=== PATIENT | female | born 1960 | race Two or more races ===

== ENCOUNTER 2023-01-25 09:40 | Outpatient (OUT) | payer OTHER, SELFPAY ==
[2023-01-25 10:31] LABS: Basophils Absolute Auto 0.1 10^3/uL (0.0-0.1); Basophils Percent Auto 0.7 % (0.2-2.0); Eosinophils Absolute Auto 0.2 10^3/uL (0.0-0.7); Eosinophils Percent Auto 2.5 % (0.9-7.0); Hematocrit 42.9 % (36.0-48.0); Hemoglobin 13.9 g/dL (12.0-16.0); Immature Granulocytes Abs Auto 0.04 10^3/uL (0.00-0.03); Immature Granulocytes Pct Auto 0.5 % (0.0-0.5); Lymphocytes Absolute Auto 1.5 10^3/uL (1.2-3.8); Lymphocytes Percent Auto 18.7 % (20.5-60.0); Mean Corpuscular HGB Conc 32.4 g/dL (29.9-35.2); Mean Corpuscular Hemoglobin 27.7 pg (26.7-34.0); Mean Corpuscular Volume 85.6 fL (81.0-99.0); Monocytes Absolute Auto 0.5 10^3/uL (0.3-0.8); Monocytes Percent Auto 6.2 % (1.7-12.0); Neutrophils Absolute Auto 5.8 10^3/uL (1.4-6.5); Neutrophils Percent Auto 71.4 % (43.0-75.0); Platelet Count 213 10^3/uL (150-450); Red Blood Count 5.01 10^6/uL (4.20-5.40); Red Cell Distribution Width 13.2 % (11.0-15.0); White Blood Count 8.1 10^3/uL (4.0-11.0)
[2023-01-25 11:29] LABS: Alanine Aminotransferase 29 U/L (14-59); Albumin Globulin Ratio 1.1; Albumin Level 3.9 g/dL (3.4-5.0); Alkaline Phosphatase 111 U/L (46-116); Anion Gap 10.7; Aspartate Amino Transferase 18 U/L (15-37); BUN Creatinine Ratio 23.4; Bilirubin Total 0.4 mg/dL (0.2-1.0); Calcium 9.5 mg/dL (8.5-10.1); Carbon Dioxide 29.6 mmol/L (21.0-32.0); Chloride 106 mmol/L (98-107); Cholesterol 171 mg/dL (<=200); Estimated GFR (African America >60 (>=60); Estimated GFR (Non-African Ame >60 (>=60); Globulin 3.4 g/dL; Glucose 113 mg/dL (74-106); HDL Cholesterol 43 mg/dL (40-60); Potassium 4.3 mmol/L (3.5-5.1); Sodium 142 mmol/L (136-145); Total Protein 7.3 g/dL (6.4-8.2); Triglycerides 215 mg/dL (<=150)
[2023-01-26 05:07] LABS: HCV Ab Non Reactive (Non Reactive); HIV Ab/p24 Ag Screen Non Reactive (Non Reactive)
== END 2023-01-25 09:41 | disposition home or self-care (01) ==
PROVIDERS: PCP Nurse Practitioner Primary Care; Visit Provider Nurse Practitioner Primary Care
DX: Z00.00 Encounter for general adult medical examination without abnormal findings (principal); Z11.59 Encounter for screening for other viral diseases; Z13.6 Encounter for screening for cardiovascular disorders; Z11.4 Encounter for screening for human immunodeficiency virus [HIV]; Z13.21 Encounter for screening for nutritional disorder
CPT/HCPCS: 36415; 80053; 80061; 82306; 82607; 85025; 86803; 87389

== ENCOUNTER 2023-01-29 09:25 | Outpatient (OUT) | payer OTHER, SELFPAY ==
--- NOTE | 2023-01-29 09:27 | MM_ITS ---
Patient: KARLOS PISANO Exam Date: 01/29/2023 : 1960 Gender:F Ordering : QI Hawk ALEJANDROALEXYS Admission #: [id number] Family : Order #: [id number] CLICK HERE TO VIEW EXAM RADIOLOGY REPORT PROCEDURE: MM TOMOSYNTHESIS SCREENING BI COMPARISON: MG MAMM SASCHA DIAG FU, 02/24/2022. MG MAMM SCREEN 3D SASCHA CAD, 01/04/2022. INDICATIONS: Screening Calculator Name NCI Breast Cancer Risk Assessment Tool 5 Year Breast Cancer Risk 2.00% Lifetime Breast Cancer Risk 9.70% Personal Breast Cancer No Personal Ovarian Cancer No Treatments None Family Cancers None LOCATION: [facility] BREAST COMPOSITION: Scattered areas fibroglandular density. FINDINGS: DIAGNOSTIC CATEGORY 2--BENIGN FINDING: RIGHT BREAST: No significant suspicious finding. Scattered benign-appearing nodules are present. Scattered benign-appearing calcifications are present. No significant change has occurred. LEFT BREAST: No significant suspicious finding. Scattered benign-appearing nodules are present. No significant change has occurred. RECOMMENDATIONS: ROUTINE MAMMOGRAM AND CLINICAL EVALUATION IN 12 MONTHS. PLEASE NOTE: A NORMAL MAMMOGRAM DOES NOT EXCLUDE THE POSSIBILITY OF BREAST CANCER. A CLINICALLY SUSPICIOUS PALPABLE LUMP SHOULD BE BIOPSIED. Dictated by: Maurizio Mcdonald M.D. on 01/30/2023 at 13:03 Approved by: Maurizio Mcdonald M.D. on 01/30/2023 at 13:09
== END 2023-01-29 09:26 | disposition home or self-care (01) ==
LOC: MAMMO 09:25
PROVIDERS: PCP Nurse Practitioner Primary Care; Visit Provider Nurse Practitioner Primary Care
DX: Z12.31 Encounter for screening mammogram for malignant neoplasm of breast (principal)
CPT/HCPCS: 77063; 77067

== ENCOUNTER 2023-02-09 08:24 | Outpatient (OUT) | payer OTHER, SELFPAY ==
--- NOTE | 2023-02-09 08:29 | CT_ITS ---
[address] [address] Patient Name: KARLOS PISANO MRN: [id number] date: 1960 Sex: F Assigned Patient Location: CT Current Patient Location: CT Accession/Order Number: [id number] Exam Date: 02/09/2023 08:35 Report Date: 02/09/2023 09:22 At the request of: QI RUGGIERO Procedure: CT chest wo con CT chest wo con: 02/09/2023 8:35 AM EDT CLINICAL HISTORY: 62 years old Female with Pulmonary Nodule R91.1. TECHNIQUE: CT chest wo con was performed with axial CT images through the thorax as well as sagittal and coronal reformations also obtained without intravenous administration of intravenous contrast. Dose reduction techniques were achieved by using automated exposure control and/or adjustment of mA and/or kV according to patient size and/or use of iterative reconstruction technique. COMPARISON: None FINDINGS: The heart is normal in size. There is no pericardial effusion. There are mildly enlarged mediastinal lymph nodes, largest measuring up to 1.0 cm. Right upper lobe calcified granuloma. No focal consolidation pneumothorax or pleural effusion. Status post cholecystectomy. The osseous structures are intact. CT/CT chest wo con IMPRESSION: Right upper lobe calcified granuloma. Mild mediastinal lymphadenopathy. Electronically authenticated by: VICKI KAPLAN Date: 02/09/2023 09:22
== END 2023-02-09 08:25 | disposition home or self-care (01) ==
LOC: CT 08:24
PROVIDERS: PCP Nurse Practitioner Primary Care; Visit Provider Nurse Practitioner Primary Care
DX: R91.1 Solitary pulmonary nodule (principal)
CPT/HCPCS: 71250

== ENCOUNTER 2023-02-19 13:33 | Outpatient (OUT) | payer OTHER, SELFPAY | END 2023-02-19 13:34 | disposition home or self-care (01) | LOC: PST 13:33 | PROVIDERS: PCP Nurse Practitioner Primary Care; Visit Provider Surgery | DX: Z01.818 Encounter for other preprocedural examination (principal); Z12.11 Encounter for screening for malignant neoplasm of colon ==

== ENCOUNTER 2023-02-23 07:13 | Day surgery (SDC) | payer OTHER, SELFPAY ==
[2023-02-15] MEDS: LACTATED RINGER'S SOLUTION 1,000 ML 75 ML IV (07:00)
[2023-02-23 07:29] VITALS: BP 145/107; PULSE 73; RESP 16; TEMP 35.9; O2SAT 98; BMI 38.2
[2023-02-23 07:57] LABS: Glucometer 111 mg/dL (74-106)
[2023-02-23 09:03] VITALS: BP 127/75; PULSE 80; RESP 18; O2SAT 100
[2023-02-23 09:18] VITALS: BP 128/74; PULSE 78; RESP 16; O2SAT 96
[2023-02-23 09:33] VITALS: BP 157/100; PULSE 64; RESP 16; O2SAT 96
--- NOTE | 2023-02-23 11:20 | PM.GSPRC ---
Date of procedure: 02/23/23 Indications for Procedure: This patient is a 62-year-old female who presents for screening colonoscopy. The risks benefits options and potential complications of the procedure were discussed in detail with the patient and they agreed to proceed and consent was signed. Pre-op diagnosis: colon cancer screening Post-op diagnosis: other (diverticulosis, colon polyp) Procedure: colonoscopy with snare cautery polypectomy Anesthesia: MAC Surgeon: Dwaine Castillo Procedure Summary: The patient was brought to the endoscopy suite and placed in the left lateral decubitus position.? Under MAC the fiberoptic colonoscope was introduced into the rectum. This was gradually advanced through the colon to the cecum. The cecal landmarks were identified. The bowel prep was good. Gradual withdrawal of the colonoscope was then undertaken. in the region of the splenic flexure there was a fairly large pedunculated adenomatous appearing polyp which was noted upon progressing the colonoscope. This was subsequently excised in its entirety with snare cautery polypectomy. The base was hemostatic. Due to its large size the polyp was grasped with a Kumar net. The colonoscope was then gradually withdrawn. There were a few scattered diverticula in the descending colon otherwise the remainder of the colon as well as anal rectal canal was unremarkable. The polyp was retrieved intact. Follow-up colonoscopy will be pending pathology report. The patient tolerated the procedure well and was transferred to the recovery area in stable condition. Estimated blood loss (mL): 1 Specimens: colon polyp Complications: No
== END 2023-02-23 09:33 | disposition home or self-care (01) ==
PROVIDERS: Anesthesiology; PCP Nurse Practitioner Primary Care; Visit Provider Surgery
PROC: (CPT 811; principal; 2023-02-23 08:30)
DX: Z12.11 Encounter for screening for malignant neoplasm of colon (principal); K57.30 Diverticulosis of large intestine without perforation or abscess without bleeding; D12.6 Benign neoplasm of colon, unspecified; I10 Essential (primary) hypertension; E07.9 Disorder of thyroid, unspecified; Z90.49 Acquired absence of other specified parts of digestive tract; Z90.710 Acquired absence of both cervix and uterus; Z87.891 Personal history of nicotine dependence; E11.9 Type 2 diabetes mellitus without complications
CPT/HCPCS: 00811; 45385; 36415; 36416; 82948; 88305; J2704

== ENCOUNTER 2023-04-14 11:18 | Emergency (ER) | payer OTHER, SELFPAY ==
[2023-04-14 11:22] VITALS: BP 131/86; PULSE 98; RESP 18; TEMP 36.8; O2SAT 96; BMI 39.5
--- NOTE | 2023-04-14 11:47 | XR_ITS ---
The [address] [address] Patient Name: KARLOS PISANO MRN: [id number] date: 1960 Sex: F Assigned Patient Location: ED.MAIN Current Patient Location: Accession/Order Number: [id number] Exam Date: 04/14/2023 12:15 Report Date: 04/14/2023 14:01 At the request of: PIA MCKENNA Procedure: XR hip LT 2V w/ pelvis EXAMINATION: XR hip LT 2V w/ pelvis, 04/14/2023 12:59 PM CDT INDICATION: pain TECHNIQUE: 3 views COMPARISON(S): None available FINDINGS: There is no fracture or malalignment. Joint spaces are preserved. Normal bone mineralization. Pubic symphysis and sacroiliac joints are congruent with mild degenerative changes of the sacroiliac joints. Soft tissues are unremarkable. Mild spondylosis of the lower lumbar spine. XR/XR hip LT 2V w/ pelvis IMPRESSION: No acute osseous findings. Electronically authenticated by: JOSELITO MAYO Date: 04/14/2023 14:01
--- NOTE | 2023-04-14 11:47 | ED.LOWEXI1 ---
HPI - Extremity Injury (Lower) General Chief Complaint: Extremity Injury, Lower Stated Complaint: HIP PAIN NON TRAUMATIC Time Seen by Provider: 04/14/23 11:35 Source: patient Mode of arrival: Wheelchair Limitations: no limitations History of Present Illness HPI Narrative: Coming to the ER with a left-sided hip pain that radiated down to her knee that has been going on at least for the last few days the patient denies any fall or trauma he also denies any other complaints of nausea vomiting or any other pain No history of weakness or numbness or tingling Related Data Home Medications Medication Instructions Recorded Confirmed ergocalciferol (vitamin D2) 1,250 .monthly 02/19/23 mcg (50,000 unit) capsule losartan 100 mg tablet 100 mg PO DAILY 02/19/23 02/23/23 metformin 500 mg tablet,extended mg PO BID 02/19/23 release 24 hr terbinafine HCl 250 mg tablet mg PO DAILY 02/19/23 thyroid (pork) 120 mg tablet 120 mg PO DAILY 02/19/23 02/23/23 (Treynor Thyroid) Previous Rx's Medication Instructions Recorded diclofenac sodium 75 mg 75 mg PO BID PRN pain #10 tabs 04/14/23 tablet,delayed release orphenadrine citrate 100 mg 100 mg PO BID PRN muscle spasm #14 04/14/23 tablet,extended release tabs Allergies Allergy/AdvReac Type Severity Reaction Status Date / Time No Known Drug Allergies Allergy Verified 02/23/23 07:27 Review of Systems ROS Status of ROS 10 or more systems reviewed and unremarkable except as noted in history and below [facility] Medical History (Updated 04/14/23 @ 13:26 by Janice Stein MD) Colonoscopy planned Knee arthropathy ?M17.10 - Unilateral primary osteoarthritis, unspecified knee (ICD-10) Surgical History (Updated 02/19/23 @ 12:25 by Lizette Sapp) H/O arthroscopic knee surgery ?Z98.890 - Other specified postprocedural states (ICD-10) H/O: hysterectomy ?Z90.710 - Acquired absence of both cervix and uterus (ICD-10) History of cholecystectomy ?Z90.49 - Acquired absence of other specified parts of digestive tract (ICD-10) Previous section ?Z98.891 - History of uterine scar from previous surgery (ICD-10) Family History (Updated 02/19/23 @ 12:26 by Lizette Sapp) Other Family history not known due to adoption Social History (Updated 02/19/23 @ 12:33 by Lizette Sapp) Smoking status: Former smoker Exam Narrative Exam Narrative: Nurses notes and vital signs reviewed and patient is not hypoxic. General: Well-appearing and in no apparent distress. Skin: Warm, dry, no pallor noted. No rash. Head: Normocephalic, atraumatic. Neck: Supple, non-tender. Eye: Pupils are equal, round and EOMI. No scleral icterus. Ears, Nose, Mouth, and Throat: TM are clear, no nasal mucosal hypertrophy. Oral mucosa is moist, no posterior oropharynx erythema, uvula is mid-line Cardiovascular: Regular Rate and Rhythm without murmur, gallop or rub. Respiratory: No accessory muscle use or respiratory distress. Lungs are clear to auscultation, no wheezing, rales or rhonchi Chest Wall: no tenderness Back: No midline thoracic or lumbar vertebral tenderness. No CVA tenderness Musculoskeletal: normal ROM, no calf or popliteal tenderness, no lower extremity edema/swelling, there is tenderness upon palpation of the left hip with no limitation of movement GI: Abdomen is soft, non-distended. Normal bowel sounds. No masses appreciated. No tenderness to palpation. No rebound, guarding, or rigidity noted. Neurological: A&O x4. No cranial nerve dysfunction observed. No truncal ataxia. Moves all extremities. Sensation intact. Psychiatric: Cooperative and interactive. Normal mood and affect. Constitutional Vital Signs, click to edit/add: Last Vital Signs Temp 98.3 F 04/14/23 11:22 Pulse 98 H 04/14/23 11:22 Resp 18 04/14/23 11:22 BP 131/86 04/14/23 11:22 Pulse Ox 96 04/14/23 11:22 O2 Del Method Room Air 04/14/23 11:22 Course Vital Signs Vital signs: Vital Signs Temperature 98.3 F 04/14/23 11:22 Pulse Rate 98 H 04/14/23 11:22 Respiratory Rate 18 04/14/23 11:22 Blood Pressure 131/86 04/14/23 11:22 Pulse Oximetry 96 04/14/23 11:22 Oxygen Delivery Method Room Air 04/14/23 11:22 Temperature 98.3 F 04/14/23 11:22 Pulse Rate 98 H 04/14/23 11:22 Respiratory Rate 18 04/14/23 11:22 Blood Pressure 131/86 04/14/23 11:22 Pulse Oximetry 96 04/14/23 11:22 Oxygen Delivery Method Room Air 04/14/23 11:22 MDM - Extremity Injury (Lower) MDM Narrative Medical decision making narrative: X-ray of the patient hip showed no acute significant pathology right now the patient was discharged home with supportive care with NSAID and Norflex The patient is to follow up with primary care physician in next 2-3 days or to return to the emergency department should any of the signs or symptoms worsen or new symptoms develop. The patient agrees with the following Diagnosis and Treatment plan and the patient will be discharged home. Discharge Plan Discharge Chief Complaint: Extremity Injury, Lower Clinical Impression: Acute hip pain Patient Disposition: Home, Self-Care Time of Disposition Decision: 13:25 Condition: Good Prescriptions / Home Meds: New orphenadrine citrate 100 mg tablet extended release 100 mg PO BID PRN (Reason: muscle spasm) Qty: 14 0RF diclofenac sodium 75 mg tablet,delayed release (DR/EC) 75 mg PO BID PRN (Reason: pain) Qty: 10 0RF No Action metformin 500 mg tablet extended release 24 hr PO BID terbinafine HCl 250 mg tablet PO DAILY ergocalciferol (vitamin D2) 1,250 mcg (50,000 unit) capsule .monthly losartan 100 mg tablet 100 mg PO DAILY thyroid (pork) [Treynor Thyroid] 120 mg tablet 120 mg PO DAILY Instructions: Hip Pain (ED) Stand Alone Forms: Portal Instructions Referrals: QI RUGGIERO APRN [Primary Care Provider] - 1 week Discharge Date/Time: 04/14/23 13:37
[2023-04-14] MEDS: ORPHENADRINE 60 MG/ 2 ML VIAL IM (12:09)
[2023-04-14] MEDS: KETOROLAC TROMETHAMINE 30 MG/ML VIAL IM (12:09)
[2023-04-14 13:36] VITALS: BP 94/53; PULSE 76; RESP 16; O2SAT 97
== END 2023-04-14 13:37 | disposition home or self-care (01) ==
PROVIDERS: Emergency Provider Emergency Medicine; PCP Nurse Practitioner Primary Care
DX: M25.552 Pain in left hip (principal); Z79.899 Other long term (current) drug therapy; Z79.84 Long term (current) use of oral hypoglycemic drugs; Z90.710 Acquired absence of both cervix and uterus; Z90.49 Acquired absence of other specified parts of digestive tract; Z98.890 Other specified postprocedural states; Z98.891 History of uterine scar from previous surgery; Z87.891 Personal history of nicotine dependence
CPT/HCPCS: 73502; 96372; 99284

== ENCOUNTER 2023-04-17 07:51 | Outpatient (RCR) | payer OTHER, SELFPAY | END 2023-04-18 16:36 | disposition home or self-care (01) | LOC: PT 07:51 | PROVIDERS: PCP Nurse Practitioner Primary Care; Visit Provider Nurse Practitioner Primary Care | DX: Z02.71 Encounter for disability determination (principal); M25.562 Pain in left knee; M25.561 Pain in right knee; G89.29 Other chronic pain | CPT/HCPCS: 97750 ==

== ENCOUNTER 2024-02-14 08:45 | Outpatient (OUT) | payer OTHER, SELFPAY ==
--- OUTSIDE RECORDS SUMMARY | 2024-02-14 08:50 | XMS_ITS | CCD ---
Author Organization [facility]iniSyn[facility] Care Team Providers Care Tumbling Instructor Name Role Phone Jd Timmons Unavailable Unavailabl e *SELF, REFERRED Unavailable Unavailable Maurizio Penny Unavailable UnavailJd Almaraz Unavailable UnavailMaurizio Paulino Primary Care Provider UnavailDada Ely Attending Provider Unavailable Maurizio Penny Primary Care Provider Maurizio Penny Unavailable Unavailable Unavailable JOSE D CALDERON Attending Unavailable DR DARREN ALARCON V Consulting Unavailable YUMIKO, JOSE D Primary Care Unavailable YUMIKO, JOSE D Admitting Unavailable YUMIKO, JOSE D Consulting Unavailable Zieber, Consulting Unavailable YUMIKO, JOSE D Admitting Unavailable YUMIKO, JOSE D Attending Unavailable DANIELA CALDERONI Consulting Unavailable MISC, DR JACKSON Attending Unavailable DR DARREN ALARCON V Consulting Unavailable MISC, DR JACKSON Admitting Unavailable YUMIKO, JOSE D Primary Care Unavailable MISC, DR JACKSON Consulting Unavailable SHAMMO, QI Primary Care Unavailable Unavailable Primary Care Provider UnavailJORDON Matias Referring Unavailable Maurizio Penny Primary Care Unavailable Livan Andrade Attending Unavailable Livan Andrade Admitting Unavailable JORDON PAT Attending Unavailable JORDON PAT Attending Unavailable MAE BOOGIE Referring Unavailable EROS ROGERS Attending Unavailable EROS ROGERS Attending Unavailable Unavailable Unavailable Unavailable Medications Current Medications Medication Drug Class(es) Dates Sig (Normalized) Sig (Original) acetaminophen 325 mg oral tablet (3 sources) Start: 12-10-2018 take 650 mg by mouth every four hours Acetaminophen Active 650 MG Oral Q4H 0 December 10, 2018 1:14pm acetaminophen 325 mg / oxyCODONE hydrochloride 5 mg oral tablet (6 sources) Opioid Agonist Start: 01-01-2020 oxyCODONE-acetamino phen 5-325 MG per tablet Start: 12-09-2017 take 1 tablet by lula th every six hours Oxycodone-Acetaminophen Active 1 TAB Ora l Q6H December 16, 2018 6:38pm ascorbic acid 1000 mg oral tablet (3 sources) Vitamin C Start: 08-30-2018 take 1000 mg by mouth once daily Ascorbic Acid (Vitamin C) Active 1000 MG Oral Daily August 30, 2018 11:01am atorvastatin 10 mg oral tablet (1 source) HMG-CoA Reductase Inhibitor Start: 01-23-2023 take 1 tablet by mouth once daily atorvastatin (LIPITOR) 10 mg tablet Indications: Mixed hyperlipidemia TAKE ONE TABLET BY MOUTH DAILY 90 tablet 3 01/23/2023 Active celecoxib 200 mg oral capsule (2 sources) Nonsteroidal Anti-inflammatory Drug Start: 03-25-2020 take 1 capsule by mouth once daily celecoxib 200 MG capsule Take 1 capsule by mouth daily. 30 capsule 0 03/25/2020 Active cholecalciferol 1000 unt oral capsule (3 sources) Vitamin D Start: 08-30-2018 take 1 capsule by mouth once daily Cholecalciferol (Vitamin D3) Active 1 CAP Oral Daily August 30, 2018 11:01am ergocalciferol 1.25 mg oral capsule (5 sources) Provitamin D2 Compound Start: 10-31-2022 take 1 capsule by mouth every 30 days VITAMIN D2 1,250 mcg (50,000 unit) capsule Take 1 capsule (50,000 Units total) by mouth every 30 (thirty) days. 3 capsule 3 10/31/2022 Active Start: 03-27-2016 take 99678 [IU] by m outh every month Ergocalciferol (Vitamin D2) Active 17494 UNITS Oral every month December 08, 2017 7:31pm losartan potassium 100 mg oral tablet (8 sources) Angiotensin 2 Receptor Ander Start: 04-12-2021 take 1 tablet by mouth once daily losartan (COZAAR) 100 mg tablet 1 tab(s), PO, Daily, # 90 tab(s), 3 Refill(s), Pharmacy: [facility] [id number], TAKE ONE TABLET BY MOUTH DAILY 0 04/12/2021 Active Start: 03-04-2020 losartan 100 M G tablet Start: 12-08-2017 take 25 mg by mouth once daily in the morning Losartan Active 25 MG Oral Every morning December 08, 2017 7:31pm Start: 03-12-2017 take 0.5 tablet by m outh in the morning losartan (COZAAR) 25 mg tablet Take 0.5 tablets (12.5 mg total) by mouth in the morning. 0 03/12/2017 Active Start: 06-09-2016 Losartan Anjali sium 25 MG Oral Tablet Quantity: 15 Refills: 0 Ordered: 12-Mar-2017 DO Start : 09-Jun-2016 Active 24 hr metFORMIN hydrochloride 500 mg extended release oral tablet (2 sources) Biguanide Start: 08-21-2022 End: 08-14-2023 take 1 tablet by mouth twice daily metFORMIN XR (GLUCOPHAGE XR) 500 mg 24 hr tablet Indications: Type 2 diabetes mellitus without complication, without long-term current use of insulin (CMS-HCC) TAKE ONE TABLET BY MOUTH TWICE A DAY 180 tablet 3 08/14/2023 Active omega 6-sft-fwu-fish oil (Fish OiL) 300-1,000 mg capsule (1 source) omega 3-dha-epa- fish oil (Fish OiL) 300-1,000 mg capsule Take by mouth. 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 TAKE ONE TABLET BY MOUTH ONCE DAILY EXCEPT TAKE 2 TABLETS BY MOUTH ON SUNDAY AND TAKE 2 TABLETS BY MOUTH ON SUNDAY 117 tablet 3 10/03/2022 Active Start: 10-12-2017 [place] Thyroid 60 MG tablet Completed/Discontinued Medications Medication Drug Class(es) Dates Sig (Normalized) Sig (Original) DULoxetine 60 mg delayed release oral capsule (1 source) Serotonin and Norepinephrine Reuptake Inhibitor Start: 8 take 1 capsule by mouth once daily DULoxetine HCl - 60 MG Oral Capsule Delayed Release Particles TAKE ONE CAPSULE BY MOUTH EVERY DAY Quantity: 30 Refills: 0 Ordered: 30-Apr-2018 Nereyda Ford DO Start : 20-Mar-2018 Active ibuprofen 800 mg oral tablet (1 source) Nonsteroidal Anti-inflammatory Drug Start: 8 Ibuprofen 800 MG Oral Tablet take 1 tablet by mouth every 6 to 8 hours if needed for MODERATE pain Quantity: 30 Refills: 0 Ordered: 09-Dec-2017 DO Start : 09-Dec-2017 Active lidocaine 0.05 mg/mg medicated patch (1 source) Antiarrhythmic, Amide Local Anesthetic Start: 8 Lidocaine 5 % External Patch APPLY 1 PATCH TO THE AFFECTED AREA AND LEAVE IN PLACE FOR 12 HOURS, THEN REMOVE AND LEAVE OFF FOR 12 HOURS. Quantity: 1 Refills: 1 Ordered: 23-Jan-2018 AlbertNereyda johnson DO Start : 23-Jan-2018 Active meloxicam 15 mg oral tablet (1 source) Nonsteroidal Anti-inflammatory Drug Start: 8 take 1 tablet by mouth once daily Meloxicam 15 MG Oral Tablet TAKE 1 TABLET BY MOUTH EVERY DAY Quantity: 30 Refills: 2 Ordered: 10-Apr-2018 AlbertNereyda johnson DO Start : 23-Jan-2018 Active methylPREDNISolone 4 MG Oral Tablet Therapy Pack (1 source) Start: 8 methylPREDNISolone 4 MG Oral Tablet Therapy Pack as directed Quantity: 1 Refills: 0 Ordered: 28-Dec-2017 Kareen Hardy MD Start : 28-Dec-2017 Active predniSONE 10 mg oral tablet (1 source) Start: 8 take 1 tablet by mouth four times daily predniSONE 10 MG Oral Tablet take 1 tablet by mouth four times a day for 3 days then 1 tablet ... Quantity: 30 Refills: 0 Ordered: 27-Aug-2017 DO Start : 27-Aug-2017 Active Problems Active Problems Problem Classification Problem Date Documented Date Episodic/Chronic Complication of device; implant or graft (2 sources) Pain due to hip joint prosthesis; Translations: [Pain due to knee joint prosthesis] Episodic Diabetes mellitus with complications (3 sources) Type 2 diabetes mellitus with hyperglycemia; Translations: [Type 2 diabetes mellitus with hyperglycemia] Onset: 10-10-2023 Chronic Diabetes mellitus without complication (1 source) Type 2 diabetes mellitus without complication; Translations: [Type 2 diabetes mellitus without complications] 08-14-2023 Chronic Essential hypertension (2 sources) Essential hypertension; Translations: [Essential (primary) hypertension] Onset: 07-06-2016 Resolved: 01-10-2022 05-21-2022 Chronic Nonmalignant breast conditions (4 sources) Unspecified lump in unspecified breast; Translations: [UNSPECIFIED LUMP IN UNSPEC BREAST] Onset: 02-24-2022 Episodic Osteoarthritis (6 sources) Bilateral primary osteoarthritis of knee; Translations: [Bilateral osteoarthritis of knees] Onset: 06-05-2018 Chronic Other circulatory disease (1 source) H/O: hypertension; Translations: [Personal history of other diseases of circulatory system] Episodic Other connective tissue disease (3 sources) History of total knee arthroplasty; Translations: [History of total left knee replacement (TKR)] Chronic Other non-traumatic joint disorders (1 source) Arthropathy; Translations: [Arthropathy, unspecified, site unspecified] Chronic Other non-traumatic joint disorders (2 sources) Pain in unspecified knee; Translations: [Chronic knee pain] Episodic Other screening for suspected conditions (not mental disorders or infectious disease) (6 sources) Encounter for screening for osteoporosis; Translations: [Encounter for screening mammogram for malignant neoplasm of breast] Onset: 01-04-2022 Episodic Residual codes; unclassified (4 sources) Asymptomatic menopausal state; Translations: [ASYMPTOMATIC MENOPAUSAL STATE] Onset: 02-24-2022 Episodic Thyroid disorders (1 source) 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; Translations: [Other specified hypothyroidism] Onset: 07-06-2016 05-21-2022 Chronic Unclassified (1 source) History of bilateral total knee replacement; Translations: [History of total knee arthroplasty, bilateral] Past or Other Problems Problem Classification Problem Date Documented Da te Episodic/Chronic Conditions associated with dizziness or vertigo (1 source) Dizziness and giddiness; Translations: [Dizziness and giddiness] Resolved: 01-10-2022 01-10-2022 Episodic Other lower respiratory disease (1 source) Dyspnea; Translations: [Shortness of breath] Resolved: 01-10-2022 01-10-2022 Episodic Other nutritional; endocrine; and metabolic disorders (1 source) Obesity; Translations: [Obesity, unspecified] Resolved: 01-10-2022 01-10-2022 Chronic Results Test Name Value Interpretation Reference Range Facility Follow-Upon 01-10-2024 Follow-Up [id number] Anju Pisano 1960 F Date Provider Department Center 01/10/2024 [id number] PAT [facility] No family history on file Level of Service:07779 CO OFFICE/OUTPATIENT ESTABLISHED LOW MDM 20 MIN Reason for Visit and Comments: Follow-up [647934] [facility] Coding Summaryon 12-01-2023 Coding Summary HTMLBase 64 XzmkeoqiVAh6zSg+PGhlYWQ+TU5NMUFxW 99geOGpsP5dS9BFVYcEXtqiFOZMJLeFEk FiqhTcUY3irXLqQVCe IC8+ZY3mEFHhTpjwtPKjp2Y5pYI4X32ew t9nPThmoZG1KATuNlHqjsghb6yugPc6PY cuNmluOyBt JVHcwU04ZBT7bJ71Ni72uZNofENbh1hao Zr0KoTgLIVzCAC6fEleVPtnh0StVIPeH1 8jsSAzm8F9 QCVecQuvcIGuFxDomNF1wR3tZYsmmodai 7qhwsqxWgv2cc92yMDyu1O1iMZ6N9Wzri Y2SQLmwLEh PzkdxSPXaF6qgkwvq7mhjaknAsKyCQMqV Xx9OXw1NYMqxKgdGaUwJZ08LGX3FQHqlw UkP7TzYNJv uSjwRwS1j4K4Vq9CY8DBSwqdR2VDWVDJG TwvdGQ+GW54pi35U4OoYllsWul8XKSbQO E1sIK2sK1v CTMcGBimy9C8yXK6F4PiifQtct7hz3maL XTuVNzcK38mcZUua7I1GMWucYZ3LLGziH lkCySueB94 Oyc+UIIqwRndl4JuEumlj4txe3wikDp4A pwmSYAsvzKvmVnsFFJ9k5IxPw3gDKXedM J0cCK3tA9p MtKxRoA3KPykD006IzGzeQLoVqmjT87cD 3JvdXA+YCCgHvb7RIKpkIgpCF4tS2HcXI RpbmctbGVm hBgsPP4dKFAmdvpsKUVmgJ2eOEQhA5a8Y uYeZeY2NLhjZ5BkKMNwsrgcHs46qE1bXt OxZmK0NKdo Z1VydcL3TJAlbZHxZZpkIIR0E25pg8J7E QKuMFUjUMW8eQD5hO6zmAqnrlaabQNmdL sgdmVydGlj VDptGQgsP730KCCaaOieYwGoCTpuLqMEP XRlOiAgMDYvMjIvMjAyNDwvdGQ+PHRkIH W8mUpzHQKq cJWmHRymDf0ywFbbxYvpTL5rFOEiotfaV WJakI2gUGYdmFPncFlcFI6eELPmcqreg3 07PqZfBGF5 EEEdrURpC8LsxB5cGxBeGRHfCCEuH5Uhp KEaXPvxA124XHjuJtN0NDScbjLrN8JqMC FsaWduOiB0 k5D1Sc7Yl5RzwprdL9ErrJMrJyOmMkkvL Jc2C4XxMlgfiOU+KL69MXHsRA72GYw1QI V9jLxeTNjw YJMtF0XzsD6dUiNdSQPbMRDiGep+PHRhY vbyZSqjGNEjEPoqIIUuZaEzgIvwVS5kNc 9yZGVyLWNv rLijrDUwOkCce4rdDAZlSWfmRC9zuPfpC 3XzzVL8FLYqt8w0Hx68O07eK7IgbMK+PG CnxYH1sQB3 pO1oSjDiVlC0ESrvR069LaJxgTQxOhras 3hom1iitOw3SpI2PMSwruDsuAaxNGM2u6 RkVq33I07d ZTxdEKUvAABqUIQfGRHdlZpamw2soT1hO i8+JRNekUF2aEK7cS6tWaVnHaQ3CVsoG1 49InRvcCIv Avnlx4wph2vixJb7HeJhLPCmbxIytOfzD KQ4z5NaIe98T6SooBzuu5KeSxy4kf36bU Gjf4K3rXP6 M3TiDSAmryiolZOfhPxnZO8zPLMdlnjlF UWwoU9nROPcO0p7WmVuOsO2FIczG1Jzij X7TPHdzZSq VFTezZPUgN2nfnhaf6ivqvprHjMgZAWqI Gz9SZs2RAUwrQdeQlRwYJH0XdX6ENS7oY VimB5qpNwg xlqgpN8oJcl+HOT8vCKctRFBIP9kQaetl GQ+CYFxZMW7lXreJVnmTHJrwR9fVGSdH0 l4ZpHkFiZ5 AGauC2IqeeW9ZDJkdLNqYNXewNWNhM8sl wkmq3bgjswhYyVbZFGbABo4SMp4LZOgqR duOiBsZWZ0 LaN8UGH3tVNqsW3caNhofamaqE7qHox+Q bwgxTfoXKI2ISh7Q1QgJie0HPOmdTsbZG 0ncGFkZGlu Oy2doLmlrQmbQD1oKMAqdiwag420EpWmp 4uuISKryWQpORhnLBJ7G23df0N5ZXWvJA GhNMB5xMM2 sS3irCqlfjcitSKnmCibotOxfDibISszB SqbD597OJSyvHmzTkYkNNl5T1WgUlx5SZ AczYkhLO3z fZEfVJgvEk7jhHhirTtnXO7oWMSidtqbw 776JxZui4giBWZbeBHsLIrwNHQ7A37ng8 K0IHNtFJXg QXM3jLK1uD2piRhuxerbkXSpgTghkaHjs UtvPNjvDAxtO102YAVexQrmQnHozIs7U1 KbVcp1NUYi eNiqDW3uzYBmSKttKt9wlPoigUqwJL4eN XIcocqsg099JcCzl8qkLPXkhEEtNYsaQS O6P98sn4N9 XMRxFTEbSNC0fLG2rU2obQkckaijdKBco IxzguAtvGgsCVcmQKuhW951OVSwpOfuHa BhdGllbnQg JPcaSSb7J9KdIbonvFD+AR73SXQiIM34o CLbiTHzq4pzoAy7OzOtZCAmGSJ0jTubIW eef9SnKMSb C32txTItk9K4TUBscBvloCKtVoZlpGE3u I6mMFsoiaxqd5gnfrdaTullf3ahal55fT 10M90dBZsf JEAxWIWsANHaVODyqFqblg1nsO1dFr5+P BJqpCO0vHK6hY6yBTKeJjX5CPidN965Yy RvcCIvPjxj t3tjb1etzMn4LdG2DWPaosZdsNvtJFF0d 0DvHy96X30tFOjdFBUvBGYiVEKgYJPsqD srcb1grY0a Ii8+RTQmpNH3xNG8mZ2uPjHxPpW7EAvaI 713WtSqkVAsXzvgR22iC9NmbKS+PHRyPj j4HIKryZvh OK7xpTUbMWmcBs0dSKJ5GkLkEuVfFDlyN 6BlCXAygufifrzigBI2XKPmJFMbmC49Jz 9udDogMTBw oNIRzW6mshisi7bsqrozNxAgZJYtSYd4Z Oh8PILuaBpxNpMnVRD7IgQ3WLW5mRYbzQ 1hbGlnbjog dA5kO7SpECSlczddGm85oM6sFtKxZbQ0T GluOyc+VStNFqbsFInPIdSJPP93L6MrUw q6VOAuxGwn NI4xwEWgNMdxVu6cpQmqqOylKN5oFVUni evkFMLoxX7hQPSugEKdmYthET9xTXKasq gpo243KnOj MGN1ZQZscANnP1RuuK1pBwJeZEPqMJNiP 6TqiVMjYPenN988FCnyJlR7XECzbdZeQ7 FsLWFsaWdu JgJ3u1X7Sq6fSP6rIH1aQVIdUQ59HV28t HBma4S0bBL6N6AxBBXwyriziwfvlGA1UJ XkAERovK83 qNTnWSjnLq3ju9J1c434IYPdUGHjpH94L i4qzMewYSEkhWKNiP6lkuodc6uouptjCo AwMDAwMDt0 CBs3TKApwCouVvEjVQP2ByU9XRG6aLAsk O3esMfsqhmorC0vYpy+SsJvVAZzleE0W6 HfGcv7HECv iJoyWI7mlFCbEGalYh7xzLyisZkuYO7bM HOrlqxzPQFliN9lYULkyKYwdEabGT6xUV Xkmgiaa594 NsDfXLK4MODpfOCzC6WifL9gVmQiTUPaM LYfO4LeuFLbCGxzI347VBkiPvQ0JQGjpd TrM2BtNAEg tRpdTpJ9c6W2Rd2GRQ2XHDI0Q7WpGuq4Z UMwwGvuLG2erJHpSNxgKm8nmUelgVhnHD 4wNTBpbjtw IUJaaQ2rFBFurDOtkVriLP6uZSKbbzgau 215NeZlUYX7KNRrgXFwU2PrkO0jOiRtYE RgQPZlR2Xc cQQfMZsiQ258IAmmSrA4XJPovvPhW1LhN JHfqFkfZvJ4a9Y3Ww0AlRSsV9LaB2c8Q2 RkPjwvdHI+ QU57MJSlOA66aEAmuVNwu1qlzEj4TkVsQ OLeROS4wBcdNVrth6MeNSJsP87xrGOcb3 I5STMqzXit xVJgGkMcbNB3bR8qXEnkqzknn1bypsitY lmxd6zory32wU09V86yNTixRHIxEWLlYW UiIHZhbGln co7gdW4mAq3+BEIxyVG6eJH2aY9lUuVwW rY2ZBlmK770EqVhyQBkGpvlc3iwp1pdbR b2ReZvLZSd imUhxVprCYE9r0IwTr50R47oCSngEBMnY OGvYEGjMACheGucyo7nrD2uAu7+PC9jb2 vtyc28wM64 dHI+LGIlUEP1hZtqELegOIWkyM6bMIicT nA9BTLuBmMuiZ78zDTdKEftBd9iqPcjkJ ijSN8rMHXj qbzob392HoTbe1gfTGFldIQfDZtrPBX8E 47kb6B0SBPvLCSzJDC0vTM8xT2vhSwxwm ogbGVmdDsg vjJiqBulRWuiFQavE804FKAdjJgtFdVzb FZhN4dekrZPPH2kFrjgcRU+PDIoKZQ2zV xlPSdwYWRk vT2cLCFsP1u7BsMkEfP9TMtxU5EtxzV3K EHfuSVpZQHfkHAAdA6vnlivj1wowgztNp AwMDAwMDt0 CXy3KWVjqUdpWiMpPUA5BoV6ILT4kPKtq S3esOzpisxwvJ4hAjo+RklOOjwvdGQ+PH NbPKH6zMpi CWhhCJEgiM1gRYHpU8h0MlLpIgF4IOljW 9PzxlN9JMBrxBBbZGLmdYZUzV9zautoq9 xvcjogIzAw RAMkTXo3AMw1BVIotVwlIcBvHJQ6XrL3J YF8dXMsvJ6vxJfwyaxfhY6gFbc+TVJOOj wvdGQ+PHRk FSQ4yPoiIPwaDVYfaR3qNDAeP2j7PqQyB zU2BMhfP6TyrlD2OUVcrWLgBHDgqEDWcU 6dmycsv7oa jfvtYaQzFXXiCXe8AXx0EJMvwAheJhPkR BS1FwK9WUJ7mCJitH5ctIsfzgiqhG4xWh c+RTO4ARB6 TH71KB92A4NrEwzucLRqbOB+PHRhYmxlI TjiOZNbIOzwYJHfAlSveMzzWY5aPh7hGG VyLWNvbGxh cHN (more content not included)... Normal [facility] ED Clinical Summaryon 2023 ED Clinical Summary [facility] - Emergency Department [address] [place], [place] [id number] ED Clinical Summary PERSON INFORMATION Name: ANJU PISANO Age: 63 Years Sex: FEMALE : 1960 MRN: Acct#: Visit Reason: Closed head injury without LOC; Knee pain-swelling; Fall; FALL/KNEE PAIN Arrival: 11/20/2023 18:12:43 Discharge: 11/20/2023 19:57:00 LOS: 000 01:45 Check In: 11/20/2023 18:12:43 Checkout:11/20/2023 19:57:00 Address: [address] [place] [id number] PCP: Maurizio Penny DO PROVIDER INFORMATION Provider Role Assigned Unassigned Cyndie Pedraza CERTIFIED ORTHOTIST Nurse 11/20/2023 18:16:48 Livan Andrade MD ED Provider 11/20/2023 18:20:26 Jaylyn Bishop CERTIFIED ORTHOTIST Nurse 11/20/2023 19:07:19 VITALS INFORMATION Vital Sign Triage Latest Temperature Tympanic Temperature Temporal Artery Pulse Rate 76 bpm 74 bpm O2 Sat 100 % 100 % Respiratory Rate 16 br/min 16 br/min Blood Pressure /72 mmHg /72 mmHg MEDICAL INFORMATION Medications Given: Allergy Information: No known allergies PHYSICIAN DOCUMENTATION Patient: ANJU PISANO Age: 63 years Sex: FEMALE : 1960 Associated Diagnoses: Contusion of knee, left; Fall on same level from tripping; Forehead contusion Author: Livan Andrade MD Basic Information Time seen: Date & time 11/20/2023 18:20:00. History source: Patient, EMS. Arrival mode: Ambulance. History limitation: None. Additional information: Chief Complaint from Nursing Triage Note : Chief Complaint 11/20/2023 18:12 EDT Chief Complaint Patient presents to the ER with left knee pain from a fall, hit head, no loss of consciousness . History of Present Illness The patient presents with left, knee injury, lower leg injury. The onset was just prior to arrival. The course/duration of symptoms is constant. Type of injury: fall. Location: Left thigh leg knee. The character of symptoms is pain, swelling and loss of mobility. The degree at onset was severe. The degree at present is moderate. Therapy today: emergency medical services and Fentanyl IM by EMS. 63-year-old female presented to ER for evaluation of injury from a fall. Patient stated the injury occurred prior to arrival. Patient brought to ED by EMS with significant pain at the left knee with concern regarding possible fracture. On arrival to ER, the patient was awake and alert, GCS of 15. Indicated that she was walking into the building, took a misstep, tripped, fell forward. Struck her forehead against a post, causing abrasion and contusion. Stated that she did not have LOC. Only stated that she had mild pain around the area, with some swelling. Denies headache, denies visual changes. No neck pain. Stated that she landed hard onto her left knee. Indicated that she had significant pain, pain with movement. Afraid to move. Noted swelling. Stated that she had 2 previous knee replacement. First 1 about 6 years ago, and then 2 years ago had some problems, had to have it replaced 2 years ago. Review of Systems Constitutional symptoms: Negative except as documented in HPI. Skin symptoms: Abrasions. Eye symptoms: Vision unchanged. ENMT symptoms: Negative except as documented in HPI. Cardiovascular symptoms: No chest pain, Gastrointestinal symptoms: No abdominal pain, Musculoskeletal symptoms: Muscle pain, Joint pain. Neurologic symptoms: No headache, no dizziness, no numbness, no tingling. Hematologic/Lymphatic symptoms: Negative except as documented in HPI. Health Status Allergies: Allergic Reactions (Selected) No known allergies. Medications: (Selected) Inpatient Medications Ordered Lexiscan: 0.4 mg, 5 mL, IV Push, As Directed Normal Saline Flush: 5 mL, IV Push, As Directed Prescriptions Prescribed Advair Diskus 250 mcg-50 mcg inhalation powder: 1 puff(s), INH, BID, 60 EA, 3 Refill(s) Antivert 25 mg oral tablet: 25 mg = 1 tab(s), PO, TID, PRN: for dizziness, 30 tab(s), 0 Refill(s) Kenalog 0.1% topical cream: 1 mark, TOP, BID, 60 gm, 0 Refill(s) losartan 100 mg oral tablet: 1 tab(s), PO, Daily, 90 tab(s), 3 Refill(s) Documented Medications Documented [place] Thyroid 60 mg oral tablet: 60 mg, 1 tab(s), PO, Daily, 0 Refill(s) Flax Seed Oil: 1 tab(s), PO, Daily, 0 Refill(s) Vitamin C 500 mg oral tablet: 500 mg, 1 tab(s), PO, Daily, 30 tab(s), 0 Refill(s) Vitamin D with Minerals oral tablet: 1 tab(s), PO, Daily Vitamin D3: 2,000 International_Unit, PO, Daily, 0 Refill(s) calcium (as carbonate) 600 mg oral tablet: 600 mg, 1 tab(s), PO, Daily, 60 tab(s), 0 Refill(s) cinnamon: 1,000 mg, PO, BID, 0 Refill(s) ibuprofen 600 mg oral tablet: 600 mg = 1 tab(s), PO, q6hr (int), 0 Refill(s) metFORMIN 500 mg oral tablet: 500 mg = 1 tab(s), PO, TID, 0 Refill(s). Past Medical/ Family/ Social History Medical history: Resolved Tumor ([id number]): 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 Resolved. Dental infection ([id number]): Resolved. Diverticulitis ([id number]): Resolved., Reviewed as docume (more content not included)... [facility] ED Note - Physicianon 2023 ED Note - Physician Patient: ANJU PISANO Age: 63 years Sex: FEMALE : 1960 Associated Diagnoses: Contusion of knee, left; Fall on same level from tripping; Forehead contusion Author: Livan Andrade MD Basic Information Time seen: Date & time 11/20/2023 18:20:00. History source: Patient, EMS. Arrival mode: Ambulance. History limitation: None. Additional information: Chief Complaint from Nursing Triage Note : Chief Complaint 11/20/2023 18:12 EDT Chief Complaint Patient presents to the ER with left knee pain from a fall, hit head, no loss of consciousness . History of Present Illness The patient presents with left, knee injury, lower leg injury. The onset was just prior to arrival. The course/duration of symptoms is constant. Type of injury: fall. Location: Left thigh leg knee. The character of symptoms is pain, swelling and loss of mobility. The degree at onset was severe. The degree at present is moderate. Therapy today: emergency medical services and Fentanyl IM by EMS. 63-year-old female presented to ER for evaluation of injury from a fall. Patient stated the injury occurred prior to arrival. Patient brought to ED by EMS with significant pain at the left knee with concern regarding possible fracture. On arrival to ER, the patient was awake and alert, GCS of 15. Indicated that she was walking into the building, took a misstep, tripped, fell forward. Struck her forehead against a post, causing abrasion and contusion. Stated that she did not have LOC. Only stated that she had mild pain around the area, with some swelling. Denies headache, denies visual changes. No neck pain. Stated that she landed hard onto her left knee. Indicated that she had significant pain, pain with movement. Afraid to move. Noted swelling. Stated that she had 2 previous knee replacement. First 1 about 6 years ago, and then 2 years ago had some problems, had to have it replaced 2 years ago. Review of Systems Constitutional symptoms: Negative except as documented in HPI. Skin symptoms: Abrasions. Eye symptoms: Vision unchanged. ENMT symptoms: Negative except as documented in HPI. Cardiovascular symptoms: No chest pain, Gastrointestinal symptoms: No abdominal pain, Musculoskeletal symptoms: Muscle pain, Joint pain. Neurologic symptoms: No headache, no dizziness, no numbness, no tingling. Hematologic/Lymphatic symptoms: Negative except as documented in HPI. Health Status Allergies: Allergic Reactions (Selected) No known allergies. Medications: (Selected) Inpatient Medications Ordered Lexiscan: 0.4 mg, 5 mL, IV Push, As Directed Normal Saline Flush: 5 mL, IV Push, As Directed Prescriptions Prescribed Advair Diskus 250 mcg-50 mcg inhalation powder: 1 puff(s), INH, BID, 60 EA, 3 Refill(s) Antivert 25 mg oral tablet: 25 mg = 1 tab(s), PO, TID, PRN: for dizziness, 30 tab(s), 0 Refill(s) Kenalog 0.1% topical cream: 1 mark, TOP, BID, 60 gm, 0 Refill(s) losartan 100 mg oral tablet: 1 tab(s), PO, Daily, 90 tab(s), 3 Refill(s) Documented Medications Documented [place] Thyroid 60 mg oral tablet: 60 mg, 1 tab(s), PO, Daily, 0 Refill(s) Flax Seed Oil: 1 tab(s), PO, Daily, 0 Refill(s) Vitamin C 500 mg oral tablet: 500 mg, 1 tab(s), PO, Daily, 30 tab(s), 0 Refill(s) Vitamin D with Minerals oral tablet: 1 tab(s), PO, Daily Vitamin D3: 2,000 International_Unit, PO, Daily, 0 Refill(s) calcium (as carbonate) 600 mg oral tablet: 600 mg, 1 tab(s), PO, Daily, 60 tab(s), 0 Refill(s) cinnamon: 1,000 mg, PO, BID, 0 Refill(s) ibuprofen 600 mg oral tablet: 600 mg = 1 tab(s), PO, q6hr (int), 0 Refill(s) metFORMIN 500 mg oral tablet: 500 mg = 1 tab(s), PO, TID, 0 Refill(s). Past Medical/ Family/ Social History Medical history: Resolved Tumor ([id number]): 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 Resolved. Dental infection ([id number]): Resolved. Diverticulitis ([id number]): Resolved., Reviewed as documented in chart. Surgical history: Joint replacement ([id number]) on 12/09/2018 at 58 Years. Comments: 01/28/2019 9:12 EDT - Nicole Calvo Right knee Joint replacement ([id number]) on 09/09/2018 at 58 Years. Comments: 01/28/2019 9:12 EDT - Nicole Calvo left knee Bone density scan ([id number]) on 04/15/2018 at 57 Years. Arthroscopy of knee ([id number]) on 10/16/2017 at 57 Years. Mammogram ([id number]) on 12/06/2015 at 55 Years. Hysterectomy ([id number]). Cholecystectomy (09018423). section ([id number]). Comments: 02/14/2017 22:25 EDT - Gracie Eddy 1992 Tumor ([id number]). Comments: 06/27/2017 13:24 Frida Evans RN per patient to the right rib 02/14/2017 22:25 EDT - Gracie Eddy removal Arthroscopy of knee ([id number]). Comments: 06/27/2017 13:24 Frida Evans RN left knee, Reviewed as documented in chart. Family history: Patient was adopted. Alcohol user Mother Diabetes mellitus type II Father Heart attack Father Substance user Mother , Reviewed as documented in em (more content not included)... [facility] ED Note-Nursingon 11-20-2023 ED Note-Nursing Pt brought to ED RM 4 C/O a fall, Pt hit her head and check on the left side on a wood post, no loss of consciousness. Pt left knee is swollen , deformed. Pt stated I had two knee replacement in this knee, the last one was [address] [facility]. Pt recieved 50 of fetynal IM in EMS. Pt stated it really took the pain away Pulses are bounding in the Paula pedal and post tib. Pt is A/Ox4. call light within reach. Son is at bedside [facility] ED Patient Summaryon 024 ED Patient Summary [facility] - Emergency Department [address] [place], [place] [id number] PATIENT DISCHARGE INSTRUCTIONS Patient Information Name: ANJU PISANO Age: 63 Years Date of : 1960 Reason For Visit: Closed head injury without LOC; Knee pain-swelling; Fall; FALL/KNEE PAIN Arrival Time: 11/20/2023 18:12:43 Primary Care Physician: Maurizio Penny DO Attending Physician: Livan Andrade MD Comment: Visit Diagnosis: Diagnoses This Visit Closed head injury without LOC ([id number]) Contusion of knee, left (S80.02XA) Fall ([id number] 0EC6) Fall on same level from tripping (W01.0XXA) Forehead contusion (S00.83XA) Knee pain-swelling ([id number] 2AE8) The Pharmacy at [facility] is open Sunday through Sunday from 9A to 6P and Sunday and Sunday from 9A to 5P Prescription Information: If you have been given a prescription for narcotics, seek immediate medical attention if you have any difficulty breathing or any sudden status changes such as confusion and sleepiness. If you or anyone you know is experiencing suicidal thoughts, mental health, alcohol and/or drug addiction problems; contact the [facility] 01/01 Crisis Hotline -Text 0UILS dp 181603. If you received any narcotics, sedation, or any other medication that causes drowsiness for the next 24 hours, unless otherwise directed: ? Do not drive a car. ? Do not operate machinery such as power tools, lawn mowers, drills, sewing machines, or stoves ? Avoid alcoholic beverages and drugs for allergies, nerves, or sleep ? Do not make important personal or business decisions or sign any legal documents With: Address: When: Maurizio Penny [address] [place] [address] Business (1) Within 3 to 5 days Comments: Reviewed discharge care instruction. Continue with therapy as outlined by Dr. Andrade. Use immobilizer and Derek wrap for support. May use cane, walker or crutches to help reduce weightbearing. Increase activity as tolerated. May apply cold compress, 20 minutes every 2-3 hours for pain and swelling. Elevate leg when possible. Take Eunice as needed for severe pain Contact your family doctor or PCP within the recommended time. Return to ER for any worsening symptoms especially any symptom that concerns you. You have been given a prescription for opioid-based pain medication. Take the pain medication only as prescribed. Do not use any alcohol with the pain medication. Do not drive or operate vehicle as pain medication may cause drowsiness. You should take Metamucil, Citrucel for something similar twice daily with plenty of fluids to prevent constipation from using pain medication. Try to minimize use of opiate pain medication as frequent use may increase risk of dependency or addiction. Medication Information: The exam and treatment you received today in the [facility] Emergency Department were for an urgent problem and are not intended as complete care. It is important for you to follow up with a doctor, nurse practitioner, or physician?s nursing home assistant administrator for ongoing care. If your symptoms become worse or you do not improve as expected and you are unable to reach your usual health care provider, you should return to the Emergency Department, we are available 24 hours a day. For those patients who have received Radiology results, the interpretation of your X-ray as given to you by our Emergency Department physician is only a preliminary report. The Radiologist will review your films and if there is a change in the diagnosis you will be notified by phone. Please make sure you have provided a working phone number so we can reach you if necessary. In the event that you had a lab culture while you were a patient in the Emergency Department, you will be notified by phone if there is a need to change your antibiotic. Please make sure you have provided a working phone number so we can reach you if necessary. [facility] Emergency Department has provided you with a complete list of medications post discharge. Please inform your home health nurse licensed practical/provider of your visit and for further instruction on these medications. Any specific questions regarding your chronic medications and dosages should be discussed with your primary care physician(s) and/or pharmacist. New Medications [facility] [id number] [place], [place] [id number], [phone] acetaminophen-hydrocodone (acetaminophen-hydrocodone 325 mg-5 mg oral tablet) 1 tab(s) Oral (given by mouth) 3 times per day as needed as needed for pain for 2 Days. Refills: 0. Medications to Continue That Have Not Changed Other Medications ascorbic acid (Vitamin C 500 mg oral tablet) 1 tab(s) Oral (given by mouth) every day. calcium carbonate (calcium (as carbonate) 600 mg oral table (more content not included)... [facility] Progress Note - Nurseon 11-09 Progress Note - Nurse Derek wrap and knee immobilizer applied to L knee. Pt states understanding of use of both devices. Pt also states she has crutches, cane, and walker at home if needed. Pt educated on RICE therapy. Pt taken out of ER via wheelchair for ease Pt denies any questions or other concerns at this time. [Electronically Signed on: 11/20/2023 20:10 EDT] Jaylyn Bishop RN [Verified on: 11/20/2023 20:10 EDT] Jaylyn Bishop RN [facility] XR Knee Complete Lefton 11-09 XR Knee Complete Left EXAM: XR Knee Complete Left REASON FOR EXAM: Female, 63 years, pain, injury. TECHNIQUE: 4 views of the knee are performed. COMPARISON: 03/25/2020 FINDINGS: Postoperative changes are seen of total knee arthroplasty, with interval placement of distal femoral and proximal tibial stems compared to the prior study. No acute fracture is seen. No elbow effusion. IMPRESSION: Postoperative changes. No acute bony abnormality. Final Dictated by: Uriel Gonzalez DO Dictated DT/TM: 11/20/23 8:04 Signed (Electronic Signature): Uriel Gonzalez DO 11/20/23 8:07 pm Technologist: Rosemary GAMINO [facility] COMPLETE BLOOD COUNTon 10-09 Erythrocyte distribution width (RBC) [Ratio] 13.1 % Normal 11.5-15.0 [facility] Comment on above: Performed By: #### CMP, 35230-0, CBC, 24 331-1, THYR #### [facility] ([id number]) [address], [address] [place] [address] Hematocrit (Bld) [Volume fraction] 40.9 % Normal 35-47 [facility] Comment on above: Performed By: #### CMP, 69808-2, CBC, -, THYR #### [facility] ([id number]) [address], [address] [place] [address] Hemoglobin (Bld) [Mass/Vol] 14.1 g/dL Normal 11.7-15.5 [facility] Comment on above: Performed By: #### CMP, 42628-7, CBC, -, THYR #### [facility] ([id number]) [address], [address] [place] [address] MCH (RBC) [Entitic mass] 28.8 pg Normal 27-34 [facility] Comment on above: Performed By: #### CMP, 06768-9, CBC, -, THYR #### [facility] ([id number]) [address], [address] [place] [address] MCHC (RBC) [Mass/Vol] 34.4 g/dL Normal 32-36 [facility] Comment on above: Performed By: #### CMP, 93190-3, CBC, -, THYR #### [facility] ([id number]) [address], [address] [place] [address] MCV (RBC) [Entitic vol] 84 fL Normal 80-100 [facility] Comment on above: Performed By: #### CMP, 13378-1, CBC, -, THYR #### [facility] ([id number]) [address], [address] [place] [address] Platelet mean volume (Bld) [Entitic vol] 7.5 fL Normal 7-12 [facility] Comment on above: Performed By: #### CMP, 85418-2, CBC, 24 331-1, THYR #### [facility] ([id number]) [address] [address] [place] [address] Platelets (Bld) [#/Vol] 315 10*3/uL Normal 150-450 [facility] Comment on above: Performed By: #### CMP, 63420-3, CBC, 24 331-1, THYR #### [facility] ([id number]) [address], [facility] [address] [place] [address] RBC COUNT 4.88 X10E12/L Normal 3.80-5.20 [facility] Comment on above: Performed By: #### CMP, 07763-0, CBC, 24 331-1, THYR #### [facility] ([id number]) [address] [address] WBC (Bld) [#/Vol] 10.4 10*3/uL Normal 4.0-11.0 [facility] Comment on above: Performed By: #### CMP, 48591-9, CBC, 24 331-1, THYR #### [facility] ([id number]) [address] [facility] [address] [place] [address] COMPREHENSIVE METABOLIC PANE Malcom 10-10-2023 Albumin [Mass/Vol] 4.7 g/dL Normal 3.2-5.3 [facility] Comment on above: Performed By: #### CMP, 32770-2, CBC, 24 331-1, THYR #### [facility] ([id number]) [address] [address] [place] [address] ALP [Catalytic activity/Vol] 95 U/L Normal 39-130 [facility] Comment on above: Performed By: #### CMP, 39562-6, CBC, 24 331-1, THYR #### [facility] ([id number]) [address], [address] [place] [address] ALT [Catalytic activity/Vol] 14 U/L Normal 0-31 [facility] Comment on above: Performed By: #### CMP, 20157-2, CBC, 24 331-1, THYR #### [facility] ([id number]) [address], [address] [place] [address] Anion gap [Moles/Vol] 9 mmol/L Normal 5-15 [facility] Comment on above: Performed By: #### CMP, 23812-7, CBC, 24 331-1, THYR #### [facility] ([id number]) [address], [address] [place] [address] AST [Catalytic activity/Vol] 16 U/L Normal 0-41 [facility] Comment on above: Performed By: #### CMP, 09393-3, CBC, 24 331-1, THYR #### [facility] ([id number]) [address], [address] [place] [address] Bilirubin [Mass/Vol] 0.8 mg/dL Normal 0.3-1.2 [facility] Comment on above: Performed By: #### CMP, 00385-4, CBC, 24 331-1, THYR #### [facility] ([id number]) [address], [address] [place] [address] Calcium [Mass/Vol] 9.9 mg/dL Normal 8.5-10.5 [facility] Comment on above: Performed By: #### CMP, 92949-6, CBC, 24 331-1, THYR #### [facility] ([id number]) [address], [address] [place] [address] Chloride [Moles/Vol] 106 mmol/L Normal 98-109 [facility] Comment on above: Performed By: #### CMP, 95308-4, CBC, 24 331-1, THYR #### [facility] ([id number]) [address] [address] [place] [address] CO2 [Moles/Vol] 28 mmol/L Normal 22-32 [facility] Comment on above: Performed By: #### DEVIN, 47533-2, CBC, 24 331-1, THYR #### [facility] ([id number]) [address] [address] [place] [address] Creatinine [Mass/Vol] 0.77 mg/dL Normal 0.40-1.00 [facility] Comment on above: Result Comment: METHOD TRACEABLE TO IDMS STANDARD Performed By: #### C GEOVANNA, 98581-8, CBC, 18750-7, THYR #### [facility] ([id number]) [address] [address] GFR/1.73 sq M.predicted among non-blacks MDRD (S/P/Bld) [Vol rate/Area] 87 mL/min/{1.73_m2} Normal >59 [facility] Comment on above: Result Comment: Reported eGFR is based on the CKD-EPI 2020 equation that does not use a race coefficient. Performed By: #### C GEOVANNA, 21258-9, CBC, 10994-3, THYR #### [facility] ([id number]) [address] [address] Glucose [Mass/Vol] 101 mg/dL High 65-99 [facility] Comment on above: Performed By: #### DEVIN, 43785-5, CBC, 24 331-1, THYR #### [facility] ([id number]) [address] [address] [place] [address] Potassium [Moles/Vol] 3.6 mmol/L Normal 3.5-5.0 [facility] Comment on above: Performed By: #### DEVIN, 50059-7, CBC, 24 331-1, THYR #### [facility] ([id number]) [address] [address] [place] [address] Protein [Mass/Vol] 7.1 g/dL Normal 6.0-8.0 [facility] Comment on above: Performed By: #### DEVIN, 04414-6, CBC, 24 331-1, THYR #### [facility] ([id number]) [address] [address] [place] [address] Sodium [Moles/Vol] 143 mmol/L Normal 134-146 [facility] Comment on above: Performed By: #### DEVIN, 44835-0, CBC, 24 331-1, THYR #### [facility] ([id number]) [address] [address] Urea nitrogen [Mass/Vol] 12 mg/dL Normal 5-27 [facility] Comment on above: Performed By: #### DEVIN, 63901-0, CBC, 24 331-1, THYR #### [facility] ([id number]) [address] [address] Lipid 1996 panelon 4 Cholesterol [Mass/Vol] 151 mg/dL Normal 150-200 [facility] Comment on above: Performed By: #### DEVIN, 10478-1, CBC, 24 331-1, THYR #### [facility] ([id number]) [address] [address] Cholesterol in HDL [Mass/Vol] 42 mg/dL Normal >39 [facility] Comment on above: Result Comment: HDL <40 mg/dL - High Risk HDL > or = 40mg/dL- Desirable HDL >60 mg/dL - Negative Risk Performed By: #### C MP, 90329-3, CBC, 93848-7, THYR #### [facility] ([id number]) [address], [address] [place] [address] Cholesterol in LDL [Mass/Vol] 65 mg/dL Normal <130 [facility] Comment on above: Result Comment: LDL <100 mg/dL - Desirable LDL >160 mg/dL - High Risk Performed By: #### C MP, 19016-9, CBC, 00352-9, THYR #### [facility] ([id number]) [address], [address] [place] [address] Cholesterol in VLDL [Mass/Vol] 44 mg/dL High 0-30 [facility] Comment on above: Performed By: #### CMP, 51488-9, CBC, 24 331-1, THYR #### [facility] ([id number]) [address], [address] [place] [address] CHOLESTEROL:HDL 3.6 Normal 1.0-5.0 [facility] Comment on above: Performed By: #### CMP, 83642-3, CBC, 24 331-1, THYR #### [facility] ([id number]) [address], [address] [place] [address] Triglyceride [Mass/Vol] 220 mg/dL High 27-150 [facility] Comment on above: Performed By: #### CMP, 04030-4, CBC, 24 331-1, THYR #### [facility] ([id number]) [address], [facility] [address] [place] [address] Office Visiton 10-10-2023 Follow-up visit [id number] Anju Pisano 1960 F Date Provider Department Center 10/10/2023 [id number] [facility] No family history on file Level of Service:32923 CO OFFICE/OUTPATIENT NEW LOW MDM 30 MINUTES Reason for Visit and Comments: New Patient [Other] - DM2 States had A1C done 3 wks ago at PCP with Katja Sidhu NP Mae, 5.5% per pt Has meter, unsure what its called & did not bring today, states between 99-104 for sugar recently Concerns: MetFormin started off with 3x daily, now BID but is having more diarrhea, no just one daily. Symptoms better but wants to know if can be switched off of metformin to different medication Normal [facility] THYROID PROFILEon 10-10-2023 Free T4 [Mass/Vol] 0.60 ng/dL Low 0.61-1.60 [facility] Comment on above: Performed By: #### CMP, 68462-7, CBC, 24 331-1, THYR #### [facility] ([id number]) [address], [address] [place] [address] TSH 3.07 uIU/mL Normal 0.49-4.67 [facility] Comment on above: Performed By: #### CMP, 91557-7, CBC, 24 331-1, THYR #### [facility] ([id number]) [address], [address] [place] [address] Vitamin D+Metabolites [Mass/ Vol]on 10-10-2023 VITAMIN D 25 HYD TOT 67.1 ng/mL Normal 30-100 [facility] Comment on above: Result Comment: Vitamin D status 25 [place] Vitamin D Deficiency <20 ng/mL Insufficiency 20-29 ng/mL Sufficiency 30-100 ng/mL Toxicity >100 ng/mL NOTE: A pediatric reference range has not been established by the supervisor detasseling crew of this kit. The [place] [employer] recommends a Vitamin D level of = or >20ng/mL in infants and children. Performed By: #### C MP, 55591-4, CBC, 64862-7, THYR #### [facility] ([id number]) [address], [address] [place] [address] MG MAMM ASIF DIAG FUon 2021 MG MAMM ASIF DIAG FU Patient: ANJU PISANO Exam Date: 02/24/2022 : 1960 Gender:F Ordering : JOSE D CALDERON Admission #: [id number] Family : Order #: [id number] CLICK HERE TO VIEW EXAM RADIOLOGY REPORT PROCEDURE: MAMMOGRAM BILATERAL DIGANOSTIC DIGITAL FOLLOW UP, 02/24/2022, 09:08 ULTRASOUND BREAST BILATERAL LIMITED, 02/24/2022, 09:46 COMPARISON: MG MAMM SCREEN 3D ASIF CAD, 01/04/2022. INDICATIONS: Mammography abnormal Calculator Name NCI Breast Cancer Risk Assessment Tool 5 Year Breast Cancer Risk 2.00% Lifetime Breast Cancer Risk 10.00% Personal Breast Cancer No Personal Ovarian Cancer No Treatments None Family Cancers None LOCATION: [facility] BREAST COMPOSITION: Scattered areas fibroglandular density. FINDINGS: DIAGNOSTIC CATEGORY 3--PROBABLY BENIGN FINDING. THE FOLLOWING FINDING(S) HAS A HIGH PROBABILITY OF A BENIGN ETIOLOGY: Bilateral diagnostic mammogram with twelve spot compression views demonstrate multiple subcentimeter well-circumscribed nodules as well as scattered areas of microcalcification. Ultrasound demonstrates multiple subcentimeter simple cysts with a complex cyst and possible punctate calcifications 7 o'clock position of the right breast measuring 5.6 mm In light of bilateral, multiple nodules without comparison exam, a six-month follow-up mammogram and ultrasound is recommended for further evaluation RECOMMENDATIONS: SHORT TERM FOLLOW-UP DIAGNOSTIC MAMMOGRAM BILATERAL BREASTS IN 6 MONTHS. SHORT TERM FOLLOW-UP ULTRASOUND BILATERAL BREASTS IN 6 MONTHS. PLEASE NOTE: A NORMAL MAMMOGRAM DOES NOT EXCLUDE THE POSSIBILITY OF BREAST CANCER. A CLINICALLY SUSPICIOUS PALPABLE LUMP SHOULD BE BIOPSIED. Dictated by: Darren Alarcon MD on 02/24/2022 at 10:35 Approved by: Darren Alarcon MD on 02/24/2022 at 10:38 Normal [facility] US BREAST ASIF LIMITEDon 02-09 US BREAST ASIF LIMITED Patient: ANJU PISANO Exam Date: 02/24/2022 : 1960 Gender:F Ordering : JOSE D CALDERON Admission #: [id number] Family : Order #: [id number] CLICK HERE TO VIEW EXAM RADIOLOGY REPORT PROCEDURE: MAMMOGRAM BILATERAL DIGANOSTIC DIGITAL FOLLOW UP, 02/24/2022, 09:08 ULTRASOUND BREAST BILATERAL LIMITED, 02/24/2022, 09:46 COMPARISON: MG MAMM SCREEN 3D ASIF CAD, 01/04/2022. INDICATIONS: Mammography abnormal Calculator Name NCI Breast Cancer Risk Assessment Tool 5 Year Breast Cancer Risk 2.00% Lifetime Breast Cancer Risk 10.00% Personal Breast Cancer No Personal Ovarian Cancer No Treatments None Family Cancers None LOCATION: [facility] BREAST COMPOSITION: Scattered areas fibroglandular density. FINDINGS: DIAGNOSTIC CATEGORY 3--PROBABLY BENIGN FINDING. THE FOLLOWING FINDING(S) HAS A HIGH PROBABILITY OF A BENIGN ETIOLOGY: Bilateral diagnostic mammogram with twelve spot compression views demonstrate multiple subcentimeter well-circumscribed nodules as well as scattered areas of microcalcification. Ultrasound demonstrates multiple subcentimeter simple cysts with a complex cyst and possible punctate calcifications 7 o'clock position of the right breast measuring 5.6 mm In light of bilateral, multiple nodules without comparison exam, a six-month follow-up mammogram and ultrasound is recommended for further evaluation RECOMMENDATIONS: SHORT TERM FOLLOW-UP DIAGNOSTIC MAMMOGRAM BILATERAL BREASTS IN 6 MONTHS. SHORT TERM FOLLOW-UP ULTRASOUND BILATERAL BREASTS IN 6 MONTHS. PLEASE NOTE: A NORMAL MAMMOGRAM DOES NOT EXCLUDE THE POSSIBILITY OF BREAST CANCER. A CLINICALLY SUSPICIOUS PALPABLE LUMP SHOULD BE BIOPSIED. Dictated by: Darren Alarcno MD on 02/24/2022 at 10:35 Approved by: Darren Alarcon MD on 02/24/2022 at 10:38 Normal [facility] XR DEXA BONE DENSITYon 02-24 XR DEXA BONE DENSITY EXAMINATION: XR DEXA BONE DENSITY, 02/24/2022 8:59 AM EDT HISTORY: Screening for osteoporosis COMPARISON: None. TECHNIQUE: Dual-energy X-ray absorptiometry (DEXA) bone density study performed for the axial skeleton. FINDINGS: Bone mineral density AP spine L1-L4 measures 1.270 g/sq cm. T score 0.8. WHO classification: Normal Lowest bone mineral density right femoral neck measures 0.999 g/sq cm. T score -0.3. WHO classification: Normal IMPRESSION: Normal bone mineral density. Low fracture risk Electronically authenticated by: DARREN ALARCON Date: 2022-02-24 16:14 Normal [facility] MG MAMM SCREEN 3D ASIF CADon 01-04-2022 MG MAMM SCREEN 3D ASIF CAD Patient: ANJU PISANO Exam Date: 01/04/2022 : 1960 Gender:F Ordering : JOSE D CALDERON Admission #: [id number] Family : Order #: [id number] CLICK HERE TO VIEW EXAM RADIOLOGY REPORT PROCEDURE: MAMMOGRAM SCREENING 3D BILATERAL CAD COMPARISON: None. INDICATIONS: Screening for malignant neoplasm of breast Calculator Name NCI Breast Cancer Risk Assessment Tool 5 Year Breast Cancer Risk 2.00% Lifetime Breast Cancer Risk 10.00% Personal Breast Cancer No Personal Ovarian Cancer No Treatments None Family Cancers None LOCATION: [facility] BREAST COMPOSITION: Scattered areas fibroglandular density. FINDINGS: DIAGNOSTIC CATEGORY 0--INCOMPLETE: NEED ADDITIONAL IMAGING EVALUATION. RIGHT BREAST: Multiple small nodules scattered throughout the breast. Correlation with mammograms from an outside institution if available is recommended. Otherwise four-quadrant spot compression views and 4 quadrant ultrasound evaluation is recommended. LEFT BREAST: Multiple small nodules scattered throughout the breast. Correlation with mammograms from an outside institution of available is a recommended. Otherwise 4 quadrant spot compression views and 4 quadrant ultrasound evaluation is recommended. RECOMMENDATIONS: ADDITIONAL MAMMOGRAPHIC VIEWS REQUIRED: BILATERAL BREASTS - RIGHT CRANIOCAUDAL SPOT MAGNIFICATION VIEW - RIGHT OBLIQUE SPOT MAGNIFICATION VIEW - LEFT CRANIOCAUDAL SPOT MAGNIFICATION VIEW - LEFT OBLIQUE SPOT MAGNIFICATION VIEW - ULTRASOUND: BILATERAL BREASTS PLEASE NOTE: A NORMAL MAMMOGRAM DOES NOT EXCLUDE THE POSSIBILITY OF BREAST CANCER. A CLINICALLY SUSPICIOUS PALPABLE LUMP SHOULD BE BIOPSIED. Dictated by: Maurizio Mcdonald M.D. on 01/05/2022 at 15:55 Approved by: Maurizio Mcdonald M.D. on 01/05/2022 at 16:00 Normal [facility] Initial Visit (Orthopaedic S urgery)on 10-29-2020 Initial Visit (Orthopaedic Surgery) Diagnoses/Problems Assessed Pain due to total knee replacement, initial encounter (996.77,V43.65,338.18) (T84.84XA,Z96.659) Chief Complaint BILATERAL KNEE PAIN NPV History of Present Illness Patient is a 59-year-old female who presents today for evaluation of pain in both of her knees since approximately 2 years ago. She has a remote history of bilateral total knee replacements. Standing too long or walking too long makes it worse. She rates her pain is 7 out of 10. She seen a chiropractor as well as pain management. She had her left knee replaced in 1998 as well as her right knee. She did not have any problems with in regards to wound healing or infection. She presents today for further evaluation. Adult patient history sheet was filled out by the patient today in clinic and will be scanned into the EMR. This includes Past Medical History, Past Surgical History, Medications, Allergies, Social History, Family History and 30 point review of systems. Awake alert and oriented x3, no acute distress, appears her stated age, walks with a mild antalgic gait Bilateral knees: Range of motion from 0-110 degrees Stable to varus/valgus/anterior/posterior stress through out the range of motion No joint line tenderness to palpation No effusion SILT in a shena/saph/per/tib distribution 5/5 knee extension/df/pf/ehl dorsalis pedis and posterior tibial pulse no popliteal lymphadenopathy no other overlying lesions mood: euthymic Respirations non labored Plain films were reviewed by myself in clinic today. She has cemented posterior substituting total knee replacements in place with no signs of loosening or failure. Alignment appears adequate. We discussed her today for reasons for pain and need for further surgery after total knee arthroplasty. Her exam and x-rays look good. We discussed a quad strengthening program. She can take anti-inflammatories. She does not require anything surgical at this time. All of her questions were answered. This note was created using voice recognition software and was not corrected for typographical or grammatical errors.. Active Problems Problems Acute knee pain (719.46) (M25.569) Arthritis of knee (716.96) (M17.10) Arthritis of knee, left (716.96) (M17.12) Arthritis of knee, right (716.96) (M17.11) Arthropathy (716.90) (M12.9) Chronic knee pain (719.46,338.29) (M25.569,G89.29) Osteoarthritis of both knees (715.96) (M17.0) S/P arthroscopic partial medial meniscectomy (V45.89) (Z98.890) Past Medical History Problems History of hypertension (V12.59) (Z86.79) Surgical History Problems History of Section History of Gallbladder Surgery History of Hysterectomy History of Knee Surgery Family History Mother No pertinent family history Father No pertinent family history Social History Problems Never a smoker No alcohol use No caffeine use Non-smoker (V49.89) (Z78.9) Allergies No Known Drug Allergies Recorded By: Alla James; 12/11/2017 2:26:46 PM Current Meds Medication NameInstruction [place] Thyroid 60 MG Oral Tablet DULoxetine HCl - 60 MG Oral Capsule Delayed Release ParticlesTAKE ONE CAPSULE BY MOUTH EVERY DAY Ibuprofen 800 MG Oral Tablettake 1 tablet by mouth every 6 to 8 hours if needed for MODERATE pain Lidocaine 5 % External PatchAPPLY 1 PATCH TO THE AFFECTED AREA AND LEAVE IN PLACE FOR 12 HOURS, THEN REMOVE AND LEAVE OFF FOR 12 HOURS. Losartan Potassium 25 MG Oral Tablet Meloxicam 15 MG Oral TabletTAKE 1 TABLET BY MOUTH EVERY DAY methylPREDNISolone 4 MG Oral Tablet Therapy Packas directed oxyCODONE-Acetaminophen 5-325 MG Oral Tablettake 1 tablet by mouth every 6 hours if needed for SEVERE pain predniSONE 10 MG Oral Tablettake 1 tablet by mouth four times a day for 3 days then 1 tablet ... Vitamin D (Ergocalciferol) 1.25 MG (36845 UT) Oral Capsule Signatures Electronically signed by : Maurizio Kaplan MD; Nov 02 2020 5:14PM EST (Author) Normal [facility] KNEE , 1 OR 2 VIEWSon 2020 KNEE , 1 OR 2 VIEWS Patient Name: ANJU PISANO STUDY: KNEE; 1 OR 2 VIEWS; 10/29/2020 11:34 am INDICATION: BILATERAL KNEE PAIN. COMPARISON: 12/11/2017 ACCESSION NUMBER(S): [id number] ORDERING CLINICIAN: MAURIZIO KAPLAN FINDINGS: Bilateral knees, three views of each Bilateral total knee arthroplasties. No periprosthetic fracture or lucency seen. Small effusions bilaterally. No dislocation. IMPRESSION: No hardware failure about bilateral total knee arthroplasty Electronically signed by: JEAN MICHEL MD Normal [facility] KNEE , 1 OR 2 VIEWS Patient Name: ANJU PISANO STUDY: KNEE; 1 OR 2 VIEWS; 10/29/2020 11:34 am INDICATION: BILATERAL KNEE PAIN. COMPARISON: 12/11/2017 ACCESSION NUMBER(S): [id number] ORDERING CLINICIAN: MAURIZIO KAPLAN FINDINGS: Bilateral knees, three views of each Bilateral total knee arthroplasties. No periprosthetic fracture or lucency seen. Small effusions bilaterally. No dislocation. IMPRESSION: No hardware failure about bilateral total knee arthroplasty Electronically signed by: JEAN MICHEL MD Normal [facility] AFINION A1Con 05-13-2019 HbA1c (Bld) [Mass fraction] 6.3 G/DL High 4.5-6.0 [facility] Comment on above: Performed By: #### 750, 4500, 4510, 4520 #### [facility] Unless Otherwise Noted [address] [address] / COLA #4724/CLIA # [id number] FT3on 05-13-2019 FT3 4.60 pg/mL Normal 2.71-6.16 [facility] Comment on above: Performed By: #### 750, 4500, 4510, 4520 #### [facility] Unless Otherwise Noted [address] [address] / COLA #4724/CLIA # [id number] FT4on 05-13-2019 Free T4 [Mass/Vol] 0.84 ng/dL Normal 0.64-1.79 [facility] Comment on above: Performed By: #### 750, 4500, 4510, 4520 #### [facility] Unless Otherwise Noted [address] [address] / COLA #4724/CLIA # [id number] TSHon 05-13-2019 TSH Qn 3.16 uIU/ml Normal 0.47-4.68 [facility] Comment on above: Performed By: #### 750, 4500, 4510, 4520 #### [facility] Unless Otherwise Noted [address] [address] / COLMegan #2624/CLIA # [id number] History and Physical - Surgi renny Update < 30 dayson 06-05-2018 History and Physical - Surgical Update < 30 days History & Physical Reviewed:/Lactating: Are You no (1) Are You Currently Breastfeedingno (1) I have reviewed the History and Physical dated: [id number] and Physical reviewed and relevant findings noted. Patient examined toreview pertinent physical findings.: No significant changesHome Medications Reviewed: no changes notedAllergies Reviewed: no changes notedThis patient has been seen and discussed with the attending physicianresponsible for performing the procedure: yes Signatures/Attestation/Certificat ion:Attending Provider Inpatient Certification StatementN/A - observationpatient/other outpatient visits Electronic Signatures:Ozzie Robert (Fellow)) (Signed 05-Jun-2018 09:54)Authored: History & Physical ReviewedJd Timmons) (Signed 05-Jun-2018 10:27)Authored: Signatures/Attestation/Certificat ionCo-Signer: History & Physical Reviewed Last Updated: 05-Jun-2018 10:27 by Jd Timmons) References:1. Data Referenced From Patient Profile - Preop v2 06/05/2018 07:50 AM Normal [facility] Homegoing Instructionson Homegoing Instructions Additional Instructions:Medication Information: Medication InstructionsThere were no changes to your routine home medications from this visit.Continue to follow your current regimen. Do not drive or operate machinery iftaking narcotic pain medication. Take as directed. Appointments: Service/Clinician NameCall [phone] to schedule your 2-4 week follow upappointment. Belongings Returned: Valuables/Medications/Belongings Returnedyes Electronic Signatures:Tequila Torres (RN) (Signed 05-Jun-2018 10:48)Authored: Additional InstructionsKarina Godinez (THREAD CUTTER-PLATER SUPERVISOR) (Signed 05-Jun-2018 08:37)Authored: Additional Instructions Last Updated: 05-Jun-2018 10:48 by Tequila Torres) Normal [facility] OPERATIVE REPORTon 8 OPERATIVE REPORT [place] [id number] [place] [id number] Patient Name: RITO PISANO: [id number]: 1960Encounter Number: [id number] of Service: 06/05/2018Patient Location: AOR AOR0 [id number] Type: OSurgeon: Jd Timmons, MDReport Type: Operative ReportsPREOPERATIVE DIAGNOSIS: Bilateral knee osteoarthritis.POSTOPERATIVE DIAGNOSIS: Bilateral knee osteoarthritis.OPERATION/PROCEDUR E: Bilateral genicular nerve block.ANESTHESIA: Local with IV sedation.SURGEON: Dr. Jd Timmons.CASH POSTING REPRESENTATIVE(S): Dr. Ozzie ParikhCOMPLICATIONS: Apparently none.LOCATION: [facility].PROCEDURE NOTE: The patient was identified in the holding area, benefits, side effects, alternatives of the treatment were explained to the patient. Informed consent was obtained. A peripheral IV line was started in the upper extremity, and the patient was taken to the fluoroscopy suite and was placed in the supine position. Afterwards, bilateral knees were prepped and draped in the usual sterile fashion. Using the solution of 0.5% lidocaine and bicarbonate, the skin and subcutaneous tissue of the insertion of the needles were anesthetized. Afterwards, spinal needles were advanced under fluoroscopy guidance. The 3 locations on each site superomedial and superolateral and inferomedial sides. The needle position were confirmed bilaterally in the lateral position. Afterwards, a solution containing 9 mL of 0.5% ropivacaine were injected in divided doses to each needle tip. Then, the needles were removed and Band-Aids were applied. The patient tolerated the procedure well. The patient was advised to call us in 1 or 2 days and report the progression of the symptoms.Ozzie Parikh MD for Jd Timmons, MDDD: 06/05/2018 12:35 PM ESTTT: 06/06/2018 04:46 AM ESTDICTATION NUMBER: [id number] JOB NUMBER: [id number]:Maurizio Perry MDElectronically Signed by Dr. Jd Timmons 06/12/2018 01:25:04 PM Normal [facility] Patient Profile - Preop v2on 06-05-2018 Protein mass conc Profile:Initial Info:How to be AddressedLyndaSpoken Language PreferredEnglishSource of InformationpatientAre you currently using the Personal Electronic Health Record or MYCAREnoAre you interested in learning more about [facility] for the management of yourhealthnot at this timeStated Reason for AdmissionBilateral Knee InjectionsPrimary Contact Name and NumberJeff HusbandLimitations on Visitors/Phone CallsnonePatient Belongingsremains with patientMedications Brought to Hospitalno General Health:Weight in kg98.4 kilogram(s)Weight in url325 pound(s)Weight MethodstatedHeight in cm154.9 centimeter(s)Height in feet5 feetHeight in inches1 inch(es)Height MethodstatedBMI (kg/m2)41.01 square meterPatient or Family Member Reaction to Anesthesiano previous reactionBlood Avoidance/RestrictionsnonePreviou s Transfusion Reactionno Health Mgmt:Symptoms/Conditions Managed at HomecardiovascularAre You Currently BreastfeedingnoCardiovascular Symptoms/ConditionshypertensionAr e You noBarriers to Managing Healthnone Relationship/Environ:Lives Withspouse; dependent child(vinny)Living ArrangementshouseResource/Environ mental ConcernsnoneAnticipated Transition TohomeServices Anticipated at Transitionnone Substance:Current or Former Substance Use never: Cigarette/Tobacco, e-Cigarette/Vaping,Alcohol, Street Drugs Risk Screens:Advance Directive MedicalnoAdvance Directive Information Givenpatient/family declinedDuring the past month, have you often been bothered by feeling down, depressedor hopelessyesDuring the past month, have you often had little interest or pleasure in doingthingsnoHave you had any thoughts of harming yourselfnoHave you had any thoughts of harming anyone elsenoPatient is Able to be Assessed for LearningyesFactors Influencing Readiness to Learninterest in learningFactors that Impact Ability to LearnnoneDevices/Methods Used to CommunicatenoneLearning Preferencesverbal instruction; individual instruction; writtenmaterialCultural ConsiderationsnoneDevelopmental ConsiderationsnoneReligious ConsiderationsnoneOther learner availableyes...LearnerspouseFacto rs Influencing Readiness to Learninterest in learningFactors that Impact Ability to LearnnoneDevices/Methods Used to CommunicatenoneLearning Preferencesindividual instruction, verbal instruction, writtenmaterialCultural ConsiderationsnoneDevelopmental ConsiderationsnoneReligious ConsiderationsnoneFalls RiskPatient location auto qualifies him/her for HIGH RISK.Are there any cultural, spiritual, mu-ism practices/values/needs that areimportant for us to knownoDo you want a visit/item from Pastoral CarenoWould you like your Patient Registrar/Program Management Analyst notifiednoPain Scalenumerical 0-10Pain Scale Educationteaching providedCurrent Pain Level10 = SevereAcceptable Pain Level10 = SevereExpression of Pain (nonverbal)verbalizationChronic PainyesChronic Lower Extremity pain locationknee Information Review: Allergies, Home Meds and Significant Events have been Reviewed and Verifiedwith Patient/Familyyes Allergy, Intolerance, Adverse Event: Allergies: No Known Allergies: Active Significant Events:05-Jun-2018 Gallbladder: Past Surgical History, [id number] C Section: Past Surgical History, [id number] Left Knee: Past Surgical History, [id number] 2 surgeries Right Knee: Past Surgical History, [id number]-0780 Hysterectomy: Past Surgical History, [id number] HTN: Past Medical History, Active Electronic Signatures:Tequila Torres (RN) (Signed 05-Jun-2018 08:09)Authored: Profile, Additional Information Last Updated: 05-Jun-2018 08:09 by Tequila Torres (RN) [facility] Preop Checkliston 06-05-2018 Preop Checklist Preop Checklist:Preo p Checklist: Arrival [id number] Arrival Time07:49 Procedure TypeBilateral Knee Injections NPO [id number] 22:30 ID Band Onyes Allergy Bandno known allergies H&P Completepending Anesthesia Assessment Completedpending EKG Performednot ordered Chest X-Ray Performednot ordered Chlorhexadine Bath Givennot applicable Hair Washednot applicable Soap and water bath with hair shampoo the night before surgerynot applicable SCD's Appliednot applicable Denturesnot applicable Prostheticsnot applicable Hearing Aidsnot applicable Valuables Securedsent with family Glasses / Contactsnot applicable Bowel Prepno Cardiovascular Assessment: Apicalregular Radial Pulsespalpable Pedal Pulsespalpable Extremitieswarm, well perfused Respiratory Assessment: Respirationsunlabored regular Air Exchangegood, equal Breath Soundsclear Neurological Assessment: Level of Consciousnessalert, oriented Mobilitymoves all extremities Able to Express Selfyes Age Appropriateyes Emotional Statuscalm Preop Education: Surgical Site Infection Preventionyes Pain Scales and Managementyes Language / Communication: Language / CommunicationEnglish Electronic Signatures:Tequila Torres (RN) (Signed 05-Jun-2018 08:11)Authored: Preop Checklist Last Updated: 05-Jun-2018 08:11 by Tequila Torres (RN) [facility] Vital Signs Date Time Vital Sign Value Performing Clinician Faci lity 03-25-2020 11:03-0400 BMI (Body Mass Index) 45.7 kg/m2 [facility] 03-25-2020 11:03-0400 Body Temperature 97 [degF] [facility] 03-25-2020 11:03-0400 Body weight 106.14 kg [facility] 03-25-2020 11:03-0400 Height 152.4 cm [facility] Encounters Encounter Date Encounter Type Care Provider Facility Start: 01-16-2024 End: 01-16-2024 ambulatory EROS ROGERS Not Available Start: 01-10-2024 End: 01-10-2024 ambulatory [facility] Start: 11-20-2023 End: 11-20-2023 Emergency department patient visit Maurizio Penny Facility:[facility] Start: 10-23-2023 End: 10-23-2023 ambulatory EROS ROGERS Not Available Start: 10-10-2023 End: 10-11-2023 ambulatory [facility] Start: 10-10-2023 End: 10-10-2023 ambulatory [facility] Start: 08-14-2023 Lu Burlesonaskaanalisa donovan MD Work Phone: [facility] Comment on above: Type 2 diabetes gonsalo itus without complication, without long- term current use of insulin ([facility]) Start: 01-25-2023 ambulatory QI RUGGIERO Facility:[facility] Start: 02-24-2022 End: 02-25-2022 ambulatory JOSE D CALDERON Facility:[facility] Start: 01-04-2022 End: 01-05-[address] Maurizio Mcdonald Facility: Start: 10-29-2020 Office outpatient ne w 30 minutes Maurizio Penny Work Phone: [id number] Work Phone: Start: 03-25-2020 End: 03-25-2020 Office outpatient new 30 minutes Rudi Rose Work Phone: [facility] Comment on above: History of total kne e arthroplasty, bilateral (Primary Dx); Pain due to bilateral hip joint prostheses, initial encounter Start: 03-25-2020 End: 03-25-2020 Subsequent hospital visit by physician Rudi Rose Work Phone: [facility] Start: 03-05-2019 Registered Recurring Maurizio Penny -Physical Therapy [facility] Start: 02-19-2019 End: 02-19-2019 Patient encounter procedure Maurizio Penny -[facility] Start: 01-22-2019 End: 01-22-2019 Patient encounter procedure Maurizio Penny -XRay [facility] Start: 12-16-2018 End: 12-16-2018 Emergency department patient visit Maurizio Penny -Emergency Room Start: 06-05-2018 End: 06-05-2018 Patient encounter procedure Al-Trupti Timmons Facility:[facility] Procedures Date Procedure Procedure Detail Performing Clinician Start: 02-26-2023 Microalbumin [Mass/volume] in Urine by Test strip Abdifatah Montesinos MD Work Phone: Start: 02-19-2019 X-ray of right knee Maurizio Penny Start: 01-22-2019 X-ray of right knee Maurizio Penny Start: 06-05-2018 Injection anes other peripheral nerve/branch Al-Trupti Timmons section Maurizio pimentel Work Phone: Gallbladder Surgery Maurizio Penny Work Phone: History of operative procedure on knee S/P arthroscopic partial medial meniscectomy Maurizio Penny Work Phone: Hysterectomy Maurizio goyal Work Phone: Knee Surgery Maurizio goyal Work Phone: Plan of Treatment Date Care Activity Detail Author Start: 02-27-2024 Adult BMI Screening Adult BMI Screening [facility] Start: 02-27-2024 Tobacco Screening [facility] Screening [facility] Start: 02-27-2024 Urine screening for protein Urine Microalbumin [facility] Start: 10-31-2023 End: 10-31-2023 Patient encounter procedure 10/31/2023 9:00 AM EDT Office Visit [facility] [address] [place] [address] Abdifatah Montesinos MD [address] [place] [address] [facility] Start: 09-04-2023 End: 09-04-2023 Patient encounter procedure 09/04/2023 9:30 AM EDT Office Visit [facility] [address] [place] [address] Gaby Cornell, THREAD CUTTER-PLATER SUPERVISOR [address] [place] [address] [facility] Start: 02-09-2023 COVID-19 Vaccine ( season) COVID-19 Vaccine ( season) [facility] Start: 02-09-2023 Influenza vaccination Influenza Vaccine [facility] Start: 02-10-2020 Influenza vaccination INFLUENZA VACCINE (#1) [facility] Start: 2011 Administration of varicella zoster vaccine Zoster (Shingles) Vaccine (1 of 2) [facility] Start: 2011 Colonoscopy COLORECTAL CANCER SCREENING DISCUSSION [facility] Start: 2011 Zoster vaccine hzv live for subcutaneous use ZOSTER (SHINGLES) VACCINE (1 of 2) [facility] Start: 2001 Fasting lipid profile LIPID SCREENING [facility] Start: 2001 Screening mammography MAMMOGRAM SCREENING DISCUSSION [facility] Start: 1982 Screening for malignant neoplasm of cervix CERVICAL CANCER SCREENING DISCUSSION [facility] Start: 1980 DTaP,Tdap and Td Vaccines (1 - Tdap) DTaP,Tdap and Td Vaccines (1 - Tdap) [facility] Start: 1980 Third diphtheria, tetanus and acellular pertussis (DTaP) vaccination TDAP (ADULT) [facility] Start: 1979 Adult BMI Follow Up Plan Adult BMI Follow Up Plan [facility] Start: 1979 Diabetic foot examination Diabetic Foot Exam [facility] Start: 1979 Tetanus vaccination TETANUS [facility] Start: 1974 HIV screening HIV SCREENING DISCUSSION [facility] Start: 1973 Depression Screening Depression Screening [facility] Start: 1961 Glaucoma screening Diabetic Ophthalmology Exam [facility] Start: 1961 Hepatitis C antibody, confirmatory test HEPATITIS C VIRUS SCREENING [facility] Start: 1961 TSH Qn TSH [facility] Radiography for bone length studies XR BONE LENGTH STUDY Imaging Routine History of total knee arthroplasty, bilateral 03/25/2020 11:00 AM [facility] X-ray of left knee XR KNEE LEFT 3 VIEWS Imaging Routine History of total knee arthroplasty, bilateral 03/25/2020 11:00 AM [facility] X-ray of right knee XR KNEE RIGH T 3 VIEWS Imaging Routine History of total knee arthroplasty, bilateral 03/25/2020 11:00 AM [facility] Immunizations Immunization Date Immunization Notes Care Provider Sergei flores 02-03-2023 influenza virus vaccine, unspecified formulation Abdifatah Montesinos MD Work Phone: [facility] Payers Date Payer Category Payer Unknown [id number] 2023 Unknown [id number] 2021 Unknown 2021 Unknown [id number] 2019 Unknown [employer] [id number] 2019-Present [id number] 1960 Unknown [id number] 1960 Unknown [id number] [id number] 1960 Unknown [id number] 1960 Unknown [id number] [id number] 1960 Unknown [id number] [id number] 1960 Unknown [id number] [id number] 1960 Unknown [id number] [id number] 1960 Unknown [id number] Self-pay Self Pay [id number] Unknown [id number] Unknown Self Pay [id number] Unknown [id number] Social History Date Type Detail Facility Start: 12-16-2018 End: 05-24-2022 Tobacco smoking status MNIS Ex-smoker (finding) [facility] Start: 1960 Sex Assigned At Female F [facility] Start: 03-25-2020 End: 05-24-2022 Tobacco use and exposure Never used [facility] Start: 03-25-2020 Alcohol intake Ex-drinker (finding) [facility] Start: 03-25-2020 Tobacco Comment quit 10 years ago [facility] Start: 1960 Sex Assigned At Not on file A [facility] Start: 07-22-2020 End: 02-26-2023 Never a smoker Never a smoker [facility] History of tobacco use Current smoker [facility] Start: 02-26-2023 Alcohol intake Current non-dr weight caller of alcohol (finding) [facility] Start: 07-22-2020 End: 02-26-2023 Tobacco use panel [facility] Childcare Unknown [facility] [facility] Procedure Code Equipment Code Equipment Origin al Text Equipment Identifier Dates Arthroplasty, knee, total, minimally invasive FDA Start: 09-09-2018 Arthroplasty, knee, total, minimally invasive ART SURF LT 10MM C-D 6-9 VE FDA Start: 09-09-2018 Arthroplasty, knee, total, minimally invasive ART SURF LT 10MM C-D 6-9 VE FDA Start: 09-09-2018 Arthroplasty, knee, total, minimally invasive ART SURF LT 10MM C-D 6-9 VE FDA Start: 09-09-2018 Arthroplasty, knee, total, minimally invasive ART SURF LT 10MM C-D 6-9 VE FDA Start: 09-09-2018 Arthroplasty, knee, total, minimally invasive ART SURF LT 10MM C-D 6-9 VE FDA Start: 09-09-2018 Arthroplasty, knee, total, minimally invasive ART SURF RT 11MM 6-9 C-D [place] FDA Start: 12-09-2018 Arthroplasty, knee, total, minimally invasive ART SURF RT 11MM 6-9 C-D [place] FDA Start: 12-09-2018 Arthroplasty, knee, total, minimally invasive ART SURF RT 11MM 6-9 C-D [place] FDA Start: 12-09-2018 Arthroplasty, knee, total, minimally invasive ART SURF RT 11MM 6-9 C-D [place] FDA Start: 12-09-2018 Arthroplasty, knee, total, minimally invasive ART SURF RT 11MM 6-9 C-D [place] FDA Start: 12-09-2018 Arthroplasty, knee, total, minimally invasive ART SURF RT 11MM 6-9 C-D [place] FDA Start: 12-09-2018 Arthroplasty, knee, total, minimally invasive ART SURF LT 10MM C-D 6-9 VE FDA Start: 09-09-2018 Arthroplasty, knee, total, minimally invasive ART SURF LT 10MM C-D 6-9 VE FDA Start: 09-09-2018 Arthroplasty, knee, total, minimally invasive ART SURF LT 10MM C-D 6-9 VE FDA Start: 09-09-2018 Arthroplasty, knee, total, minimally invasive ART SURF LT 10MM C-D 6-9 VE FDA Start: 09-09-2018 Arthroplasty, knee, total, minimally invasive ART SURF LT 10MM C-D 6-9 VE FDA Start: 09-09-2018 Arthroplasty, knee, total, minimally invasive ART SURF LT 10MM C-D 6-9 VE FDA Start: 09-09-2018 Arthroplasty, knee, total, minimally invasive ART SURF RT 11MM 6-9 C-D [place] FDA Start: 12-09-2018 Arthroplasty, knee, total, minimally invasive ART SURF RT 11MM 6-9 C-D [place] FDA Start: 12-09-2018 Arthroplasty, knee, total, minimally invasive ART SURF RT 11MM 6-9 C-D [place] FDA Start: 12-09-2018 Arthroplasty, knee, total, minimally invasive ART SURF RT 11MM 6-9 C-D [place] FDA Start: 12-09-2018 Arthroplasty, knee, total, minimally invasive ART SURF RT 11MM 6-9 C-D [place] FDA Start: 12-09-2018 Arthroplasty, knee, total, minimally invasive ART SURF RT 11MM 6-9 C-D [place] FDA Start: 12-09-2018 Arthroplasty, knee, total, minimally invasive ART SURF LT 10MM C-D 6-9 VE FDA Start: 09-09-2018 Arthroplasty, knee, total, minimally invasive ART SURF LT 10MM C-D 6-9 VE FDA Start: 09-09-2018 Arthroplasty, knee, total, minimally invasive ART SURF LT 10MM C-D 6-9 VE FDA Start: 09-09-2018 Arthroplasty, knee, total, minimally invasive ART SURF LT 10MM C-D 6-9 VE FDA Start: 09-09-2018 Arthroplasty, knee, total, minimally invasive ART SURF LT 10MM C-D 6-9 VE FDA Start: 09-09-2018 Arthroplasty, knee, total, minimally invasive ART SURF LT 10MM C-D 6-9 VE FDA Start: 09-09-2018 Arthroplasty, knee, total, minimally invasive ART SURF RT 11MM 6-9 C-D [place] FDA Start: 12-09-2018 Arthroplasty, knee, total, minimally invasive ART SURF RT 11MM 6-9 C-D [place] FDA Start: 12-09-2018 Arthroplasty, knee, total, minimally invasive ART SURF RT 11MM 6-9 C-D [place] FDA Start: 12-09-2018 Arthroplasty, knee, total, minimally invasive ART SURF RT 11MM 6-9 C-D [place] FDA Start: 12-09-2018 Arthroplasty, knee, total, minimally invasive ART SURF RT 11MM 6-9 C-D [place] FDA Start: 12-09-2018 Arthroplasty, knee, total, minimally invasive ART SURF RT 11MM 6-9 C-D [place] FDA Start: 12-09-2018 Goals Date Patient Goal Desired Activity /State Progress note 01-10-2024 Note Date & Type Note Facility 01-10-2024 Note REASON FOR VISIT: Anju Pisano is a 63 y.o. female with PMH of hypertension, hyperlipidemia, Vicente who is being seen today for follow-up evaluation of her type 2 diabetes. Interval history: Patient doing well since last visit. Compliant with 1/2 tablet of metformin daily. States glucose has been well-controlled and if it is running higher she will take a full tablet of metformin. Denies any other antihyperglycemic diabetic medication. Endorses she is trying to stay more active, cutting the lawn, increasing house hold activities. Denies other concerns. DIABETES HISTORY: Diabetes Mellitus [Type 2] Onset of diabetes(at age OR at which year?): within 5 years [ ] Family history of diabetes: If yes, who and age of diagnosis?: Complications: Known diabetic complications: none Cardiovascular risk factors: diabetes mellitus, dyslipidemia, hypertension, obesity (BMI >= 30 kg/m2), sedentary lifestyle, and smoking/ tobacco exposure Eye exam current (within one year): yes Diabetes education: [No] Seen by a certified low vision therapist (CDE) within 12 months Meal plan: [No] Seen by a forming department supervisor within 12 months [ ] Consistent carbohydrate diet [ ] Carbohydrate counting Meal size, estimated per patient: How many meals: [ 2-3 ] Biggest meal: [ ] Relative size of the meal compared to the biggest meal being 1. [ x ] Breakfast: protein shake [ x ] Lunch: salad/sanwich [ x ] Dinner: Snack [yogurt]: Drinks: water Scheduled exercise: _Type: _When: _Duration: [No] Associated HYPOglycemia Insulin regimen: N/a Compliance: N/a Blood Glucose Monitoring Results, Interpretation, Report: Indication for CGM: Evaluate for hyperglycemia and hypoglycemia Glucometer: 2 times daily Method: [Patient recall] CGM: [ ]: % Time CGM is active (target above 90): Results/Impression/Conclusion: Glucose well-controlled. Fasting glucose typically high 90s to low 100s. Denies any hypoglycemic events. Diabetes-related symptoms and information: [No] Hypoglycemia [No] Increasing urination [No] Increasing drinking/thirst [No] Weight loss [No] Recent changes in vision [No] Chest pain/pressure [No] Nausea [No] Vomiting [No] Early satiety [No] Feet numbness/pain/tingling [Yes] Patient seeing apple solutions consultant/shirt bander regularly [No] Patient seeing dentist regularly - has partials [No] Patient seeing motor and generator assembler regularly REVIEW OF SYSTEMS Review of Systems Constitutional: Negative. Eyes: Negative. Respiratory: Negative. Cardiovascular: Negative. Gastrointestinal: Negative. Endocrine: Negative. Neurological: Negative for numbness. Psychiatric/Behavioral: Negative. No past medical history on file. No past surgical history on file. Current Outpatient Medications: ascorbic acid (Vitamin C) 500 mg chewable tablet, 500 mg., Disp: , Rfl: atorvastatin (Lipitor) 10 mg tablet, Take 10 mg by mouth in the morning., Disp: , Rfl: calcium carbonate 600 mg calcium (1,500 mg) tablet, Take 600 mg by mouth., Disp: , Rfl: spww-qatjf-ILZ-mon-edzjdbp-atw 100 mg-100 mcg- 100 mg-100 mg capsule, 1,000 mg., Disp: , Rfl: dapagliflozin propanediol (Farxiga) 5 mg, Take one tablet daily by mouth, Disp: 30 tablet, Rfl: 2 DOCOSAHEXAENOIC ACID ORAL, Take by mouth., Disp: , Rfl: ergocalciferol (Vitamin D-2) 1.25 MG (62581 Units) capsule, , Disp: , Rfl: losartan (Cozaar) 100 mg tablet, 1 tab(s), PO, Daily, # 90 tab(s), 3 Refill(s), Pharmacy: [facility] [id number], TAKE ONE TABLET BY MOUTH DAILY, Disp: , Rfl: metFORMIN (Glucophage) 500 mg tablet, Take 500 mg by mouth., Disp: , Rfl: thyroid, pork, 60 mg tablet, Take 60 mg by mouth in the morning., Disp: , Rfl: zinc gluconate 50 mg tablet, Take 50 mg by mouth in the morning., Disp: , Rfl: No Known Allergies No family history on file. reports that she quit smoking about 10 years ago. Her smoking use included cigarettes. She has never used smokeless tobacco. She reports that she does not currently use alcohol. She reports current drug use. Drug: Marijuana. PHYSICAL EXAM: Vitals: 01/10/24 1142 Height: 1.549 m (5' 1 ) Wt Readings from Last 3 Encounters: 10/10/23 85.6 kg (188 lb 11.2 oz) Body mass index is 35.65 kg/m???. General appearance: Well appearing female in no apparent distress. HEENT: EOMI, oropharynx clear, mucous membranes moist. Neck: Supple Cardiac: RRR, no murmurs, rubs or gallops. Respiratory: No respiratory distress currently Extremities: No lower extremity edema. No foot deformities. Skin: No skin lesions. No lipohypertrophy at insulin injection sites. Neuro: A & O x 3. Psych: Mood and affect are appropriate. LABS: Last HbA1c: No results found for: HGBA1C A1c-5.5% -done by primary care in September 2023 5.6%-01/10/2024 ASSESSMENT/PLAN: Anju Pisano has well-controlled controlled diabetes mellitus [Type 2] complicated by none.Diagnoses and all orders for this visit: Type 2 diabetes mellitus (more content not included)... [facility] Clinical Note 11-20-2023 Note Date & Type Note Facility 11-20-2023 Note Education Materials Neurology Facial or Scalp Contusion A facial or scalp contusion is a bruise (contusion) on the face or head. Bruises happen when an injury causes bleeding under the skin. The bruise may turn blue, purple, or yellow (discoloration). Minor injuries may cause a bruise that is not painful. Some bruises are painful and swollen for a few weeks. Injuries to the face and head usually cause a lot of swelling, especially around the eyes. You may have other injuries as well, such as broken bones or cuts. What are the causes? ? An injury to the face or head from an object. ? A fall. ? A hit to the face or head area. ? Car accidents. ? Sports injuries. ? Attacks from another person (assaults). What are the signs or symptoms? ? Swelling in the area of the injury. The swelling may be in a small areas and very noticeable. ? The injured area being a different color than normal. ? Pain or soreness in the injured area. If you also have broken bones, your nose might be a different shape, you may be unable to close your mouth and you might have vision changes. How is this treated? ? Applying cold compresses to the hurt area. This is often the best treatment. ? Taking nfyu-gfl-vghggoe medicines to help take the pain away, if your doctor tells you to take them. ? If there are any cuts, these will need to be repaired as well. ? Any deeper injuries may require treatment and follow up with a specialist, such as a surgeon or medicare insurance specialist. Follow these instructions at home: Managing pain, stiffness, and swelling ? If told, put ice on the injured area. To do this: ? Put ice in a plastic bag. ? Place a towel between your skin and the bag. ? Leave the ice on for 20 minutes, 2?3 times a day. ? Take off the ice if your skin turns bright red. This is very important. If you cannot feel pain, heat, or cold, you have a greater risk of damage to the area. ? Raise the injured area above the level of your heart while you are sitting or lying down. General instructions ? Take qnfs-cfy-ykgxhfs and prescription medicines only as told by your doctor. ? Rest as told by your doctor. ? Return to your normal activities when your doctor says that it is safe. ? Do not blow your nose if you have any broken bones in your face. ? Eat soft foods if you are having jaw pain. ? Keep all follow-up visits. Contact a doctor if: ? You have trouble biting or chewing. ? Your pain or swelling gets worse. ? The bruised area gets worse. Get help right away if: ? You have very bad pain or a headache, and medicine does not help. ? You are very tired or confused. ? Your personality changes. ? You vomit. ? You have a nosebleed that does not stop. ? You see two of everything (double vision) or have blurry vision. ? You have clear fluid coming from your nose or ear, and it does not go away. ? You have problems walking or using your arms or legs. ? You feel very dizzy. Summary ? A facial or scalp contusion is a bruise on the face or head. ? Bruises happen when an injury causes bleeding under the skin. ? Minor injuries will cause a bruise that is not painful, but worse bruises can stay painful and swollen for a few weeks. ? Go to a doctor if you have problems seeing, bleeding from your face or nose, or you have trouble biting or chewing. ? Applying cold compresses to the hurt area is often the best treatment. This information is not intended to replace advice given to you by your health care provider. Make sure you discuss any questions you have with your health care provider. Document Revised: 07/04/2021 Document Reviewed: 07/04/2021 [employer] Patient Education ? 2022 [employer]. Orthopedics Knee Sprain, Adult A knee sprain is a stretch or tear in a knee ligament. Knee ligaments are tissues that connect the bones of the knee to each other. What are the causes? This condition is often caused by: ? A fall. ? An injury to the knee. What are the signs or symptoms? ? Trouble straightening or bending the leg. ? Problems with your knee, like: ? Swelling. ? Bruising. ? Tenderness or pain. ? Sudden muscle tightening (spasm). How is this treated? You may need to: ? Keep your knee still with a cast, brace, or splint. ? Put ice on the knee. This helps with pain and swelling. ? Raise your knee above the level of your heart when you are resting. This helps with pain and swelling. ? Take medicine for pain. ? Do exercises to keep your knee from being weak or stiff. ? Have surgery. This may be needed if the ligament is fully torn. Follow these instructions at home: If you have a splint or brace that can be taken off: ? Wear the splint or brace as told by your doctor. Take it off only as told by your doctor. ? Check the skin around the splint or brace every day. Tell your doctor if you see problems. ? Loosen the splint or brace if y (more content not included)... [facility] Progress note 10-10-2023 Note Date & Type Note Facility 10-10-2023 Note REASON FOR VISIT: Anju Pisano is a 63 y.o. female with PMH of hypertension, hyperlipidemia, Vicente who is being seen today in consultation at the request of self for evaluation of her type II diabetes. Patient previously seen by Dr. Montesinos. Currently taking 500 mg metformin once daily due to GI side effects. Has never been on insulin. Denies taking any other oral antihyperglycemic medications. On vitamin D supplement once monthly. DIABETES HISTORY: Diabetes Mellitus [Type 2] Onset of diabetes(at age OR at which year?): within 5 years [ ] Family history of diabetes: If yes, who and age of diagnosis?: Complications: Known diabetic complications: none Cardiovascular risk factors: diabetes mellitus, dyslipidemia, hypertension, obesity (BMI >= 30 kg/m2), sedentary lifestyle, and smoking/ tobacco exposure Eye exam current (within one year): yes Diabetes education: [No] Seen by a certified low vision therapist (CDE) within 12 months Meal plan: [No] Seen by a forming department supervisor within 12 months [ ] Consistent carbohydrate diet [ ] Carbohydrate counting Meal size, estimated per patient: How many meals: [ 2-3 ] Biggest meal: [ ] Relative size of the meal compared to the biggest meal being 1. [ ] Breakfast: [ x ] Lunch: [ x ] Dinner: Snack [No]: Drinks: water Scheduled exercise: _Type: _When: _Duration: [No] Associated HYPOglycemia Insulin regimen: N/a Compliance: N/a Blood Glucose Monitoring Results, Interpretation, Report: Indication for CGM: Evaluate for hyperglycemia and hypoglycemia Glucometer: 1 times daily Method: [Patient recall] CGM: [ ]: % Time CGM is active (target above 90): Results/Impression/Conclusion: Glucose well-controlled. Fasting glucose typically high 90s to low 100s. Denies any hypoglycemic events. Diabetes-related symptoms and information: [No] Hypoglycemia [No] Increasing urination [No] Increasing drinking/thirst [No] Weight loss [No] Recent changes in vision [No] Chest pain/pressure [No] Nausea [No] Vomiting [No] Early satiety [No] Feet numbness/pain/tingling [Yes] Patient seeing apple solutions consultant/shirt bander regularly [No] Patient seeing dentist regularly - has partials [No] Patient seeing motor and generator assembler regularly REVIEW OF SYSTEMS Review of Systems Constitutional: Negative. Eyes: Negative. Respiratory: Negative. Cardiovascular: Negative. Gastrointestinal: Negative. Endocrine: Negative. Neurological: Negative for numbness. Psychiatric/Behavioral: Negative. No past medical history on file. No past surgical history on file. Current Outpatient Medications: ascorbic acid (Vitamin C) 500 mg chewable tablet, 500 mg., Disp: , Rfl: atorvastatin (Lipitor) 10 mg tablet, Take 10 mg by mouth in the morning., Disp: , Rfl: calcium carbonate 600 mg calcium (1,500 mg) tablet, Take 600 mg by mouth., Disp: , Rfl: izcx-dtxac-QRW-cew-bdpjhzh-wgd 100 mg-100 mcg- 100 mg-100 mg capsule, 1,000 mg., Disp: , Rfl: DOCOSAHEXAENOIC ACID ORAL, Take by mouth., Disp: , Rfl: ergocalciferol (Vitamin D-2) 1.25 MG (24274 Units) capsule, , Disp: , Rfl: losartan (Cozaar) 100 mg tablet, 1 tab(s), PO, Daily, # 90 tab(s), 3 Refill(s), Pharmacy: [facility] [id number], TAKE ONE TABLET BY MOUTH DAILY, Disp: , Rfl: metFORMIN (Glucophage) 500 mg tablet, Take 500 mg by mouth., Disp: , Rfl: thyroid, pork, 60 mg tablet, Take 60 mg by mouth in the morning., Disp: , Rfl: zinc gluconate 50 mg tablet, Take 50 mg by mouth in the morning., Disp: , Rfl: No Known Allergies No family history on file. reports that she quit smoking about 10 years ago. Her smoking use included cigarettes. She has never used smokeless tobacco. She reports that she does not currently use alcohol. She reports current drug use. Drug: Marijuana. PHYSICAL EXAM: Vitals: 10/10/23 1016 BP: 122/88 BP Location: Left arm Patient Position: Sitting BP Cuff Size: Adult Pulse: 79 Resp: 16 SpO2: 94% Weight: 85.6 kg (188 lb 11.2 oz) Height: 1.549 m (5' 1 ) Wt Readings from Last 3 Encounters: 10/10/23 85.6 kg (188 lb 11.2 oz) Body mass index is 35.65 kg/m???. General appearance: Well appearing female in no apparent distress. HEENT: EOMI, oropharynx clear, mucous membranes moist. Neck: Supple Cardiac: RRR, no murmurs, rubs or gallops. Respiratory: No respiratory distress currently Extremities: No lower extremity edema. No foot deformities. Skin: No skin lesions. No lipohypertrophy at insulin injection sites. Neuro: A & O x 3. Psych: Mood and affect are appropriate. LABS: Last HbA1c: No results found for: HGBA1C A1c-5.5% -done by primary care in September 2023 ASSESSMENT/PLAN: Anju Pisano has well-controlled controlled diabetes mellitus [Type 2] complicated by none.Diagnoses and all orders for this visit: Type 2 diabetes mellitus with hyperglycemia, without long-term current use of insulin ([facility]) - Vitamin D 25 hydroxy; Future - CBC; Fut (more content not included)... [facility] History of Present illness Narrative 11-03-2018 Note Date & Type Note Facility 11-03-2018 History of Present illness Narrative Patient is a 59-year-old female who presents today for evaluation of pain in both of her knees since approximately 2 years ago. She has a remote history of bilateral total knee replacements. Standing too long or walking too long makes it worse. She rates her pain is 7 out of 10. She seen a chiropractor as well as pain management. She had her left knee replaced in 1998 as well as her right knee. She did not have any problems with in regards to wound healing or infection. She presents today for further evaluation.Adult patient history sheet was filled out by the patient today in clinic and will be scanned into the EMR. This includes Past Medical History, Past Surgical History, Medications, Allergies, Social History, Family History and 30 point review of systems.Awake alert and oriented x3, no acute distress, appears her stated age, walks with a mild antalgic gaitBilateral knees:Range of motion from 0-110 degreesStable to varus/valgus/anterior/posterior stress through out the range of motionNo joint line tenderness to palpationNo effusionSILT in a shena/saph/per/tib distribution5/5 knee extension/df/pf/ehldorsalis pedis and posterior tibial pulseno popliteal lymphadenopathyno other overlying lesionsmood: euthymicRespirations non laboredPlain films were reviewed by myself in clinic today. She has cemented posterior substituting total knee replacements in place with no signs of loosening or failure. Alignment appears adequate.We discussed her today for reasons for pain and need for further surgery after total knee arthroplasty. Her exam and x-rays look good. We discussed a quad strengthening program. She can take anti-inflammatories. She does not require anything surgical at this time. All of her questions were answered.This note was created using voice recognition software and was not corrected for typographical or grammatical errors.. [id number] Work Phone: Evaluation note Note Date & Type Note Facility Evaluation note Diagnosis Type 2 diabetes mellitus without complication, without long-term current use of insulin ([facility]) documented in this encounter [facility] Instructions Note Date & Type Note Facility Instructions Not on filedocumented in this en counter [facility] Summary Purpose Family History No Family History Records Found Relationship Condition Age at Onset Recorded Date/T maria t Not Specified No pertinent family history Unknown Unknown Family Member Name Dates Details No pertinent family history: Mother, Father(V49.89, Z78.9) Status:Active Advance Directives No Advanced Directives Records Found Advance Directive Response Recorded Date/ Time Advance Directives No December 08 7:57pm Chief Complaint and Reason for Visit Chief Complaint Z96.651 Z96.651 Right TKA/post-op Assessments Diagnosis History of total knee arthroplasty, bilateral- Primary Pain due to bilateral hip joint prostheses, initial encounter Reason for Referral Status Reason Specialty Diagnoses / Procedures Referred By Contact Referred To Contact Patient to Arrange Physical Therapy Diagnoses Pain due to bilateral hip joint prostheses, initial encounter Rudi Rose MD [address] [place] [address] Scheduling Instructions . Status Reason Specialty Diagnoses / Procedures Referred By Contact Referred To Contact Pending Review Diagnoses History of total knee arthroplasty, bilateral Procedures XR BONE LENGTH STUDY Rudi Rose MD [address] [place] [address] Status Reason Specialty Diagnoses / Procedures Referred By Contact Referred To Contact Pending Review Diagnoses History of total knee arthroplasty, bilateral Procedures XR KNEE RIGHT 3 VIEWS Rudi Rose MD [address] [place] [address] Status Reason Specialty Diagnoses / Procedures Referred By Contact Referred To Contact Pending Review Diagnoses History of total knee arthroplasty, bilateral Procedures XR KNEE LEFT 3 VIEWS Rudi Rose MD [address] [place] [address] History of Present Illness * SYDNIE BUSH - 03/25/2020 10:40 AM EDT HPI: Patient is here today to be evaluated for bilateral knee pain. She is a pleasant 59 y.o. female. She is here today as a referral from Dr. Byrne. Primary complaint is pain and discomfort. She hasexperienced a progressive decline in physical function and quality of life secondary to the discomfort in the bilateral knees. She is status post bilateral total knee arthro[place] [address] Byrne. She reports the operations were uneventful with the exception of a a right knee poly swap in and a bilateral iliotibial band tenotomy. She reports she had no wound healing issues postoperatively. The more she is on it, the more it hurts. She has increased pain when walking for long periods of time. She has had multiple aspirations and recently a nerve block last week. She does report difficulty after walking several hundred feet. She reports she will have to lean on a shopping cart for relief of her symptoms because her legs feel weak and heavy. She denies fevers, chills, accidents or injuries in the past. Her pain is a 10 on a 10 point scale today. At this point, she is interested in what options are available to her today. PHYSICAL EXAM: This is an alert, oriented, and age-appropriate female. She is in no distress. Pleasant and cooperative. EXTREMITIES: The lower extremities have no gross deformities. Normal stability.Skin Intact. 5/5 motor. Intact sensation. Normal neurovascular status. Normal coordination. Well healed bilateral incisions. Range of motion upon exam today is 0-120 for the right knee with mild opening to vagus stress in flexion and mid flexion. Range of motion upon exam today is 0-120 for the left knee with mild opening to varus stress in flexion and mid flexion. Full motion of hip. No pain. Noimpingement. No instability. Contralateral leg has normal alignment. Full motion. No pain. No impingement. No instability. IMAGING: Plain film radiographs were reviewed. Long-standing films of mechanical axis that falls tothe center compartment of the bilateral knees. Plain film radiographs were reviewed. She has a bilateral posterior stabilized total knee arthroplasty in good position and alignment. No evidence of prosthetic implant loosening or migration. IMPRESSION: 1.) Status post a bilateral total knee arthroplasty. 2.) Spinal stenosis. 3.) Obesity, increased BMI. 4.) Instability, flexion and mid-flexion, bilateral knees. 5.) Hypothyroidism PLAN: I reviewed my findings with Anju. We have gone over the diagnosis and treatment and have talked about her options for management. She presents with no signs or symptoms of infection. We also discussed the varying other contributory reasons for pain following arthroplasty including compromised vascular insuffiencey, nerve pain and lack of ligament control surrounding the implant. She verbalized understanding. At this time, I feel the initial step for treatment is consult of her back to rule out it as being the contributory source. I offered a referral to a back specialist but due to thefact she lives in [place], she desires more local care. She has an appointment with her PCP tomorrow, she will ask her PCP for a referral to a back specialist close to her residence. We also discussed her current BMI and its elevated risks in relation to the postoperative recovery of a total knee revision arthroplasty. I explained in depth the reasoning behind my recommendation. A weight loss goal amount was calculated and given to patient. She understands the importance of this, agrees with my recommendation in order to receive the best possible outcomes and lowest risk for complications. She will work towards achieving the weight loss goal. We also discussed her diagnosis of hypothyroidism. She feels this is hindering weight loss. I suggested she consult with her hearing aide technician regarding this. She agrees with this. For today, I am going to being conservatively treating her with physical therapy for dynamic conditioning and strengthening, bilateral hinged knee braces and a script for Celebrex. Injections were offered but she was not interested. She will also begin using over the counter Voltaren gel at home. If her back workup is negative, she will call my office and we will consider revision arthroplasty for optimal mcc management. She agrees with this plan. All questions were answered. She has no further questions at this time. Vitals: 03/25/20 1103 Temp: 97 degrees F (36.1 degrees C) TempSrc: Temporal Weight: 106.1 kg (234 lb) Height: 1.524 m (5') Pain Presence of Pain: complains of pain/discomfort Pain Location: knee, right, knee, left Select Pain Scale: DVPRS (Defense and Veterans Pain Rating Scale) (Adult- Cognitively Intact) Pain Location: knee, right, knee, left Select Pain Scale: DVPRS (Defense and Veterans Pain Rating Scale) (Adult- Cognitively Intact) Recent Labs No results found for: CRP No results found for: SEDRATE No results found for: WBC, WBCCOUNT, WBCFETAL, HGB, HCT, PLATELET, MCV Past Medical History: Diagnosis Date Essential hypertension, benign Hypothyroidism Past Surgical History: Procedure Laterality Date ARTHROPLASTY KNEE TOTAL Right 12/09/2018 ARTHROPLASTY KNEE TOTAL Left 09/09/2018 SECTION CHOLECYSTECTOMY HYSTERECTOMY History reviewed. No pertinent family history. Social History Socioeconomic History Marital status: Spouse name: Not on file Number of children: Not on file Years of education: Not on file Highest education level: Not on file Occupational History Not on file Social Needs Financial resource strain: Not on file Food insecurity Worry: Not on file Inability: Not on file Transportation needs Medical: Not on file Non-medical: Not on file Tobacco Use Smoking status: Former Smoker Smokeless tobacco: Never Used Tobacco comment: quit 10 years ago Substance and Sexual Activity Alcohol use: Not Currently Drug use: Never Sexual activity: Not on file Lifestyle Physical activity Days per week: Not on file Minutes per session: Not on file Stress: Not on file Relationships Social connections Talks on phone: Not on file Gets together: Not on file Attends mu-ism service: Not on file Active member of club or organization: Not on file Attends meetings of clubs or organizations: Not on file Relationship status: Not on file Intimate partner violence Fear of current or ex partner: Not on file Emotionally abused: Not on file Physically abused: Not on file Forced sexual activity: Not on file Other Topics Concern Not on file Social History Narrative Not on file Current Outpatient Medications: [place] Thyroid 60 MG tablet, , Disp: , Rfl: losartan 100 MG tablet, , Disp: , Rfl: oxyCODONE-acetaminophen 5-325 MG per tablet, , Disp: , Rfl: No Known Allergies * Jose Mi LPN - 03/25/2020 10:40 AM EDT Ortho Nurse Patient Intake Room#: 1 Asif knee pain, TKA done in 2019, pain of 10 plus, has been back to DR Byrne and he referred to Dr Rose Date: 03/25/2020 11:12 AM Patient: Anju Pisano MR#: [id number] : 1960 Age: 59 y.o. Referring Physician: Self, Self Insurance: Payor: [employer] / Plan: [employer] / Product Type: *No Product type* / Chief Complaint Patient presents with Left Knee - Pain Right Knee - Pain Visit Vitals Temp 97 F (36.1 C) (Temporal) Ht 1.524 m (5') Wt 106.1 kg (234 lb) BMI 45.70 kg/m Pain Presence of Pain: complains of pain/discomfort Pain Location: knee, right, knee, left Select Pain Scale: DVPRS (Defense and Veterans Pain Rating Scale) (Adult- Cognitively Intact) Pain Location: knee, right, knee, left Select Pain Scale: DVPRS (Defense and Veterans Pain Rating Scale) (Adult- Cognitively Intact) Recent Labs No results found for: CRP No results found for: SEDRATE No results found for: WBC, WBCCOUNT, WBCFETAL, HGB, HCT, PLATELET, MCV History Past Medical History: Diagnosis Date Essential hypertension, benign Hypothyroidism Past Surgical History: Procedure Laterality Date ARTHROPLASTY KNEE TOTAL Right 12/09/2018 ARTHROPLASTY KNEE TOTAL Left 09/09/2018 SECTION CHOLECYSTECTOMY HYSTERECTOMY Family History: Her family history is not on file. Social History: Her reports that she has quit smoking. She has never used smokeless tobacco. She reports previous alcohol use. She reports that she does not use drugs. Additional Social History Y N Notes Do you live alone? [] [x] Who lives with you: Do you have children? [x] [] How many: 1 Do you currently work? [] [x] What type of work do you do: Do you have stairs in the home? [x] [] How many do you have to climb to enter your home: What services do you currently receive at home? [] [x] Name: Do you have transportation to go to outpatient therapy if needed? [x] [] What Equipment do you have at home? [x] [] [x]Walker, []Crutches, []Commode Chair, []Shower []Chair, [x]cane, []bracing Are you followed by a decontamination technician? [] [x] Name: Are you followed by pain management? [] [x] Name: Are you followed by any other specialists? [] [x] Name: Outpatient Medications Prior to Visit Medication Sig Dispense Refill [place] Thyroid 60 MG tablet losartan 100 MG tablet oxyCODONE-acetaminophen 5-325 MG per tablet No facility-administered medications prior to visit. Current Outpatient Medications: [place] Thyroid 60 MG tablet, , Disp: , Rfl: losartan 100 MG tablet, , Disp: , Rfl: oxyCODONE-acetaminophen 5-325 MG per tablet, , Disp: , Rfl: Allergies: She has No Known Allergies. Y N Are you allergic to any metals? [] [x] If yes, what metals: Review of Systems System Y N Symptoms Constitutional [] [x] Weight Loss [] [x] Weight Gain [] [x] Chronic Fever [x] [] Insomnia Eyes [] [x] Resent Vision Change [] [x] Cataracts [] [x] Glaucoma [] [x] Any Hx of Metal Fragments in the Eye ENT [] [x] Loss of hearing [] [x] Hearing Aids [] [x] Seasonal Allergies [] [x] Dental Issues Cardiovascular [] [x] Chest Pain [] [x] Angina [] [x] Stent [x] [] Hypertension [] [x] Heart Murmur [] [x] Irregular Pulse [] [x] Pacemaker [] [x] Palpitations [] [x] High cholesterol Respiratory [] [x] Wheezing [] [x] Shortness of Breath [] [x] Pneumonia [] [x] Bronchitis [x] [] Sleep Apnea [] [x] COPD [] [x] Date/ LOC of last CXR: Gastrointestinal [] [x] Heartburn [] [x] Indigestion [] [x] Constipation [] [x] Ulcer [] [x] GI Stomach Bleed [] [x] Diarrhea [] [x] Colon Cancer [] [x] Acid Reflux [] [x] Blood in Stools Musculoskeletal [x] [] Arthritis [] [x] Muscle Weakness [x] [] Joint Pain [x] [] Back Pain [] [x] Fibromyalgia [] [x] Bone Infection [] [x] Swelling Multiple Joints [] [x] Reflex Sympathetic Dystrophy Skin [] [x] Chronic Rash [] [x] Ulcers [] [x] Eczema [] [x] Psoriasis [] [x] Skin Cancer [] [x] Melanoma Neurologic [] [x] Numbness [] [x] Weakness or loss of sensation in arms or legs [] [x] Leg Pain / Sciatica [] [x] Headaches [] [x] Loss of bowel or bladder control Psychiatric [] [x] Anxiety [x] [] Claustrophobia [] [x] Other Psychiatric Problems Hematologic [] [x] Easy Bruising [] [x] Easy Bleeding [] [x] Blood Transfusion Date: Endocrine [x] [] Hypothyroid [] [x] Hyperthyroid [] [x] Hot Flashes [] [x] Hormone Replacement [] [x] Prednisone Use Does pt have dentures? Yes Partial lower documented in this encounter Chief Complaint BILATERAL KNEE PAIN NPV Additional Source Comments INFORMATION SOURCE (unrecogn ized section and content) DATE CREATED AUTHOR 06/12/2018 [facility] DATE CREATED AUTHOR AUTHOR'S ORGANIZ ATION 05/16/2019 [facility] DATE CREATED AUTHOR AUTHOR'S ORGANIZ ATION 11/05/2020 [facility] DATE CREATED AUTHOR AUTHOR'S ORGANIZ ATION 11/06/2020 [facility] DATE CREATED AUTHOR AUTHOR'S ORGANIZ ATION 03/08/2022 [facility] DATE CREATED AUTHOR AUTHOR'S ORGANIZ ATION 01/26/2023 [facility] DATE CREATED AUTHOR AUTHOR'S ORGANIZ ATION 10/11/2023 [facility] DATE CREATED AUTHOR AUTHOR'S ORGANIZ ATION 12/02/2023 [facility] DATE CREATED AUTHOR AUTHOR'S ORGANIZ ATION 01/12/[address] [facility] DATE CREATED AUTHOR AUTHOR'S ORGANIZ ATION 01/18/2024 [facility] EPIC Reason for Visit (unrecogniz ed section and content) Status Reason Specialty Diagnoses / Procedures Referred By Contact Referred To Contact Pending Review Diagnoses History of total knee arthroplasty, bilateral Procedures XR BONE LENGTH STUDY Rudi Rose MD [address] [place] [address] Reason Comments Pain Reason Comments Med Refill FOR RECORDS PERTAINING TO PATIENTS WHO ARE OR HAVE BEEN ENROLLED IN A CHEMICAL DEPENDENCY/SUBSTANCEABUSE PROGRAM, SOME INFORMATION MAY BE OMITTED. This clinical summary was aggregated from multiple sources. Caution should be exercised in using it in the provision of clinical care. This summary normalizes information from multiple sources, and as a consequence, information in this document may materially change the coding, format and clinical context of patient data. In addition, data may be omitted in some cases. CLINICAL DECISIONS SHOULD BE BASED ON THE PRIMARY CLINICAL RECORDS. [employer] provides no warranty or guarantee of the accuracy or completeness of information in this document.
[2024-02-14 09:09] LABS: Estimated GFR (African America >60 (>=60); Estimated GFR (Non-African Ame >60 (>=60)
--- NOTE | 2024-02-14 09:42 | CT_ITS ---
[address] [address] Patient Name: KARLOS PISANO MRN: [id number] date: 1960 Sex: F Assigned Patient Location: LAB Current Patient Location: Accession/Order Number: [id number] Exam Date: 02/14/2024 09:25 Report Date: 02/15/2024 05:50 At the request of: VIVIANA SUGGS Procedure: CT chest w con EXAMINATION: CT chest w con HISTORY: Localized Enlarged Lymph Nodes ; follow-up pulmonary nodules COMPARISON: CT chest 02/09/2023, 10/15/2020 TECHNIQUE: Multi-planar CT images were obtained without and/or with IV contrast as indicated by examination type. Axial, Coronal, and Sagittal images. Dose reduction techniques were achieved by using automated exposure control and/or adjustment of mA and/or kV according to patient size and/or use of iterative reconstruction technique. FINDINGS: LUNGS: Stable calcified granuloma near right lung apex. No suspicious nodules or acute infiltrates. PLEURA: No mass, effusion, or pneumothorax. VASCULATURE: No abnormality. ANA: No mass or adenopathy. MEDIASTINUM: 1.7 cm long axis pretracheal lymph node. CARDIAC: No enlargement or pericardial thickening.. Coronary artery calcifications: AORTA: No aneurysm or dissection. CHEST WALL: No mass or axillary adenopathy. BONES: No bone lesion or fracture. LIMITED ABDOMEN: No suspicious findings Limited images of the upper abdomen. OTHER: Negative. CT/CT chest w con IMPRESSION: 1. Stable calcified granuloma near right lung apex. No suspicious nodules or acute infiltrates. 2. Slightly prominent pretracheal lymph node, but smaller than seen on 2 prior studies. No overtly suspicious lymphadenopathy. Electronically authenticated by: ALEXIS LUONG Date: 02/15/2024 05:50
== END 2024-02-14 08:46 | disposition home or self-care (01) ==
LOC: LAB 08:45
PROVIDERS: PCP Nurse Practitioner; Visit Provider Internal Medicine
DX: R59.0 Localized enlarged lymph nodes (principal)
CPT/HCPCS: 36415; 71260; 82565; Q9967

== ENCOUNTER 2024-03-30 18:22 | Emergency (ER) | payer OTHER, SELFPAY ==
[2024-03-30 18:24] VITALS: BP 180/86; PULSE 80; TEMP 36.7; O2SAT 97; BMI 34.0
--- OUTSIDE RECORDS SUMMARY | 2024-03-30 18:28 | XMS_ITS | CCD ---
Author Organization [facility] CliniSyde Care Team Providers Care Registered Respiratory Therapist Name Role Phone Jd Timmons Unavailable Unavailabl e *SELF, REFERRED Unavailable Unavailable Maurizio Penny Unavailable UnavailJd Almaraz Unavailable UnavailMaurizio Paulino Primary Care Provider UnavailDada Ely Attending Provider Unavailable Maurizio Penny Primary Care Provider Maurizio Penny Unavailable Unavailable Unavailable YUMIKO, JOSE D Attending Unavailable DR DARREN ALARCON V Consulting Unavailable YUMIKO, JOSE D Primary Care Unavailable YUMIKO, JOSE D Admitting Unavailable YUMIKO, JOSE D Consulting Unavailable ZieberDR Steven Consulting Unavailable YUMIKO, JOSE D Admitting Unavailable YUMIKO, JOSE D Attending Unavailable YUMIKO, JOSE D Consulting Unavailable MISC, DR JACKSON Attending Unavailable DR DARREN ALARCON V Consulting Unavailable MISC, DR JACKSON Admitting Unavailable YUMIKO, JOSE D Primary Care Unavailable MISC, DR JACKSON Consulting Unavailable SHAMMO, QI Primary Care Unavailable Unavailable Primary Care Provider UnavailJORDON Matias Referring Unavailable JORDON PAT Attending Unavailable JORDON PAT Attending Unavailable BRITTNEY BOOGIE Referring Unavailable EROS ROGERS Attending Unavailable EROS ROGERS Attending Unavailable Richa Paul Primary Care Unavailable Richa Paul Admitting Unavailable Richa Paul Attending Unavailable Livan Andrade Admitting Unavailable Livan Andrade Attending Unavailable Maurizio Penny Primary Care Unavailable Unavailable Unavailable Unavailable Medications Current Medications [...] capsule 3 10/31/2022 Active Start: 03-27-2016 take 11027 [IU] by m outh every month Ergocalciferol (Vitamin D2) Active 65493 UNITS Oral every month December 08, 2017 7:31pm losartan potassium 100 mg oral tablet (8 sources) Angiotensin 2 Receptor Ander Start: 04-12-2021 take 1 tablet by mouth once daily losartan (COZAAR) 100 mg tablet 1 tab(s), PO, Daily, # 90 tab(s), 3 Refill(s), Pharmacy: [facility] [id number], TAKE ONE TABLET BY MOUTH DAILY 0 [...] DAY 180 tablet 3 08/14/2023 Active omega 6-ulg-gpg-fish oil (Fish OiL) 300-1,000 mg capsule (1 source) omega 3-dha-epa- fish oil (Fish OiL) 300-1,000 mg capsule Take by mouth. 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 TAKE ONE TABLET BY MOUTH ONCE DAILY EXCEPT TAKE 2 TABLETS BY MOUTH ON SUNDAY AND TAKE 2 TABLETS BY MOUTH ON SUNDAY 117 tablet 3 10/03/2022 Active Start: 10-12-2017 [place] Thyroid 60 MG tablet Completed/Discontinued Medications Medication Drug Class(es) Dates Sig (Normalized) Sig (Original) DULoxetine 60 mg delayed release oral capsule (1 source) Serotonin and Norepinephrine Reuptake Inhibitor Start: 8 take 1 capsule by mouth once daily DULoxetine HCl - 60 MG Oral Capsule Delayed Release Particles TAKE ONE CAPSULE BY MOUTH EVERY DAY Quantity: 30 Refills: 0 Ordered: 30-Apr-2018 Muoh DO Nereyda Start : 20-Mar-2018 Active ibuprofen 800 mg [...] HOURS. Quantity: 1 Refills: 1 Ordered: 23-Jan-2018 Nereyda Ford DO Start : 23-Jan-2018 Active meloxicam 15 mg oral tablet (1 source) Nonsteroidal Anti-inflammatory Drug Start: 8 take 1 tablet by mouth once daily Meloxicam 15 MG Oral Tablet TAKE 1 TABLET BY MOUTH EVERY DAY Quantity: 30 Refills: 2 Ordered: 10-Apr-2018 Nereyda Ford DO Start : 23-Jan-2018 Active methylPREDNISolone 4 [...] Test Name Value Interpretation Reference Range Facility Coding Summaryon 02-20-2024 Coding Summary [facility] PiocknvkXBy2gVa+PGhlYWQ+LQ3AROYbN 83qqILldN5lD8IWNVuCWlgqZKVDRRoEEu GgpuZgPP9msHJuSECx IC8+EN5sZFMxJurwnEEzs6J9pSP1I15sh v2bKHqgeIB8GIFzMbImblngn3jjlYa9ER cuNmluOyBt UDCjeE09UTH5mM63Nn90kTRzrNGwp2eza Rc6EyKsNEZvXPY2jEgvFMrne0XsVMLpN9 1itSRju9I8 NPVntKvilSDkBqBlrEE9jR1fMZcaoancs 7fmgnziQfu0zu03eBEyw8Q8eSJ7R2Qoaf O3TMPueFZv CsebeRYQhU1vwtosv2ckvdkmAzJaJUVvF Rw3ZIf8GTFsdUfiEkBuCY81EIV3TOTbga IfW9RgZONh sXhjHcR1b4H5Ki1SV1NEKvxeT0EKNHARS TwvdGQ+JI48sy58V2YyDqsiGpl3XUDwAL S9jHA6hJ0o PWMdVJumd6I0eXD5Z8ErwlKvcl9lq0rfH VYvHZlpW72npRRcc9G4YYXftZS4CNVwzM dqJoEdsA87 Oyc+CXJuaSxkg7UqNuhnt1vum7rxkWs3D yxzMYLpybCgyDcsWOQ1j8BbTo4uPJUwpF X3oMC4vC3r KyOvNzP8ERhbP719FlUyvLNzFwebF75eO 3JvdXA+ZXIwOob8WSOydFwtXS4fU6RkLM RpbmctbGVm gJoeEG2vEAUpkvmfFTWdcL4kCVAjS8o4B eVvRuZ4RLjnE1UpBZIvzavrMp96tV4gXy QwJoY2LFhy M7UqlcO4CNYbcDYaKZhsJPZ6N69cs9N6J SXiDZWiIGC2rKB6zS5kkEwmpuqkfTWtbL sgdmVydGlj UAcqYNxoH591RFAlrLmsWmQrDUibXiXXZ XRlOiAgMDkvMTEvMjAyNDwvdGQ+PHRkIH K9wHaiDQMj fUWmWYejGp0orVoswHqjDX5yLXHochyfE JQnhF5iZUEgpOKoyGsqWM1qHPAqomytr4 82SgWmWXT0 PRYzeYKbD2WstU7aJuJsWGKcSFVyO7Oda BTzHQdeQ346WCvnVmL8SMPzaaLeW2MrRO FsaWduOiB0 r6N6Ux9Wh3NyogawD1BooXNlFaClWkhbS Rc9C8OfXouloJI+ES62TCOeUE44RIn9ZK A6kLslOJmz ZIZwB6KcjV2lNhEoUGVzNKOyVhh+PHRhY ggzEJdsJAQhLBgxWMSrEwKxnRzhMP0oPb 9yZGVyLWNv oEetbAVtIqBha7egHJXwJDwhZD1xqJkcS 9OohCI3YTIxh6s5Jv41Z30dW1RvlAD+PG QhoIJ6wWW2 tH5wWuIyQtT0QPruR332MeZodVBuOtazd 8emk7snhGh1AmJ1BUGycmRfxNvwGGQ4p4 GvAh21Y94i RWdlHAFePPVvMZLmNOIcfAoepw9jnN3uU i8+LGMgfLT7gMV8vU2lEpRbYaN9ZMziR8 49InRvcCIv Eklvp2uja3eilXe0EgNrVKOowiPauKxpA TT2o0TqKx17N1YflRfzy0CnUfz5jv08vN Nyj8B9xZP4 K2MsZFAhfmzbcCXxwFmcKV9sYOPyusxtL GZgiW8cSZFyH3q0GxUbJkL3JQedF6Pnuh F0LYHjmUEm ITQhdEJFjZ6rlgyok2edknhlJxTzEYMyL Us8VWg1HQUgnKqjQyNsLYL9CdM5MOA6eR SixG7csNzr ydqffU4xEzg+SIK1jDCukVKHQO0iGigmt GQ+PRZlXEM2qIqmJCncAPMqbL5qPSCeA2 v8EpNaOeO7 OVpzM0ZuzmW8YMWjpPQePAIhdFEBmB8yl euip6unofzgWsRqVAQfJEz0HCt0FXFqoK duOiBsZWZ0 OeG8KSL6mUQxkN5cfVyidkaljS8sDqi+Q dthoQhzJUW0ZZr1Q1QzOjk1RACpoVpyPF 0ncGFkZGlu Oh4ptDatwKtnPY9wHZLzmcbzl950UhXpy 7jeHIPpgNHnEYtjQJE4B80hz7I9AEGcTJ GaOMK6mIA3 xT4wcRlkshzsuSSmuZhpcdRhaMdfQRgqR CpyQ974XRGbdBbkPrFgQXv3H6AtLhm8QO AcdEdyWR2r dYNxLIntTz3rgEcbyOinAP7uYNWbymaam 627FhPew5fxIYKigMOkSDfrFZQ1R94pf0 F2KZZmMFXy MWP3zOD0rJ4qdDanaqqfzXMyqXlhfnNma WkdXPknTWloJ966VWBohUecVoXmwUr1F9 AwQmf6KVHz yQgfVL2dgGVoANtkUs7wuBspkDdcAQ8xN FScnwwdz795TlMca1kdIYRhoTIrGSzhTT B5U62mb5M2 QKIfYGVrVKU3rBU2kV7vrYeizhgroMNid ZlbzxMivIrbUGbtDIezG449OJLoyNzwLt BhdGllbnQg JSmmSCo1C1WwAejffJL+TI69MTOhIX70l SBwvLFyp3eogOl1XmFpEPUvAZC8iJwrAJ rqp1BwZMRi C69jlUDai4R4GOQbdHihiGFcFaFgpII1n D9lVIkgkkhqc2hrulvoJuvlu5dafg31iP 51D96nFNvv NWInORQcQFLaGYPbtKqcmu1kjT1fEb4+P WFozIS7dIP2uW6kAZUqZcC2FFhyG594Uc RvcCIvPjxj x2aec0eqxAg5XjC3QEXaxfOatBjmUUB4s 5LiOh37M51qLLnzILSfEOScWWKeYMOzqO nhtn6xdM5z Ii8+MOCemEJ7cPM5eK4uNzUyKiZ4JXrkA 729JhMjnDPpHgqwO25eS3VogZK+PHRyPj p5VFLklHtd VS1mvJKyKXrsLt2rMCV0YcUiAhQmWOtsL 8DxAURreokiixnymSE7LHSeQQWysP59Yt 9udDogMTBw qAENrR4aerxqy1rniocfAkDwLZHiGJc9H Ky9CHWhnLohFoRdLKP4GlS0LVP8tCDzkZ 1hbGlnbjog oK4uN3OtDTGeignwLf12gH0qIeQvLmZ5L GluOyc+OTmAOmneJYbHKiATOB46Q0TfDw o0EHArbLma QP9nuQNvDWvkQz3pwOultTzyVI1eIZTlp ffxKOWfjL6wREMhgSUxnRkjZR2uFIDgvz wrg506RlVr CKF9NLYzjSReW0BnlZ3yLfVqWVGgDCVcU 5LixNGmYOghX442LWubCqC9UIJjfeYbN3 FsLWFsaWdu GvC3b1H8Gg5eLS2cXE4wJSEdLJ00HS13g MTtu8V8lAR1H0LsZDGxpllsnrivpDV1QK YmWGJcbA13 pTDdUKksWf0kf0K5e206UBYvDQAkkE73P y8dpEslWSRadIXFqL0qkhndw9yjbapiCd AwMDAwMDt0 ZDr8OZGyqKibIdCzLRJ5RnD7FVZ9gLDjg W0jsRefbepusC0mBai+ViAqVSNidsX2S2 WnNpk1EEAr xDclQR6xzHZcCRxqUk5qvUhzzPcwMO4gH XLqezanDFGqiR2hCEKyoDEpkBuiFL5uXL Kavbjwu925 UhZfMLH6WTItqDCfP3EqqG2oKbRzWAHcH QDlP9KmiOOvGChfQ395TZgsAdY4NNEsuh BnB9ToVUZj jBtgLxS1g4K3Nm4DUN0XDXZ2M1BlAiv5O JYqgEjmFF7pcYVxLNedXa3fhBlobVvpKS 4wNTBpbjtw CBLfoM9kJSFryUVspHxlSF7sSSZhuapaj 803BsTiDLZ5TZXafLXoA7SefR2iWbYwWN GqUBJtX2Vg iQBjMBeoN046LGeoXeF5UDFfvgUiF1VaC EXibUjcIvF4w8S8Cn5NxKJqL6NxS9q3T4 RkPjwvdHI+ WS11NUEfLE57lOWfiCGer4umzIk2RwElV CEtHLG3cBzaBJzey2UfTWHvQ98bpCKmn0 J5AXTgmFje uJOhElDxiTH6xT3gOFfwiujlc4xqstxgK gary9njfg16iD46F86lMTifXTHgFZZoNO UiIHZhbGln zb0ahS2rJa5+SWCsdCW1iBM1jA4wZlVvJ gW1SRdfN242AxWeyVCzPtinu3hzy3sgxS l4RjEeLTWl ulRckJkyUOL8r4SpGh26E17cGFhtTQDzD CTzANEhZURwnAmneu7slT1kVq5+PC9jb2 zevz15lQ97 dHI+EFLnJFW4eKhmBZyiSURcsQ3uKOvaJ wJ7SSMdVpMjnE77kLHaHTszLr2unIwnaU mnRA8xOFYy lkmht649BxJol4fxZWXcpAQqWJqkQDJ7M 15kc4V1EIAhDCKiMQZ7uGC7oU4ihOixlj ogbGVmdDsg eyGtkHuvSDpzMTxgG616OUElcWzzScDkh OGgD5gtnkEQZW6tVfvgrVE+SIVsEXU8gO xlPSdwYWRk bU1eCAUaV6x7KcXwThW4JQzgY4OianE0W GJfcXPhDFAxdSKDoM2sfqklv7sncxchLt AwMDAwMDt0 FZu7PGVmmMdeGjUwLUM8ZiA4LYH6uLMsf N4sfNzturqllV3uIjq+RklOOjwvdGQ+PH LaZHR6dByx NDznNTJanT4nPBTbL5o7IpWtJsO8ABodL 1LjmnH5AAWuaDBpIEPacZAFvG7ufbits0 xvcjogIzAw NUPgAKk3GYo0PDUglTpmNlHjCQF0XaA4D SY2hSXryB1euVxqauzwqQ6pMbx+TVJOOj wvdGQ+PHRk KFE9sMfmIRleGAKzdZ3gROUtS3v5UcSgL iI0CRhtN2UpgmT2SNReqNGyDFRecLGZxE 9jziozl9ch jnncXlSoTXPcIVj8VHs3LKXmzZtvWhZpC SH0RiG0FLR9mGKsbR1ntYioauwmgX2qFx c+KFD4MHH1 AY26CC67U8GmWbpheRTnyRU+PHRhYmxlI JgjLAIbTFehJTWvUjCyrSgrEM1tWb5zDI VyLWNvbGxh Suzi (more content not included)... [facility] ED Clinical Summaryon 2023 ED Clinical Summary [facility] - Emergency Department [address] [place] [address] ED Clinical Summary PERSON INFORMATION Name: ANJU PISANO Age: 63 Years Sex: FEMALE : 1960 MRN: Acct#: Visit Reason: Dental pain; DENTAL/JAW PAIN Arrival: 02/13/2024 14:17:31 Discharge: 02/13/2024 14:46:00 LOS: 000 00:29 Check In: 02/13/2024 14:17:31 Checkout:02/13/2024 14:46:00 Address: [address] [place] [id number] PCP: Provider, Unlisted PROVIDER INFORMATION Provider Role Assigned Unassigned Cyndie Pedraza RN ED Nurse 02/13/2024 14:19:56 Richa Paul MD ED Provider 02/13/2024 14:19:57 VITALS INFORMATION Vital Sign Triage Latest Temperature Tympanic Temperature Temporal Artery Pulse Rate O2 Sat 98 % 98 % Respiratory Rate 16 br/min 16 br/min Blood Pressure /95 mmHg /95 mmHg MEDICAL INFORMATION Medications Given: Allergy Information: No known allergies PHYSICIAN DOCUMENTATION DISCHARGE INFORMATION: Discharge Disposition: Home Discharge Location: Home PATIENT EDUCATION INFORMATION Instructions: Dental Abscess Follow-Up: With: Address: When: Follow up with dentist Within 3 to 5 days DIAGNOSIS: 1:Dental abscess Patient Understands: Yes - Patient/family/caregiver verbalizes understanding of instructions given Comment: [facility] ED Note-Nursingon 02-13-2024 ED Note-Nursing Pt ambulatory back t o ED RM 8 C/O right lower side jaw/tooth pain. Pt right side by the jaw line is swollen. Pt on the bottom right side has a tooth that is bothering her. Pt is rating the pain a 9/10. the pain started two days ago. i couldn't sleep last night because of the pain Pt denies any fevers. Pt is unable to get into the dentist [facility] don't take my insurance pt is A/Ox4 call light within reach Normal [facility] ED Patient Summaryon 024 ED Patient Summary [facility] - Emergency Department [address] [place] [address] PATIENT DISCHARGE INSTRUCTIONS Patient Information Name: ANJU PISANO Age: 63 Years Date of : 1960 Reason For Visit: Dental pain; DENTAL/JAW PAIN Arrival Time: 02/13/2024 14:17:31 Primary Care Physician: Provider, Unlisted Attending Physician: Richa Paul MD Comment: Visit Diagnosis: Diagnoses This Visit Dental abscess (K04.7) Dental pain ([id number]) The Pharmacy at [facility] is open Sunday through Sunday from 9A [...] alcohol and/or drug addiction problems; contact the [facility] 01/01 Crisis Hotline -Kbih 8UHHU fj [phone]. If you received any narcotics, sedation, or [...] sign any legal documents With: Address: When: Follow up with dentist Within 3 to 5 days Medication Information: The exam and treatment you received today in the [facility] Emergency Department were for an urgent problem and are not intended as complete care. It is important for you to follow up with a doctor, nurse practitioner, or physician?s assistant professor of psychology for ongoing care. If your symptoms become [...] so we can reach you if necessary. [facility] Emergency Department has provided you with a complete list of medications post discharge. Please inform your crabbing machine operator/provider of your visit and for further instruction on these medications. Any specific questions regarding your chronic medications and dosages should be discussed with your primary care physician(s) and/or pharmacist. New Medications [facility] [id number], [address], [place] [id number], [phone] acetaminophen-hydrocodone (acetaminophen-hydrocodone 325 mg-5 mg oral tablet) 1 tab(s) Oral (given by mouth) every 4 hours. as needed as needed for pain for 3 Days. Refills: 0. amoxicillin-clavulanate (amoxicillin-clavulanate 875 mg-125 mg oral tablet) 1 tab(s) Oral (given by mouth) Every 12 hours scheduled time for 7 Days. Refills: 0. Additional medications on your home medication list not specifically addressed. Please contact the ordering physician if you have questions about these medications. ascorbic acid (Vitamin C 500 mg oral tablet) 1 tab(s) Oral (given by mouth) every day. calcium carbonate (calcium (as carbonate) 600 mg oral tablet) 1 tab(s) Oral (given by mouth) every day. cholecalciferol (Vitamin D3) 2,000 International_Unit Oral (given by mouth) every day. cinnamon 1,000 Milligram Oral (given by mouth) 2 times per day. ergocalciferol (ergocalciferol 1.25 mg (50,000 intl units) oral capsule) TAKE 1 CAPSULE BY MOUTH ONCE EVERY MONTH. flax (Flax Seed Oil) 1 tab(s) Oral (given by mouth) every day. fluticasone-salmeterol (Advair Diskus 250 mcg-50 mcg inhalation powder) 1 puff(s) Inhale (breathe in) 2 times per day. Refills: 3. ibuprofen (ibuprofen 600 mg oral tablet) 1 tab(s) Oral (given by mouth) every 6 hours. levothyroxine (levothyroxine 75 mcg (0.075 mg) oral tablet) TAKE 1/2 (ONE-HALF) TABLET BY MOUTH IN THE MORNING AND 1/2 (ONE-HALF) IN THE EVENING BEFORE MEAL(S). liothyronine (liothyronine 5 mcg oral tablet) TAKE 1.5 TABLET BY MOUTH IN THE MORNING THEN 1.5 TABLET IN THE EVENING ON AN EMPTY STOMACH. losartan (losartan 100 mg oral tablet) 1 tab(s) Oral (given by mouth) every day. Refills: 3. meclizine (Antivert 25 mg oral tablet) 1 tab(s) Oral (given by mouth) 3 times per day as needed for diz (more content not included)... Normal [facility] Follow-Upon 01-10-2024 Follow-Up [id number] Anju Pisano 1960 F Date Provider Department Center 01/10/2024 [id number] PAT [facility] ENDOCR [facility] No family history on file Level of Service:20039 OR OFFICE/OUTPATIENT ESTABLISHED LOW MDM 20 MIN Reason for Visit and Comments: Follow-up [064092] [facility] Coding Summaryon 12-01-2023 Coding Summary HTMLBase 64 KipctgseUSj2xOw+PGhlYWQ+VE6VWYWyQ 35mrQRoiU3vT3VOHOdBSlxkJXBMGDyDRm NoqwDlPV9deYHrYXIp IC8+CO1fIUKpKncouWSur8I6dON9U20ui q6aXFptcAY7HZApAyUoenltp5mgoTt1JP cuNmluOyBt UNSggW74NJP0hE36Vi83jSXgoRHdi8utm Dk5EfYaRLIvCJB7yExeUPkec2KeZMWjR5 8auWXgk4V7 LDAptSqpbATrJcQinPD3vS0zCUteudbhz 4doqbzpWer9od32dDRqu9H0uTK3A9Qfne I4DZUzzOSc ErjahLJRyS4vecnux7fnbxsdMgGgJPFtG Uq0DPi7REIsxPczEnMcAR26SAF3OJLupv ZvW4KlDNYd dGyeJhN8c5E2Xa7QD9GKUuduC9JAXCGCN TwvdGQ+YB91kd19F4ReNciqAco7XHBfXI X2gRZ6kJ1a XPBtTUipm5O0iXM1O0PnyyJywf8hs5daI ICxTWuvW95vzUGob5I0GKFyoRA9KOVpxY zzFvXomS36 Oyc+ZCNuhIoor6HaKopjk5fdb4prtUa2O guyNKLyczKsmKarRFZ1i6SnQy3kGNBmcF C8aVR3rR4j TsQpNxW3UYffN574MgNogNAsKlhjM33qI 3JvdXA+BESmCey9JZSmmUwlJR0oG8OnDN RpbmctbGVm uXxgJZ0tFLScepeqODPebH8cOLIlJ0o2R qEdHeK8NNutI4IcFJSmbeeePq21cM9yMt FrTtW6EHsg P9QzwfN2QXCiyKPjUVqsQVJ7D28kg5S3Q KDhYFOnJEN2bMV4jO4kxZdkttxaqRLvuG sgdmVydGlj WCwtTYrvV246JWPkeSjhWeWxIUvtBsJMM XRlOiAgMDYvMjIvMjAyNDwvdGQ+PHRkIH F7lFafWIHz jARgVLrvUf8fmGodpFleUG3tMEFmzxiyW ETbnO3wVFVmwVEsnZnoXG3cBDVlrtbgp0 99EzLeNMC0 AUUrkVJmO4VurG6mMmXrNWWeYBNwA3Eox CRdXSqfU577KVdhYdM7KDBjpuFtE6OzFI FsaWduOiB0 b9F1Ir3En5EfbrlaI9HtcBRcHtEsIqbzS Db5M5KdRpjhyBS+PF84SKBeTU78EUx8VZ P8oJzkGXcm ZYYmM1KofN4fUdClKXMnQJDiKgx+PHRhY jhgQSmuJLViBVnhURMuUiKlcDmfNX9vCf 9yZGVyLWNv vCcqjTBxPfZpt5axHAIiOEhkGF4euXsnK 5DlnZR1SECll3h8Hd12C26hH7SpdBQ+PG ExzKF5fRB8 rO9dJaQkBzQ3BWmoY669QyLmrGRjIxnim 9als6dmbIo4UbM9SNAholZfqQquHFT9n5 LpNd21W50c IAtiJKCeMBOfRZVaNECuqCseqd4maK4xQ i8+RXNjoVK1uFA9mW2pAyZuMzE0LFyjB5 49InRvcCIv Qwuhg6bio4ruyKq2ThToAOSbgqDkvKtoP LD6w3YjAt24Y9TcsSycf4TjQud3ot32cJ Asq0A2yTN5 Z2UaKFRzhgaefUYyqLliCF7eGSSjvtdwK EXqlB3yUSFwK1a1EfOmLgZ7FKeqR2Ynje K8RAMyhPRv JUEhnPDXfI5vazauu0jplbvxMgNoUWQkH Uu2HOk0VIIwkJxiYvEuTEN4QcA7FEL5dO YqcN4bmUch svrzxW9uCpv+KNM0bDBrwAJYHG0fMkmiy GQ+MRYqTPM7hUrhTWeyMMIbtM7zXEBvK9 t6SbOtTkA1 WWzrB9VtfyG4ZXBmaJZzRVEefMZPgC4fj brax6reyezbCbUpYYHlWSg6PXx4SHZlgH duOiBsZWZ0 KjX0IOY3oVRvdL5eqHpscbnhhO0qQvz+Q djheNfpOVU4DBq9V9TjYko3YUNjrIgnVS 0ncGFkZGlu Kj9oxXyciWzcSH3gMQRqjgtry405GfTyl 7hlEPYeqLOwCFhrXLS4H40wu0L4ZBVcGH GyHRG4bNC9 mN0iaSatpwjtlGQeyUuqerWorAzeIGnvE DmsN361YYCquYyjPaJiKZt7X8QsOnr2KF DozMxoRL8v xVXaLCuiZb0ftIubzSfxDS4fGSPrpvote 236FlOfn9ljLNDuhUXsDUiwDQN7K09wy0 L0VTLaPEZs EAC3vGN3iX4cjEeomzbgnWDnqOdundAha BdkKYsrDPcmW822KORblDhzKePlaUe8M3 SeZaj5VKEz uYioDM0ehVSyKAygQv3npKequJjlTP3zT HZgrhayk497AtOdt4aiKMEljCSpIMenKK O4G63nd7C7 RUDnWNOoNJJ9pZV3rE8qiIsokoqsvWHud PvorgRsaPvzIOzbOYzqI084KOOtsCmeYz BhdGllbnQg KQkkVBa3J5YsVubtlTD+HV81YWYyQG79o MFimDMlj2bxeDp5CiUzWEIiOLX8sFftAU hse2NxCGRg E97lcUJwe9W6XGDmfWudoDEhVwXxbYR7j N3xRYluvokaw4efevdqMqvhu9zuxj93mJ 55A11iFWnx BUFoSIBbSXQhDTJgeXrben8lmG6nRr7+P NFfqMG9mWV4bZ8mDEVbUmZ7XNzoJ317Ww RvcCIvPjxj u7shu5dkyHh3VwH5MTOwixScuRxzANB9k 6EzAt98Z24gISvmMRMzNGVdUNVuTQYdeY fdkt1aaO6k Ii8+WUXmlVU2rDY9oG9cUuRzYlJ6PLglE 441HxExuOJyWmnpD93cK0SgsDX+PHRyPj a8WXMwxPoe FG8liYAlKHlyZs2dDNB6YfVwMwEtEXepB 1IsSZYeevhsgigdpOT3OORyGLYlxR47Wg 9udDogMTBw wUEVqG9sknbee5ulhhdjCcEePQDjKUe6Y Cr1RGZawTsdCzHsNGR0PtD9DGE9pHCocR 1hbGlnbjog cU0bD7TaNVQuscyxBu13pO4lEaMiZxV4O GluOyc+NZiFTdqlZVqDRqGKQT87C4TvJd w7BYUudTzz PJ6xvJAwFKlkBh4ojWlwnLseDQ4kIYWxw gcdUOQqhR4hUVSulKNrmZktCL8fCJZtaz yun293OcCy UAT8EYSyaZAqW9XolG3ySlIpTSYjZFBkW 3PveVIjLRhzA310FIgmTjU3SZDufxOpY2 FsLWFsaWdu PlL9r8O3Nd9kHL9zSY1pBFOzFW82HR52s UXgy4Z4aEW2P5GiZYYwaqbfpwrpgKU4OL WuCPVczM28 cXTfYCotIr7xc4E8q602CFNsRPJqeG58Z f7wrFhzZWBeoFBYxB3hsjuui8mrzajkZs AwMDAwMDt0 NMk5HYYycOffFsPiKZY6MrL9GHL9eBFeh P0leNlhnsuqgN6qSsd+GvNlKAYqgsF1V5 UyAvy9WTUy wFlqMN3woJVvKYfeEh1pyMgylHsgQC3oI UOsbireATDliX2wDZXmcLZabAbdNS7hBC Qcgwzyv378 JcWeMAL2JUMneRVnF1UffM8gNhAeTJLjB ZSgA8AmnWLwORquS998CVagVpM2EYPjrs BuP8SiKOKc fVsiWfI2b0K3Dd6VWX7TMTZ2O4YpQrv4J AQzaDluWF8vqXVgOFxpQx9bbUambVtnKT 4wNTBpbjtw KIGiiV9vEYBmyCZecTcaUT7hQDVfbkxvq 573SiJwPTE7BFKulWOaN1AtrB0qLyGcWI GmYJDmG6Jy fEOyQDvrD606VJjvVmX7SGMeatDuJ5UdT NLzwRbcYjU2y0S6Qs9DlOEtW4BdC6n5Q2 RkPjwvdHI+ JK16SFEtXF13sWWixIRbr4xeqCh6FgHdX WEmTTL9rDwtQRuog2NdZNRtI49yvXLsm4 U9UPHleZxd pECtSfZeuRK4gE2vDWfvevejw8jlyffbI xhnc8yhtx08fO24X92sLPpaUGCrHSYoXA UiIHZhbGln fq6hgV6zIk0+IJBxfSW5sXK4yV6sYmOfJ vM0HFsgV227NpNdwRLsGmuuu6ykb2flrZ r9NnEgVAOf gtZezVxtACE9i9LdTu27M15qNWkxNRXdY OQeHCZlLQToqTrxtr6usL3xBf5+PC9jb2 lrou95bB82 dHI+ULTlYDA3nVgiTPifRYDtnZ9hERodV hG1KVYqFvUrdX99eSMpYCodSv3xzDdywD ygVD1zNHRr wherk851QcGtz5kpUCYwvSDyHXdiLWQ8X 96pc3F6QPSnRVUyQGW5xDY7uY5bpZijch ogbGVmdDsg ajLmuCjwSHqqPWqqZ734IRCohYxvGsIxs NYgE9lxywUFZR9fNndopUS+OCWrUTW1nP xlPSdwYWRk qC0hXUGnL9p7UuVuQjT7XMlbY0RgbpC8R JAgaKDxUNSpoYJAeQ7gwxjud1tqmcwkSn AwMDAwMDt0 GGk0HYFwqDayRyUoFKY6VsW3XZZ9kBRnt D4jiOjccxqkmE2jKnq+RklOOjwvdGQ+PH EmBYA9zCld LLbpUAWznB1nVUCbL8i5XeUuZuG7JTopB 5YfbiA6JQElyBQzRUAjmLFMaX1zzthco0 xvcjogIzAw RXLuEEs9ELk0KXDcqTxiNjQsAFF8BnC3V MS5bPLbnV9bdPrrmgruzB1sBer+TVJOOj wvdGQ+PHRk LDC4iOoyRNblUCZspB5rIETfY5s6RsTpM zH4OObuQ9AteoM8IVTzkEFkGTGbhJJGaA 1reftkz2iv smrtJnMkNBZcGSb7QPh9IYLyoHzvWmDkQ VR2NoV9IWR9cCUegS3ljCyvneahcG3oOf c+MQS5SZA0 CK26VR29E3JcLigatVDltEE+PHRhYmxlI KgtLDPlCEghTDSwJoAqbMsmRP1gQa2nVQ VyLWNvbGxh cHN (more content not included)... Normal [facility] ED Clinical Summaryon 2023 ED Clinical Summary [facility] - Emergency Department [address] [place] [address] ED Clinical Summary PERSON INFORMATION Name: ANJU PISANO Age: 63 Years Sex: FEMALE : 1960 MRN: Acct#: Visit Reason: Closed head injury without LOC; Knee pain-swelling; Fall; FALL/KNEE PAIN Arrival: 11/20/2023 18:12:43 Discharge: 11/20/2023 19:57:00 LOS: 000 01:45 Check In: 11/20/2023 18:12:43 Checkout:11/20/2023 19:57:00 Address: [address] [place] [address] PCP: Maurizio Penny DO PROVIDER INFORMATION Provider Role Assigned Unassigned Cyndie Pedraza SOCIAL SERVICES COORDINATOR Nurse 11/20/2023 18:16:48 Livan Andrade MD ED Provider 11/20/2023 18:20:26 Jaylyn Bishop SOCIAL SERVICES COORDINATOR Nurse 11/20/2023 19:07:19 VITALS INFORMATION Vital Sign [...] 90 tab(s), 3 Refill(s) Documented Medications Documented [place] Thyroid 60 mg oral tablet: 60 mg, [...] Family/ Social History Medical history: Resolved Tumor ([id number]): 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 Resolved. Dental infection ([id number]): Resolved. Diverticulitis (548582250): Resolved., Reviewed as docume (more content not included)... Normal [facility] ED Note - Physicianon 2023 ED Note [...] 90 tab(s), 3 Refill(s) Documented Medications Documented [place] Thyroid 60 mg oral tablet: 60 mg, [...] Family/ Social History Medical history: Resolved Tumor ([id number]): 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 Resolved. Dental infection ([id number]): Resolved. Diverticulitis (008735927): Resolved., Reviewed as documented in chart. Surgical history: Joint replacement ([id number]) on 12/09/2018 at 58 Years. Comments: 01/28/2019 9:12 Nicole Parnell Right knee Joint replacement ([id number]) on 09/09/2018 at 58 Years. Comments: 01/28/2019 9:12 Nicole Parnell left knee Bone density scan ([id number]) on 04/15/2018 at 57 Years. Arthroscopy of knee ([id number]) on 10/16/2017 at 57 Years. Mammogram ([id number]) on 12/06/2015 at 55 Years. Hysterectomy ([id number]). Cholecystectomy (01428785). section ([id number]). Comments: 02/14/2017 22:25 ROULAT - Gracie Eddy 1992 Tumor ([id number]). Comments: 06/27/2017 13:24 JAZMINE - Frida Salinas RN per patient to the right rib 02/14/2017 22:25 EDT - Gracie Eddy Arthroscopy of knee ([id number]). Comments: 06/27/2017 13:24 JAZMINE - Frida Salinas RN left knee, Reviewed as documented in chart. Family history: Patient was adopted. Alcohol user Mother Diabetes mellitus type II Father Heart attack Father Substance user Mother , Reviewed as documented in em (more content not included)... [facility] ED Note-Nursingon 11-20-2023 ED Note-Nursing Pt brought to ED RM 4 C/O a fall, Pt hit her head and check on the left side on a wood post, no loss of consciousness. Pt left knee is swollen , deformed. Pt stated I had two knee replacement in this knee, the last one was 2 years ago at [facility]. Pt recieved 50 of fetynal IM in EMS. Pt stated it really took the pain away Pulses are bounding in the Paula pedal and post tib. Pt is A/Ox4. call light within reach. Son is at bedside [facility] ED Patient Summaryon 024 ED Patient Summary [facility] - Emergency Department [address] [place] [address] PATIENT DISCHARGE INSTRUCTIONS Patient Information Name: ANJU PISANO Age: 63 Years Date of : 1960 Reason For Visit: Closed head injury without LOC; Knee pain-swelling; Fall; FALL/KNEE PAIN Arrival Time: 11/20/2023 18:12:43 Primary Care Physician: Maurizio Penny DO Attending Physician: Livan Andrade MD Comment: Visit Diagnosis: Diagnoses This Visit Closed head injury without LOC ([id number]) Contusion of knee, left (S80.02XA) Fall ([id number]) Fall on same level from tripping (W01.0XXA) Forehead contusion (S00.83XA) Knee pain-swelling ([id number] 2AE8) The Pharmacy at [facility] is open Sunday through Sunday from 9A [...] alcohol and/or drug addiction problems; contact the [facility] 01/01 Crisis Hotline -Text 4EIFU to 062464. If you received any narcotics, sedation, or [...] legal documents With: Address: When: Maurizio Penny [address] [place] [address] Business (1) Within 3 to 5 days Comments: Reviewed discharge care instruction. Continue with therapy as outlined by Dr. Andrade. Use immobilizer and Derek wrap for support. May use cane, walker or crutches to help reduce weightbearing. Increase activity as tolerated. May apply cold compress, 20 minutes every 2-3 hours for pain and swelling. Elevate leg when possible. Take Bradford as needed for severe pain Contact your [...] and treatment you received today in the [facility] Emergency Department were for an urgent problem and are not intended as complete care. It is important for you to follow up with a doctor, nurse practitioner, or physician?s assistant professor of psychology for ongoing care. If your symptoms become [...] so we can reach you if necessary. [facility] Emergency Department has provided you with a complete list of medications post discharge. Please inform your crabbing machine operator/provider of your visit and for further instruction on these medications. Any specific questions regarding your chronic medications and dosages should be discussed with your primary care physician(s) and/or pharmacist. New Medications [facility] [id number], [address], [place] [id number], [phone] acetaminophen-hydrocodone (acetaminophen-hydrocodone 325 mg-5 mg oral tablet) [...] mg oral table (more content not included)... Normal [facility] Progress Note - Nurseon - Progress Note - Nurse Derek wrap and [...] on: 11/20/2023 20:10 EDT] Jaylyn Bishop RN [facility] XR Knee Complete Lefton 11-09 XR Knee [...] DO 11/20/23 8:07 pm Technologist: Rosemary GAMINO [facility] COMPLETE BLOOD COUNTon 10-09 Erythrocyte distribution width (RBC) [Ratio] 13.1 % Normal 11.5-15.0 [facility] Comment on above: Performed By: #### DEVIN, 45959-1, CBC, 331-1, THYR #### [facility] ([id number]) [address], [address] [place] [address] Hematocrit (Bld) [Volume fraction] 40.9 % Normal 35-47 [facility] Comment on above: Performed By: #### DEVIN, 59489-0, CBC, 24 331-1, THYR #### [facility] ([id number]) [address], [address] [place] [address] Hemoglobin (Bld) [Mass/Vol] 14.1 g/dL Normal 11.7-15.5 [facility] Comment on above: Performed By: #### CMP, 21504-2, CBC, -1, THYR #### [facility] ([id number]) [address], [address] [place] [address] MCH (RBC) [Entitic mass] 28.8 pg Normal 27-34 [facility] Comment on above: Performed By: #### CMP, 02590-2, CBC, -, THYR #### [facility] ([id number]) [address], [address] [place] [address] MCHC (RBC) [Mass/Vol] 34.4 g/dL Normal 32-36 [facility] Comment on above: Performed By: #### CMP, 73305-3, CBC, -1, THYR #### [facility] ([id number]) [address], [facility] [address] [place] [address] MCV (RBC) [Entitic vol] 84 fL Normal 80-100 [facility] Comment on above: Performed By: #### CMP, 07243-3, CBC, -, THYR #### [facility] ([id number]) [address], [facility] [address] [place] [address] Platelet mean volume (Bld) [Entitic vol] 7.5 fL Normal 7-12 [facility] Comment on above: Performed By: #### CMP, 64463-0, CBC, -, THYR #### [facility] ([id number]) [address], [facility] [address] [place] [address] Platelets (Bld) [#/Vol] 315 10*3/uL Normal 150-450 [facility] Comment on above: Performed By: #### CMP, 20380-4, CBC, 331-1, THYR #### [facility] ([id number]) [address], [address] [place] [address] RBC COUNT 4.88 X10E12/L Normal 3.80-5.20 [facility] Comment on above: Performed By: #### CMP, 24190-6, CBC, 24 331-1, THYR #### [facility] ([id number]) [address], [address] [place] [address] WBC (Bld) [#/Vol] 10.4 10*3/uL Normal 4.0-11.0 [facility] Comment on above: Performed By: #### CMP, 09008-3, CBC, 24 331-1, THYR #### [facility] ([id number]) [address], [address] [place] [address] COMPREHENSIVE METABOLIC PANE Malcom 10-10-2023 Albumin [Mass/Vol] 4.7 g/dL Normal 3.2-5.3 [facility] Comment on above: Performed By: #### DEVIN, 63424-7, CBC, 24 [facility]-1, THYR #### [facility] ([id number]) [address], [address] [place] [address] ALP [Catalytic activity/Vol] 95 U/L Normal 39-130 [facility] Comment on above: Performed By: #### CMP, 18421-7, CBC, 24 331-1, THYR #### [facility] ([id number]) [address], [address] [place] [address] ALT [Catalytic activity/Vol] 14 U/L Normal 0-31 [facility] Comment on above: Performed By: #### CMP, 14318-3, CBC, 24 331-1, THYR #### [facility] ([id number]) [address], [address] [place] [address] Anion gap [Moles/Vol] 9 mmol/L Normal 5-15 [facility] Comment on above: Performed By: #### CMP, 83306-4, CBC, 24 331-1, THYR #### [facility] ([id number]) [address], [address] [place] [address] AST [Catalytic activity/Vol] 16 U/L Normal 0-41 [facility] Comment on above: Performed By: #### CMP, 33436-4, CBC, 24 331-1, THYR #### [facility] ([id number]) [address], [address] [place] [address] Bilirubin [Mass/Vol] 0.8 mg/dL Normal 0.3-1.2 [facility] Comment on above: Performed By: #### CMP, 41991-3, CBC, 24 331-1, THYR #### [facility] ([id number]) [address], [address] [place] [address] Calcium [Mass/Vol] 9.9 mg/dL Normal 8.5-10.5 [facility] Comment on above: Performed By: #### CMP, 19913-8, CBC, 24 331-1, THYR #### [facility] ([id number]) [address], [address] [place] [address] Chloride [Moles/Vol] 106 mmol/L Normal 98-109 [facility] Comment on above: Performed By: #### CMP, 63296-9, CBC, 24 331-1, THYR #### [facility] ([id number]) [address], [address] [place] [address] CO2 [Moles/Vol] 28 mmol/L Normal 22-32 [facility] Comment on above: Performed By: #### CMP, 00480-3, CBC, 24 331-1, THYR #### [facility] ([id number]) [address], [address] [place] [address] Creatinine [Mass/Vol] 0.77 mg/dL Normal 0.40-1.00 [facility] Comment on above: Result Comment: METHOD TRACEABLE TO IDMS STANDARD Performed By: #### [place], 83384-2, CBC, 67228-6, THYR #### [facility] ([id number]) [address], [address] [place] [address] GFR/1.73 sq M.predicted among non-blacks MDRD (S/P/Bld) [Vol rate/Area] 87 mL/min/{1.73_m2} Normal >59 [facility] Comment on above: Result Comment: Reported eGFR is based on the CKD-EPI 2020 equation that does not use a race coefficient. Performed By: #### [place], 24378-3, CBC, 02151-8, THYR #### [facility] ([id number]) [address], [address] [place] [address] Glucose [Mass/Vol] 101 mg/dL High 65-99 [facility] Comment on above: Performed By: #### DEVIN, 48743-9, CBC, 24 331-1, THYR #### [facility] ([id number]) [address], [address] [place] [address] Potassium [Moles/Vol] 3.6 mmol/L Normal 3.5-5.0 [facility] Comment on above: Performed By: #### DEVIN, 92153-5, CBC, 24 331-1, THYR #### [facility] ([id number]) [address], [address] [place] [address] Protein [Mass/Vol] 7.1 g/dL Normal 6.0-8.0 [facility] Comment on above: Performed By: #### CMP, 43946-5, CBC, 24 331-1, THYR #### [facility] ([id number]) [address], [address] [place] [address] Sodium [Moles/Vol] 143 mmol/L Normal 134-146 [facility] Comment on above: Performed By: #### DEVIN, 59765-4, CBC, 24 331-1, THYR #### [facility] ([id number]) [address], [address] [place] [address] Urea nitrogen [Mass/Vol] 12 mg/dL Normal 5-27 [facility] Comment on above: Performed By: #### DEVIN, 36426-8, CBC, 24 331-1, THYR #### [facility] ([id number]) [address], [facility] [address] [place] [address] Lipid 1996 panelon 4 Cholesterol [Mass/Vol] 151 mg/dL Normal 150-200 [facility] Comment on above: Performed By: #### DEVIN, 66674-3, CBC, 24 331-1, THYR #### [facility] ([id number]) [address] [address] Cholesterol in HDL [Mass/Vol] 42 mg/dL Normal >39 [facility] Comment on above: Result Comment: HDL <40 mg/dL - High Risk HDL > or = 40mg/dL- Desirable HDL >60 mg/dL - Negative Risk Performed By: #### [place], [address]-8, CBC, 90043-2, THYR #### [facility] ([id number]) [address], [address] [address] Cholesterol in LDL [Mass/Vol] 65 mg/dL Normal <130 [facility] Comment on above: Result Comment: LDL <100 mg/dL - Desirable LDL >160 mg/dL - High Risk Performed By: #### C MP, 02628-9, CBC, 52709-1, THYR #### [facility] ([id number]) [address], [address] [place] [address] Cholesterol in VLDL [Mass/Vol] 44 mg/dL High 0-30 [facility] Comment on above: Performed By: #### CMP, 40765-2, CBC, 331-1, THYR #### [facility] ([id number]) [address] [facility], [address] [place] [address] CHOLESTEROL:HDL 3.6 Normal 1.0-5.0 [facility] Comment on above: Performed By: #### CMP, 37960-6, CBC, 331-1, THYR #### [facility] ([id number]) [address] [facility], [address] [place] [address] Triglyceride [Mass/Vol] 220 mg/dL High 27-150 [facility] Comment on above: Performed By: #### CMP, 61016-1, CBC, 331-1, THYR #### [facility] ([id number]) [address] [facility], [address] [place] [address] Office Visiton 10-10-2023 Follow-up visit [id number] Anju Pisano 1960 F Date Provider Department Center 10/10/2023 [id number] PAT [facility] ENDOCR [facility] No family history on file Level of Service:14602 OR OFFICE/OUTPATIENT NEW LOW MDM 30 MINUTES Reason for Visit and Comments: New Patient [Other] - DM2 States had A1C done 3 wks ago at PCP with Katja Wall, 5.5% per pt Has meter, unsure what its called & did not bring today, states between 99-104 for sugar recently Concerns: MetFormin started off with 3x daily, now BID but is having more diarrhea, no just one daily. Symptoms better but wants to know if can be switched off of metformin to different medication David savage of [facility] THYROID PROFILEon 10-10-2023 Free T4 [Mass/Vol] 0.60 ng/dL Low 0.61-1.60 [facility] Comment on above: Performed By: #### CMP, 64877-1, CBC, 24 331-1, THYR #### [facility] ([id number]) [address], [address] [place] [address] TSH 3.07 uIU/mL Normal 0.49-4.67 [facility] Comment on above: Performed By: #### CMP, 45024-8, CBC, 24 331-1, THYR #### [facility] ([id number]) [address], [address] [place] [address] Vitamin D+Metabolites [Mass/ Vol]on 10-10-2023 VITAMIN D 25 HYD TOT 67.1 ng/mL Normal 30-100 [facility] Comment on above: Result Comment: Vitamin D status 25 [place] Vitamin D Deficiency <20 ng/mL Insufficiency 20-29 ng/mL Sufficiency 30-100 ng/mL Toxicity >100 ng/mL NOTE: A pediatric reference range has not been established by the warp drawer of this kit. The [place] [employer] recommends a Vitamin D level of = or >20ng/mL in infants and children. Performed By: #### C [place], 71934-1, CBC, 57178-4, THYR #### [facility] ([id number]) [address], [address] [place] [address] MG MAMM SASCHA DIAG FUon 2021 MG MAMM SASCHA DIAG FU Patient: ANJU PISANO Exam Date: 02/24/2022 : 1960 Gender:F Ordering : JOSE D YUMIKO Admission #: [id number] Family : Order #: [id number] CLICK HERE TO VIEW EXAM RADIOLOGY REPORT PROCEDURE: MAMMOGRAM BILATERAL DIGANOSTIC DIGITAL FOLLOW UP, 02/24/2022, 09:08 ULTRASOUND BREAST BILATERAL LIMITED, 02/24/2022, 09:46 COMPARISON: MG MAMM SCREEN 3D SASCHA CAD, 01/04/2022. INDICATIONS: Mammography abnormal Calculator Name NCI Breast Cancer Risk Assessment Tool 5 Year Breast Cancer Risk 2.00% Lifetime Breast Cancer Risk 10.00% Personal Breast Cancer No Personal Ovarian Cancer No Treatments None Family Cancers None LOCATION: [facility] BREAST COMPOSITION: Scattered areas fibroglandular density. FINDINGS: [...] MD on 02/24/2022 at 10:38 Normal [facility] US BREAST SASCHA LIMITEDon 09- US BREAST SASCHA LIMITED Patient: ANJU PISANO Exam Date: 02/24/2022 : 1960 Gender:F Ordering : JOSE D YUMIKO Admission #: [id number] Family : Order #: [id number] CLICK HERE TO VIEW EXAM RADIOLOGY REPORT PROCEDURE: MAMMOGRAM BILATERAL DIGANOSTIC DIGITAL FOLLOW UP, 02/24/2022, 09:08 ULTRASOUND BREAST BILATERAL LIMITED, 02/24/2022, 09:46 COMPARISON: MG MAMM SCREEN 3D SASCHA CAD, 01/04/2022. INDICATIONS: Mammography abnormal Calculator Name NCI Breast Cancer Risk Assessment Tool 5 Year Breast Cancer Risk 2.00% Lifetime Breast Cancer Risk 10.00% Personal Breast Cancer No Personal Ovarian Cancer No Treatments None Family Cancers None LOCATION: [facility] BREAST COMPOSITION: Scattered areas fibroglandular density. FINDINGS: [...] Alarcon MD on 02/24/2022 at 10:38 Normal [facility] XR DEXA BONE DENSITYon 02-24 XR DEXA [...] by: DARREN ALARCON Date: 2022-02-24 16:14 Normal [facility] MG MAMM SCREEN 3D SASCHA CADon 01-04-2022 MG MAMM SCREEN 3D SASCHA CAD Patient: ANJU PISANO Exam Date: 01/04/2022 : 1960 Gender:F Ordering : JOSE D CALDERON Admission #: [id number] Family : Order #: [id number] CLICK HERE TO VIEW EXAM RADIOLOGY REPORT PROCEDURE: MAMMOGRAM SCREENING 3D BILATERAL CAD COMPARISON: None. INDICATIONS: Screening for malignant neoplasm of breast Calculator Name NCI Breast Cancer Risk Assessment Tool 5 Year Breast Cancer Risk 2.00% Lifetime Breast Cancer Risk 10.00% Personal Breast Cancer No Personal Ovarian Cancer No Treatments None Family Cancers None LOCATION: [facility] BREAST COMPOSITION: Scattered areas fibroglandular density. FINDINGS: [...] Mcdonald M.D. on 01/05/2022 at 16:00 Normal [facility] Initial Visit ([facility]thopaedic [facility])on 10-29-2020 Initial Visit (Orthopaedic Surgery) Diagnoses/Problems Assessed [...] No effusion SILT in a shena/saph/per/tib distribution / knee extension/df/pf/ehl dorsalis pedis and posterior tibial [...] 12/11/2017 2:26:46 PM Current Meds Medication NameInstruction [place] Thyroid 60 MG Oral Tablet DULoxetine HCl [...] tablet ... Vitamin D (Ergocalciferol) 1.25 MG (91614 UT) Oral Capsule Signatures Electronically signed by : Maurizio Kaplan MD; Nov 02 2020 5:14PM EST (Author) Normal [employer] KNEE , 1 OR 2 VIEWSon 2020 KNEE , 1 OR 2 VIEWS Patient Name: ANJU PISANO STUDY: KNEE; 1 OR 2 VIEWS; 10/29/2020 11:34 am INDICATION: BILATERAL KNEE PAIN. COMPARISON: 12/11/2017 ACCESSION NUMBER(S): [id number] ORDERING CLINICIAN: MAURIZIO KAPLAN FINDINGS: Bilateral knees, three views of each Bilateral total knee arthroplasties. No periprosthetic fracture or lucency seen. Small effusions bilaterally. No dislocation. IMPRESSION: No hardware failure about bilateral total knee arthroplasty Electronically signed by: JEAN MICHEL MD Normal [facility] KNEE , 1 OR 2 VIEWS Patient Name: ANJU PISANO STUDY: KNEE; 1 OR 2 VIEWS; 10/29/2020 11:34 am INDICATION: BILATERAL KNEE PAIN. COMPARISON: 12/11/2017 ACCESSION NUMBER(S): [id number] ORDERING CLINICIAN: MAURIZIO KAPLAN FINDINGS: Bilateral knees, three views of each Bilateral total knee arthroplasties. No periprosthetic fracture or lucency seen. Small effusions bilaterally. No dislocation. IMPRESSION: No hardware failure about bilateral total knee arthroplasty Electronically signed by: JEAN MICHEL MD Normal [facility] AFINION A1Con 05-13-2019 HbA1c (Bld) [Mass fraction] 6.3 G/DL High 4.5-6.0 [facility] Comment on above: Performed By: #### 797, 4210, 6740, 4560 #### [facility] Unless Otherwise Noted [address] [place] [address] / COLA #4724/CLIA # [id number] FT3on 05-13-2019 FT3 4.60 pg/mL Normal 2.71-6.16 [facility] Comment on above: Performed By: #### 750, 4500, 4510, 4520 #### [facility] Unless Otherwise Noted [address] [place] [address] / [facility] #4724/CLIA # [id number] FT4on 05-13-2019 Free T4 [Mass/Vol] 0.84 ng/dL Normal 0.64-1.79 [facility] Comment on above: Performed By: #### 750, 4500, 4510, 4520 #### [facility] Unless Otherwise Noted [address] [place] [address] / COL[facility] #4724/CLIA # [id number] TSHon 05-13-2019 TSH Qn 3.16 uIU/ml Normal 0.47-4.68 [facility] Comment on above: Performed By: #### 750, 4500, 4510, 4520 #### [facility] Unless Otherwise Noted [address] [address] / COLA #4724/CLIA # [id number] History and Physical - Surgi renny Update < 30 dayson 06-05-2018 History and Physical - Surgical Update < 30 days History & Physical Reviewed:/Lactating: Are You no (1) Are You Currently Breastfeedingno (1) I have reviewed the History and Physical dated: 27-Slh-2017Kqyxsfq and Physical reviewed and relevant findings noted. [...] - Preop v2 06/05/2018 07:50 AM Normal [facility] Homegoing Instructionson Homegoing Instructions Additional Instructions:Medication Information: Medication InstructionsThere were no changes to your routine home medications from this visit.Continue to follow your current regimen. Do not drive or operate machinery iftaking narcotic pain medication. Take as directed. Appointments: Service/Clinician NameCall [phone] to schedule your 2-4 week follow upappointment. Belongings Returned: Valuables/Medications/Belongings Returnedyes Electronic Signatures:Tequila Torres (RN) (Signed 05-Jun-2018 10:48)Authored: Additional InstructionsKarina Godinez (ADULT NURSE PRACTITIONER-COAT JOINER) (Signed 05-Jun-2018 08:37)Authored: Additional Instructions Last Updated: 05-Jun-2018 10:48 by Tequila TorresRN) Normal [facility] OPERATIVE REPORTon 8 OPERATIVE REPORT [place] [id number] Patient Name: BAO PISANON: [id number]: 1960Encounter Number: [id number] of Service: 06/05/2018Patient Location: AOR AOR0 [id number] Type: OSurgeon: LINDA Balbuenaeport Type: Operative ReportsPREOPERATIVE DIAGNOSIS: Bilateral knee osteoarthritis.POSTOPERATIVE DIAGNOSIS: Bilateral knee osteoarthritis.OPERATION/PROCEDUR E: Bilateral genicular nerve block.ANESTHESIA: Local with IV sedation.SURGEON: Dr. Jd Timmons.SPICE MILLER(S): Dr. Ozzie ParikhCOMPLICATIONS: Apparently none.LOCATION: [facility].PROCEDURE NOTE: The patient was identified in the [...] PM ESTTT: 06/06/2018 04:46 AM ESTDICTATION NUMBER: [id number] JOB NUMBER: [id number]:Maurizio Perry MDElectronically Signed by Dr. Jd Timmons 06/12/2018 01:25:04 PM Normal [facility] Patient Profile - Preop v2on 06-05-2018 Protein mass conc Profile:Initial Info:How to be AddressedLyndaSpoken Language PreferredEnglishSource of InformationpatientAre you currently using the Personal Electronic Health Record or MYUHCAREnoAre you interested in learning more about [facility] for the management of yourhealthnot at this timeStated Reason for AdmissionBilateral Knee InjectionsPrimary Contact Name and NumberJeff HusbandLimitations on Visitors/Phone CallsnonePatient Belongingsremains with patientMedications Brought to Hospitalno General Health:Weight in kg98.4 kilogram(s)Weight in ulm611 pound(s)Weight MethodstatedHeight in cm154.9 centimeter(s)Height in feet5 [...] for HIGH RISK.Are there any cultural, spiritual, catholic practices/values/needs that areimportant for us to knownoDo you want a visit/item from Pastoral CarenoWould you like your Dispatcher Bus And Trolley/Dog And Cat Food Cook notifiednoPain Scalenumerical 0-10Pain Scale Educationteaching providedCurrent Pain Level10 = SevereAcceptable Pain Level10 = SevereExpression of Pain (nonverbal)verbalizationChronic PainyesChronic Lower Extremity pain locationknee Information Review: Allergies, Home Meds and Significant Events have been Reviewed and Verifiedwith Patient/Familyyes Allergy, Intolerance, Adverse Event: Allergies: No Known Allergies: Active Significant Events:05-Jun-2018 Gallbladder: Past Surgical History, [id number] C Section: Past Surgical History, [id number] Left Knee: Past Surgical History, [id number]-[id number] 2 surgeries Right Knee: Past Surgical History, [id number]-5452 Hysterectomy: Past Surgical History, [id number]-Zts-3734 HTN: Past Medical History, Active Electronic Signatures:Tequila Torres) (Signed 05-Jun-2018 08:09)Authored: Profile, Additional Information Last Updated: 05-Jun-2018 08:09 by Tequila Torres (RN) Normal [facility] Preop Checkliston 06-05-2018 Preop Checklist Preop Checklist:Preo p Checklist: Arrival [id number] Arrival Time07:49 Procedure TypeBilateral Knee Injections NPO [id number]-[id number] 22:30 ID Band Onyes Allergy Bandno known [...] / Communication: Language / CommunicationEnglish Electronic Signatures:Tequila Torres) (Signed 05-Jun-2018 08:11)Authored: Preop Checklist Last Updated: 05-Jun-2018 08:11 by Tequila Torres (RN) Normal [facility] Vital Signs Date Time Vital Sign Value Performing Clinician Faci laquita 03-25-2020 11:03-0400 BMI (Body Mass Index) 45.7 kg/m2 [facility] 03-25-2020 11:03-0400 Body Temperature 97 [degF] [facility] 03-25-2020 11:03-0400 Body weight 106.14 kg [facility] 03-25-2020 11:030400 Height 152.4 cm [facility] Encounters Encounter Date Encounter Type Care Provider Facility Start: 02-13-2024 End: 02-13-2024 Emergency department patient visit Richa Carpenternell Facility:[facility] Start: 01-16-2024 End: 01-16-2024 ambulatory EROS ROGERS Not Available Start: 01-10-2024 End: 01-10-2024 ambulatory [facility] Start: 11-20-2023 End: 11-20-2023 Emergency department patient visit Livan Andrade Facility:[facility] Start: 10-23-2023 End: 10-23-2023 ambulatory EROS ROGERS Not Available Start: 10-10-2023 End: 10-11-2023 ambulatory [facility] Start: 10-10-2023 End: 10-10-2023 ambulatory [facility] Start: 08-14-2023 Lu donovan MD Work Phone: [facility] Comment on above: Type 2 diabetes gonsalo itus without complication, without long- term current use of insulin ([facility] Start: 01-25-2023 ambulatory QI SHAMMO Facility:[facility] Start: 02-24-2022 End: 02-25-2022 ambulatory JOSE D YUMIKO Facility:[facility] Start: 01-04-2022 End: 01-05-[address] Maurizio Mcdonald Facility:[facility] Start: 10-29-2020 Office outpatient ne w 30 minutes Maurizio Penny Work Phone: [id number] [address] Work Phone: Start: 03-25-2020 End: 03-25-2020 Office outpatient new 30 minutes Rudi Rose Work Phone: [facility] Comment on above: History of total kne e arthroplasty, bilateral (Primary Dx); Pain due to bilateral hip joint prostheses, initial encounter Start: 03-25-2020 End: 03-25-2020 Subsequent hospital visit by physician Rudi Rose Work Phone: [facility] Start: 03-05-2019 Registered Recurring Maurizio Penny -[facility] [place] Start: 02-19-2019 End: 02-19-2019 Patient encounter procedure Maurizio Penny -[facility] Start: 01-22-2019 End: 01-22-2019 Patient encounter procedure Maurizio Penny -[facility] Start: 12-16-2018 End: 12-16-2018 Emergency department patient visit Maurizio Penny -Emergency Room Start: 06-05-2018 End: 06-05-2018 Patient encounter procedure Al-Trupti Timmons Facility[place] Procedures Date Procedure Procedure Detail Performing Clinician Start: 02-26-2023 Microalbumin [Mass/volume] in Urine by Test strip Abdifatah Montesinos MD Work Phone: Start: 02-19-2019 X-ray of right knee Maurizio Penny Start: 01-22-2019 X-ray of right knee Mauriziolaura Penny Start: 06-05-2018 Injection anes other peripheral nerve/branch Al-Trupti Timmons section Maurizio pimentel Work Phone: Gallbladder Surgery Maurizio Penny Work Phone: History of operative procedure on knee S/P arthroscopic partial medial meniscectomy Maurizio Penny Work Phone: Hysterectomy Maurizio goyal Work Phone: Knee Surgery Maurizio goyal Work Phone: Plan of Treatment Date Care Activity Detail Author Start: 02-27-2024 Adult BMI Screening [facility] Start: 02-27-2024 Tobacco Screening [facility]ening [facility] Start: 02-27-2024 Urine screening for protein [facility]rine [facility]albumin [facility] Start: 10-31-2023 End: 10-31-2023 Patient encounter procedure 10/31/2023 9:00 AM EDT [facility] [address] [place] [address] Abdifatah Montesinos MD [address] [place] [address] [facility] Start: 09-04-2023 End: 09-04-2023 Patient encounter procedure 09/04/2023 9:30 AM EDT Office Visit [facility] [address] [place] [address] Gaby Cornell, ADULT NURSE PRACTITIONER-COAT JOINER [address] [place] [address] [facility] Start: 02-09-2023 COVID-19 Vaccine ( season) COVID-19 Vaccine ( season) [facility] Start: 02-09-2023 Influenza vaccination Influenza Vaccine [facility] Start: 02-10-2020 Influenza vaccination INFLUENZA VACCINE (#1) [facility] Start: 2011 Administration of varicella zoster vaccine Zoster (Shingles) Vaccine (1 of 2) [facility] Start: 2011 Colonoscopy COLORECTAL CANCER SCREENING DISCUSSION [facility] Start: 2011 Zoster vaccine hzv live for subcutaneous use ZOSTER (SHINGLES) VACCINE (1 of 2) [facility] Start: 2001 Fasting lipid profile LIPID SCREENING [facility] Start: 2001 Screening mammography MAMMOGRAM SCREENING DISCUSSION [facility] Start: 1982 Screening for malignant neoplasm of cervix CERVICAL CANCER SCREENING DISCUSSION [facility] Start: 1980 DTaP,Tdap and Td Vaccines (1 - Tdap) DTaP,Tdap and Td Vaccines (1 - Tdap) [facility] Start: 1980 Third diphtheria, tetanus and acellular pertussis (DTaP) vaccination TDAP (ADULT) [facility] Start: 1979 Adult BMI Follow Up Plan Adult BMI Follow Up Plan [facility] Start: 1979 Diabetic foot examination Diabetic Foot Exam [facility] Start: 1979 Tetanus vaccination TETANUS [facility] Start: 1974 HIV screening HIV SCREENING DISCUSSION [facility] Start: 1973 Depression Screening Depression Screening [facility] Start: 1961 Glaucoma screening Diabetic Ophthalmology Exam [facility] Start: 1961 Hepatitis C antibody, confirmatory test HEPATITIS C VIRUS SCREENING [facility] Start: 1961 TSH Qn TSH [facility] Radiography for bone length studies XR BONE LENGTH STUDY Imaging Routine History of total knee arthroplasty, bilateral 03/25/2020 11:00 AM EDT [facility] X-ray of left knee XR KNEE LEFT 3 VIEWS Imaging Routine History of total knee arthroplasty, bilateral 03/25/2020 11:00 AM EDT [facility] X-ray of right knee XR KNEE RIGH T 3 VIEWS Imaging Routine History of total knee arthroplasty, bilateral 03/25/2020 11:00 AM T [facility] Immunizations Immunization Date Immunization Notes Care Provider Fa [facility] 02-03-2023 influenza virus vaccine, unspecified formulation Abdifatah Montesinos MD Work Phone: [facility] Payers Date Payer Category Payer Unknown [id number] 2023 Unknown [id number] 2021 Unknown 2021 Unknown [id number] 2019 Unknown [employer] [id number] 2019-Present [id number] 1960 Unknown [id number] 1960 Unknown [id number] 1960 Unknown [id number] 1961 Unknown [id number] 1960 Unknown [id number] 1961 Unknown [id number] 1961 Unknown [id number] 1960 Unknown [id number] 1960 Unknown [id number] Self-pay Self Pay [id number] Unknown [id number] Unknown Self Pay [id number] Unknown [id number] Social History Date Type Detail Facility Start: 12-16-2018 End: 05-24-2022 Tobacco smoking status NHIS Ex-smoker (finding) [facility] Start: 1960 Sex Assigned At Female F [facility] Start: 03-25-2020 End: 05-24-2022 Tobacco use and exposure Never used [facility] Start: 03-25-2020 Alcohol intake Ex-drinker (finding) [facility] Start: 03-25-2020 Tobacco Comment quit 10 years ago [facility] Start: 1960 Sex Assigned At Not on file A [facility] Start: 07-22-2020 End: 02-26-2023 Never a smoker [facility] History of tobacco use Current smoker 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 Treatment is important to help with symptoms and to prevent the infection from spreading. The general types of dental abscesses are: ? Pulpal abscess. This abscess may form from the inner part of the tooth (pulp). ? Periodontal abscess. This abscess may form from the gum. What are the causes? This condition is caused by a bacterial infection in or around the tooth. It may result from: ? Severe tooth decay (cavities). ? Trauma to the tooth, such as a broken or chipped tooth. What increases the risk? This condition is more likely to develop in males. It is also more likely to develop in people who: ? Have cavities. ? Have severe gum disease. ? Eat sugary snacks between meals. ? Use tobacco products. ? Have diabetes. ? Have a weakened disease-fighting system (immune system). ? Do not brush and care for their teeth regularly. What are the signs or symptoms? Mild symptoms of this condition include: ? Tenderness. ? Bad breath. ? Fever. ? A bitter taste in the mouth. ? Pain in and around the infected tooth. Moderate symptoms of this condition include: ? Swollen neck glands. ? Chills. ? Pus drainage. ? Swelling and redness around the infected tooth, in the mouth, or in the face. ? Severe pain in and around the infected tooth. Severe symptoms of this condition include: ? Difficulty swallowing. ? Difficulty opening the mouth. ? Nausea. ? Vomiting. How is this diagnosed? This condition is diagnosed based on: ? Your symptoms and your medical and dental history. ? An examination of the infected tooth. During the exam, your dental care provider may tap on the infected tooth. You may also need to have X-rays taken of the affected area. How is this treated? This condition is treated by getting rid of the infection. This may be done with: ? Antibiotic medicines. These may be used in certain situations. ? Antibacterial mouth rinse. ? Incision and drainage. This procedure is done by making an incision in the abscess to drain out the pus. Removing pus is the first priority in treating an abscess. ? A root canal. This may be performed to save the tooth. Your dental care provider accesses the visible part of your tooth (crown) with a drill and removes any infected pulp. Then the space is filled and sealed off. ? Tooth extraction. The tooth is pulled out if it cannot be saved by other treatment. You may also receive treatment for pain, such as: ? Acetaminophen or NSAIDs. ? Gels that contain a numbing medicine. ? An injection to block the pain near your nerve. Follow these instructions at home: Medicines ? Take hkwb-kgl-anornzu and prescription medicines only as told by your dental care provider. ? If you were prescribed an antibiotic, take it as told by your dental care provider. Do not stop taking the antibiotic even if you start to feel better. ? If you were prescribed a gel that contains a numbing medicine, use it exactly as told in the directions. Do not use these gels for children who are younger than 2 years of age. ? Use an antibacterial mouth rinse as told by your dental care provider. General instructions ? Gargle with a mixture of salt and water 3?4 times a day or as needed. To make salt water, completely dissolve ??1 tsp (3?6 g) of salt in 1 cup (237 mL) of warm water. ? Eat a soft diet while your abscess is healing. ? Drink enough fluid to keep your urine pale yellow. ? Do not apply heat to the outside of your mouth. ? Do not use any products that contain nicotine or tobacco. These products include cigarettes, chewing tobacco, and vaping devices, such as e-cigarettes. If you need help quitting, ask your dental care provider. ? Keep all follow-up visits. This is important. How is this prevented? ? Excellent dental home care, which includes brushing your teeth every morning and night with fluoride toothpaste. Floss one time each day. ? Get regularly scheduled dental cleanings. ? Consider having a dental sealant applied on teeth that have deep grooves to prevent cavities. ? Drink fluoridated water regularly. This includes most tap water. Check the label on bottled water to see if it contains fluoride. ? Reduce or eliminate sugary drinks. ? Eat healthy meals and snacks. ? Wear a mouth guard or face shield to protect your teeth while playing sports. Contact a health care provider if: ? Your pain is worse and is not helped by medicine. ? You have swelling. ? You see pus around the tooth. ? You have a fever or chills. Get help right away if: ? Your symptoms suddenly get worse. ? You have a very bad headache. ? You have problems breathing or swallowing. ? You have trouble op (more content not included)... [facility] Progress note 01-10-2024 Note Date & Type [...] Diabetes education: [No] Seen by a certified cytotechnologist (CDE) within 12 months Meal plan: [No] Seen by a neon glass bender within 12 months [ ] Consistent carbohydrate [...] satiety [No] Feet numbness/pain/tingling [Yes] Patient seeing farmer diversified crops/component design engineer regularly [No] Patient seeing dentist regularly - has partials [No] Patient seeing varnisher regularly REVIEW OF SYSTEMS Review of Systems [...] 600 mg by mouth., Disp: , Rfl: hxfd-slluw-FUR-bty-nwhwsay-yom 100 mg-100 mcg- 100 mg-100 mg capsule, 1,000 mg., Disp: , Rfl: dapagliflozin propanediol (Farxiga) 5 mg, Take one tablet daily by mouth, Disp: 30 tablet, Rfl: 2 DOCOSAHEXAENOIC ACID ORAL, Take by mouth., Disp: , Rfl: ergocalciferol (Vitamin D-2) 1.25 MG (98172 Units) capsule, , Disp: , Rfl: losartan (Cozaar) 100 mg tablet, 1 tab(s), PO, Daily, # 90 tab(s), 3 Refill(s), Pharmacy: [facility] [id number], TAKE ONE TABLET BY MOUTH DAILY, Disp: [...] 2 diabetes mellitus (more content not included)... [facility] Clinical Note 11-20-2023 Note Date & Type [...] is often the best treatment. ? Taking kxtg-aeh-ftalasi medicines to help take the pain away, if your doctor tells you to take them. ? If there are any cuts, these will need to be repaired as well. ? Any deeper injuries may require treatment and follow up with a specialist, such as a surgeon or fire management specialist. Follow these instructions at home: Managing [...] or lying down. General instructions ? Take bbna-jgc-gmnyprm and prescription medicines only as told by [...] provider. Document Revised: 07/04/2021 Document Reviewed: 07/04/2021 [employer] Patient Education ? 2022 [employer]. Orthopedics Knee Sprain, Adult A knee sprain [...] brace if y (more content not included)... [facility] Progress note 10-10-2023 Note Date & [...] Diabetes education: [No] Seen by a certified cytotechnologist (CDE) within 12 months Meal plan: [No] Seen by a neon glass bender within 12 months [ ] Consistent carbohydrate [...] satiety [No] Feet numbness/pain/tingling [Yes] Patient seeing farmer diversified crops/component design engineer regularly [No] Patient seeing dentist regularly - has partials [No] Patient seeing varnisher regularly REVIEW OF SYSTEMS Review of Systems [...] 600 mg by mouth., Disp: , Rfl: bpkg-jnhrx-BTQ-its-mnmkhnh-nac 100 mg-100 mcg- 100 mg-100 mg capsule, 1,000 mg., Disp: , Rfl: DOCOSAHEXAENOIC ACID ORAL, Take by mouth., Disp: , Rfl: ergocalciferol (Vitamin D-2) 1.25 MG (03925 Units) capsule, , Disp: , Rfl: losartan (Cozaar) 100 mg tablet, 1 tab(s), PO, Daily, # 90 tab(s), 3 Refill(s), Pharmacy: [facility] [id number], TAKE ONE TABLET BY MOUTH DAILY, Disp: [...] hyperglycemia, without long-term current use of insulin ([facility]) - Vitamin D 25 hydroxy; Future - CBC; Fut (more content not included)... [facility] History of Present illness Narrative 11-03-2018 Note [...] not corrected for typographical or grammatical errors.. [id number]-Uhzezkhlcbvv-[id number] 210 Work Phone: Evaluation note Note Date & Type Note Facility Evaluation note Diagnosis Type 2 diabetes mellitus without complication, without long-term current use of insulin ([facility]) documented in this encounter [facility] Instructions Note Date & Type Note Facility Instructions Not on filedocumented in this en counter [facility] Summary Purpose Family History No [...] joint prostheses, initial encounter Rudi Rose MD [address] [place] [id number] Scheduling Instructions . Status Reason Specialty Diagnoses / Procedures Referred By Contact Referred To Contact Pending Review Diagnoses History of total knee arthroplasty, bilateral Procedures XR BONE LENGTH STUDY Rudi oRse MD [address] [place] [id number] Status Reason Specialty Diagnoses / Procedures Referred By Contact Referred To Contact Pending Review Diagnoses History of total knee arthroplasty, bilateral Procedures XR KNEE RIGHT 3 VIEWS Rudi Rose MD [address] [place] [address] Status Reason Specialty Diagnoses / Procedures Referred By Contact Referred To Contact Pending Review Diagnoses History of total knee arthroplasty, bilateral Procedures XR KNEE LEFT 3 VIEWS Rudi Rose MD [address] [place] [address] History of Present Illness * SYDNIE BUSH [...] but [place], she desires more local care. She has [...] loss. I suggested she consult with her senior analyst programmer regarding this. She agrees with this. For [...] we will consider revision arthroplasty for optimal usp management. She agrees with this plan. All [...] file Gets together: Not on file Attends catholic service: Not on file Active member of [...] Narrative Not on file Current Outpatient Medications: [place] Thyroid 60 MG tablet, , Disp: , Rfl: losartan 100 MG tablet, , Disp: , Rfl: oxyCODONE-acetaminophen 5-325 MG per tablet, , Disp: , Rfl: No Known Allergies * Jose Mi LPN - 03/25/2020 10:40 AM EDT Ortho Nurse Patient Intake Room#: 1 Sascha knee pain, TKA done in 2019, pain of 10 plus, has been back to DR Byrne and he referred to Dr Rose Date: 03/25/2020 11:12 AM Patient: Anju Pisano MR#: [id number] : 1960 Age: 59 y.o. Referring Physician: Self, Self Insurance: Payor: [employer] EXCHANGE / Plan: [employer] / Product Type: *No Product type* [...] [x]cane, []bracing Are you followed by a anesthetist? [] [x] Name: Are you followed by pain management? [] [x] Name: Are you followed by any other specialists? [] [x] Name: Outpatient Medications Prior to Visit Medication Sig Dispense Refill [place] Thyroid 60 MG tablet losartan 100 MG tablet oxyCODONE-acetaminophen 5-325 MG per tablet No facility-administered medications prior to visit. Current Outpatient Medications: [place] Thyroid 60 MG tablet, , Disp: , [...] section and content) DATE CREATED AUTHOR 06/12/2018 [facility] DATE CREATED AUTHOR AUTHOR'S ORGANIZ ATION 05/16/2019 [facility] DATE CREATED AUTHOR AUTHOR'S ORGANIZ ATION 11/05/2020 [facility] DATE CREATED AUTHOR AUTHOR'S ORGANIZ ATION 11/06/2020 [facility] DATE CREATED AUTHOR AUTHOR'S ORGANIZ ATION 03/08/2022 [facility] DATE CREATED AUTHOR AUTHOR'S ORGANIZ ATION [facility]20[facility] DATE CREATED AUTHOR AUTHOR'S ORGANIZ ATION 10/11/2023 [facility] DATE CREATED AUTHOR AUTHOR'S ORGANIZ ATION 01/12/2024 [facility] DATE CREATED AUTHOR AUTHOR'S ORGANIZ ATION 01/18/2024 [facility] DATE CREATED AUTHOR AUTHOR'S ORGANJAMES ATION 02/22/2024 [facility] Reason for Visit (unrecogniz ed section and content) Status Reason Specialty Diagnoses / Procedures Referred By Contact Referred To Contact Pending Review Diagnoses History of total knee arthroplasty, bilateral Procedures XR BONE LENGTH STUDY Rudi Rose MD [address] [place] [address] Reason Comments Pain Reason Comments Med Refill [...] BE BASED ON THE PRIMARY CLINICAL RECORDS. [employer] provides no warranty or guarantee of the accuracy or completeness of information in this document.
--- NOTE | 2024-03-30 18:41 | XR_ITS ---
The [address] [address] Patient Name: KARLOS PISANO MRN: [id number] date: 1960 Sex: F Assigned Patient Location: ER Current Patient Location: Accession/Order Number: [id number] Exam Date: 03/30/2024 19:03 Report Date: 03/30/2024 21:59 At the request of: AKHIL VARGHESE Procedure: XR shoulder RT min 2V EXAM: XR shoulder RT min 2V HISTORY: The patient is a 63-year-old female, pain COMPARISON: None. FINDINGS: There is osteoarthritic narrowing of the right glenohumeral joint with bulky osteophytes arising from the inferior humeral head. No fractures or dislocations are seen. The acromioclavicular joint is maintained. The subacromial space is maintained. XR/XR shoulder RT min 2V IMPRESSION: Osteoarthritis of the right glenohumeral joint. Electronically authenticated by: KISHOR BUITRAGO Date: 03/30/2024 21:59
--- NOTE | 2024-03-30 18:41 | ECG_ITS ---
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
--- NOTE | 2024-03-30 19:12 | PC.NURSE ---
C/O right shoulder pain. Good pulse , sensation and grasp. States Motrin has not helped
--- NOTE | 2024-03-30 19:22 | ED.GENADUL1 ---
HPI HPI - General Adult General Chief complaint: Extremity Injury, Upper Stated complaint: Upper Extremity Pain Right Shoulder Time Seen by Provider: 03/30/24 19:20 Source: patient Mode of arrival: walk-in Limitations: no limitations History of Present Illness HPI narrative: 63-year-old female presents to the emergency department for right shoulder pain. She points to the anterior aspect and tells me that she has been having this for about 3 weeks. It was not precipitated by any injury and range of motion makes it hurt more. Internal and external rotation seem to hurt it as well especially. She is right-handed and does not have pain in the contralateral shoulder. No weakness or numbness in her arm nor any chest pain. Related Data Home Medications ?Medication ?Instructions ?Recorded ?Confirmed ergocalciferol (vitamin D2) 1,250 .monthly 02/19/23 mcg (50,000 unit) capsule losartan 100 mg tablet 100 mg PO DAILY 02/19/23 02/23/23 metformin 500 mg tablet,extended mg PO BID 02/19/23 release 24 hr terbinafine HCl 250 mg tablet mg PO DAILY 02/19/23 thyroid (pork) 120 mg tablet 120 mg PO DAILY 02/19/23 02/23/23 ([place] Thyroid) Previous Rx's ?Medication ?Instructions ?Recorded diclofenac sodium 75 mg 75 mg PO BID PRN pain #10 tabs 04/14/23 tablet,delayed release orphenadrine citrate 100 mg 100 mg PO BID PRN muscle spasm #14 04/14/23 tablet,extended release tabs acetaminophen 300 mg-codeine 30 mg 1 tab PO Q6H PRN pain #20 tabs 03/30/24 tablet ibuprofen 800 mg tablet 800 mg PO Q8H PRN pain #20 tabs 03/30/24 Allergies Allergy/AdvReac Type Severity Reaction Status Date / Time No Known Drug Allergies Allergy Verified 03/30/24 18:28 Opioid HPI Opioid Management Most Recent Opioid Data: Last Pain Scale 8 03/30/24 19:32 03/30/24 Last ED Pain Assessment 03/30/24 19:11 Last MAR Pain Assessment 03/30/24 19:32 Review of Systems ROS Narrative A ten point review of systems is negative except as noted above. PFSH PFS Medical History (Updated 03/30/24 @ 20:38 by Ronald Vazquez MD) Knee arthropathy ?M17.10 - Unilateral primary osteoarthritis, unspecified knee (ICD-10) Colonoscopy planned Surgical History (Updated 02/19/23 @ 12:25 by Lizette Sapp) H/O arthroscopic knee surgery ?Z98.890 - Other specified postprocedural states (ICD-10) Previous section ?Z98.891 - History of uterine scar from previous surgery (ICD-10) History of cholecystectomy ?Z90.49 - Acquired absence of other specified parts of digestive tract (ICD-10) H/O: hysterectomy ?Z90.710 - Acquired absence of both cervix and uterus (ICD-10) Family History (Updated 02/19/23 @ 12:26 by Lizette Iglesias) Other Family history not known due to adoption Social History (Updated 02/19/23 @ 12:33 by Lizette Iglesias) Smoking status: Former smoker Little interest or pleasure in doing things: not at all Feeling down, depressed, or hopeless: not at all Exam Narrative Exam Narrative: Nurses note and vital signs reviewed and patient is not hypoxic. General: The patient appears well and in no apparent distress. Patient is resting comfortably on cart. Skin: Warm, dry, no pallor noted. There is no rash noted. Head: Normocephalic, atraumatic Eye: Normal conjunctiva, no drainage Ears, Nose, Mouth, and Throat: oral mucosa is moist. Nares patent. Cardiovascular: Regular Rate and Rhythm Respiratory: Patient is in no distress, no accessory muscle use, lungs are clear to auscultation, no wheezing, rales or rhonchi GI: Soft and nontender Musculoskeletal: The right shoulder is examined. No bruise rash or abrasions. The right elbow and wrist are nontender and have good range of motion, radial pulse 2+. Capillary refill brisk. Range of motion of the shoulder causes discomfort. Neurological: A&O, normal speech Psychiatric: Cooperative Constitutional Vital Signs, click to edit/add: Last Vital Signs Temp 98.1 F 03/30/24 18:24 Pulse 80 03/30/24 18:24 Resp 20 03/30/24 18:24 BP 180/86 H 03/30/24 18:24 Pulse Ox 97 03/30/24 18:24 O2 Del Method Room Air 03/30/24 18:24 Course Vital Signs Vital signs: Vital Signs Temperature 98.1 F 03/30/24 18:24 Pulse Rate 80 03/30/24 18:24 Respiratory Rate 20 03/30/24 18:24 Blood Pressure 180/86 H 03/30/24 18:24 Pulse Oximetry 97 03/30/24 18:24 Oxygen Delivery Method Room Air 03/30/24 18:24 Temperature 98.1 F 03/30/24 18:24 Pulse Rate 80 03/30/24 18:24 Respiratory Rate 20 03/30/24 18:24 Blood Pressure 180/86 H 03/30/24 18:24 Pulse Oximetry 97 03/30/24 18:24 Oxygen Delivery Method Room Air 03/30/24 18:24 Medical Decision Making MDM Narrative Medical decision making narrative: X-ray of the shoulder on my interpretation shows no acute findings. My clinical impression is that she has a rotator cuff injury. She was referred to orthopedics but also has a friend who is suggesting some orthopedist as well. She will follow-up with her preferred orthopedist and the importance of follow-up was discussed. Differential Diagnosis Differential Diagnosis: Calcific tendinitis, rotator cuff injury, arthritis Imaging Data Right shoulder x-ray: My impression: No acute findings Discharge Plan Discharge Chief Complaint: Extremity Injury, Upper Clinical Impression: Injury of right rotator cuff Patient Disposition: Home, Self-Care Time of Disposition Decision: 20:38 Condition: Good Mode of Transportation: Private Vehicle Prescriptions / Home Meds: New acetaminophen-codeine 300-30 mg tablet 1 tab PO Q6H PRN (Reason: pain) Qty: 20 0RF ibuprofen 800 mg tablet 800 mg PO Q8H PRN (Reason: pain) Qty: 20 0RF No Action metformin 500 mg tablet extended release 24 hr PO BID terbinafine HCl 250 mg tablet PO DAILY ergocalciferol (vitamin D2) 1,250 mcg (50,000 unit) capsule .monthly losartan 100 mg tablet 100 mg PO DAILY thyroid (pork) [[place] Thyroid] 120 mg tablet 120 mg PO DAILY orphenadrine citrate 100 mg tablet extended release 100 mg PO BID PRN (Reason: muscle spasm) Qty: 14 0RF diclofenac sodium 75 mg tablet,delayed release (DR/EC) 75 mg PO BID PRN (Reason: pain) Qty: 10 0RF Print Language: Turkmen Instructions: Rotator Cuff Injury (ED) Referrals: Kylah,Mae, [employer] [Primary Care Provider] - 1 week Maurizio Ceron MD [Physician] - 1 week
[2024-03-30 19:26] VITALS: PULSE 76
[2024-03-30] MEDS: KETOROLAC TROMETHAMINE 60 MG/2 ML VIAL IM (19:32)
== END 2024-03-30 20:48 | disposition home or self-care (01) ==
PROVIDERS: Emergency Provider Emergency Medicine; PCP Nurse Practitioner
DX: S46.001A Unspecified injury of muscle(s) and tendon(s) of the rotator cuff of right shoulder, initial encounter (principal); X58.XXXA Exposure to other specified factors, initial encounter; Z87.891 Personal history of nicotine dependence
CPT/HCPCS: 73030; 93005; 96372; 99285; J1885

== ENCOUNTER 2024-05-14 07:43 | Outpatient (OUT) | payer OTHER, SELFPAY ==
--- NOTE | 2024-05-14 07:45 | MR_ITS ---
[address] [address] Patient Name: KARLOS PISANO MRN: [id number] date: 1960 Sex: F Assigned Patient Location: MRI Current Patient Location: Accession/Order Number: [id number] Exam Date: 05/14/2024 07:50 Report Date: 05/15/2024 05:17 At the request of: ALEXIS MORELOS Procedure: MR shoulder RT wo con EXAMINATION: MR shoulder RT wo con HISTORY: Primary Osteoarthritis ; chronic right shoulder pain, limited range of motion COMPARISON: No relevant comparison available. TECHNIQUE: A variety of imaging planes and parameters were utilized for visualization of suspected pathology. Imaging was performed without or with contrast as indicated by examination type. FINDINGS: ROTATOR CUFF REGION CUFF TENDONS: Minimal increased signal intensity in the supraspinatus tendon indicates tendon degeneration and/or tendinitis. No lora tear is seen. CUFF MUSCLES: Normal appearing muscles. DELTOID: Normal. No significant atrophy or tear. LONG BICEPS TENDON: Normal. No abnormal signal, attrition, or tear. LABRUM/BICEPS ANCHOR SUPERIOR: No visible labral tear or biceps anchor pathology. ANTERIOR/INFERIOR: No visible tear or attrition. POSTERIOR: No posterior labrum abnormality. CAPSULE No visible capsular laxity or thickening. AC JOINT REGION AC JOINT: Moderate osteoarthropathy with moderate narrowing of the underlying coracoacromial arch. AC LIGAMENTS: Normal acromioclavicular ligament. CC LIGAMENTS: Normal coracoclavicular ligaments. ACROMION: Prominent lateral downsloping with lateral margin contacting the superior rotator cuff tendon. SUBACROMIAL BURSA: Trace amount of fluid. HYALINE CARTILAGE: Marked thinning of humeral head and glenoid. OTHER BONES: Large degenerative osteophyte projecting inferiorly from the articular margin of the humeral head. Marked narrowing of the glenohumeral joint with cartilage thinning. Several subchondral cysts within the glenoid, largest is 9 mm. OTHER OBSERVATIONS: Negative. No other significant findings or glenohumeral effusion. MR/MR shoulder RT wo con IMPRESSION: 1. No appreciable acute abnormality. 2. Marked degenerative changes of the glenohumeral joint. 3. Moderate degenerative changes of the acromioclavicular joint and prominent lateral downsloping acromion process. 4. Superior rotator cuff strain. No significant tear. Electronically authenticated by: ALEXIS LUONG Date: 05/15/2024 05:17
--- OUTSIDE RECORDS SUMMARY | 2024-05-14 07:46 | XMS_ITS | CCD ---
Author Organization [facility] CliniSymn Care Team Providers Care Marketing Services Vice President Name Role Phone Jd Timmons Unavailable Unavailabl [...] capsule 3 10/31/2022 Active Start: 03-27-2016 take 19532 [IU] by m outh every month Ergocalciferol (Vitamin D2) Active 44409 UNITS Oral every month December 08, 2017 7:31pm losartan potassium 100 mg oral tablet (8 sources) Angiotensin 2 Receptor Ander Start: 04-12-2021 take 1 tablet by mouth once daily losartan (COZAAR) 100 mg tablet 1 tab(s), PO, Daily, # 90 tab(s), 3 Refill(s), Pharmacy: [facility] [id number], TAKE ONE TABLET BY MOUTH DAILY 0 [...] DAY 180 tablet 3 08/14/2023 Active omega 6-ybe-con-fish oil (Fish OiL) 300-1,000 mg capsule (1 source) omega 3-dha-epa- fish oil (Fish OiL) 300-1,000 mg capsule Take by mouth. 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 TAKE ONE TABLET BY MOUTH ONCE DAILY EXCEPT TAKE 2 TABLETS BY MOUTH ON SUNDAY AND TAKE 2 TABLETS BY MOUTH ON SUNDAY 117 tablet 3 10/03/2022 Active Start: 10-12-2017 [place] Thyroid 60 MG tablet Completed/Discontinued Medications Medication [...] Range Facility Coding Summaryon 02-20-2024 [facility] YwadfgypNVe2pVs+PGhlYWQ+AW7KHRRkN 80qcKGmcF6kL3JGVMwPEqthLQGUYIdVUu OprlRjKH5ofEHlAEFv IC8+HA5mKIFiFxewfNMzf8K3rPX3Q01vg z1pFXeytAR8XJZwNlJvyhhgf0qrhIz5TS cuNmluOyBt ONFqcT29PKX1rP54Gl09rGDngAUfp5uvw Xk2YuUiKLSpBNP3sYcpNAhfq0SvFXAyR7 6ijXFzh7P2 CALbiDtjpMQjLiSgyDX3uI1pXPyozroey 4foycdsFqg4xt57yOItv6U8cOK6Y1Ubvx B5NWMnjOGv EcncmZNSnP9ygrfbx5palephNzFvGXFzT Eh4OFu8EIRxoKsfDwYyLU11ETF6BSSaok SpL9PqDRCe bUezHpC3f2X4Qp1JF2KNDqnqS7GMCOBLQ TwvdGQ+NB39av16Q3QiUsarRvv2TTUjKP C3aDT3uD5g LXWfSQhsv2B1jAR3C3NbhrVxbp1ey9ztW YYuDPohI78ckLOuk3G1IHJmvAD8HBVsvE zrLcIywZ42 Oyc+JJSixZwlb6ReXeavr7cpz2hbdFz0T rilEFNfojLekPfqROB2f8BfZu4aEUPccG C5zMU9cR4n DgGqXeG7MYidX408VfOzwXXfPhirC00kC 3JvdXA+YWXdBww9JIMdzEttBS8vG5JbDH RpbmctbGVm eXajGR4pBJGjasxtLYFdgK4yJPIdO5j9E rOzDwC7HVqgU9LyQZIjcbauWe40qK2sOk BoDwI7BTgt O4McwxD1LBMtyNHtLLuaJGJ4I78ms0Y0W RTxRUJcPWK0hQT6rB7ngIoclqdcfDBrxB sgdmVydGlj MDugRLvzA884RKYmaLddIbZpAXgfGtFEI XRlOiAgMDkvMTEvMjAyNDwvdGQ+PHRkIH Q1cMlpDYRb hQMyVJzjAz4pfDjeyOsxQX3qQAZfdozjB LQsvD9gKPOmnFUqhMpiDN6gJULuujfvi5 36NsKzPSC0 SDYwqOWwD6VurD7yLnMbVHUlEVAxR6Pgc TMzYIkrD508XKabGsB9YDIlxgZqB5OiHY FsaWduOiB0 c1J3Oc8Ka4KrfsniL9HpyUQwFqMlQwhzD Ra0L2QeQodtkYD+WE43IMGxPO53ANt0UT G2fEyzSCbh XHRkW2SvrD8oHtPfACIvFIXsHgv+PHRhY lqfLDmqLYVcFGteVGXcElTfnEspHL3jPu 9yZGVyLWNv kMpquMTkLoYeh6fzMTGhCKujKH9wpXkyN 5GkbQS9RJDpf0r1Mq66R95oO6ZmwUU+PG SeqDV4qCP2 wQ0pArNlFyO7XRduH031ByMftUVwPwnpr 4puu2hikZc1TtI5AOHbumArdYhgCPZ1p9 SwSh31Z16e WIlvTPUjGBRtGJTwGIKedIsrlr1rsE0iA i8+RVGesIR0pME5vS4nTqHxBjP1GZnuB1 49InRvcCIv Kbuyv5xcd8vfsWt2KqVxHGWsgcCceCgeP PA4l2YfIq99P7JkqVsnb1EqTqq2wv05wG Gfm0J9sRR2 K7XyPPImkwgvaMXnrMwsID9xSVSmsxciN ZNmdM0dLHBkN6z2ZaZiNkK6KAliT3Nlpp V4GMWcbJDg SSFgvJHKbD0klmlom9egdkrtEnDaAAJlD Es8YSp2ZUQzxOcfBfBzKNU0YcX5BXS4rM YtmK6spJbt scvpkT6iVbe+DXA6yULwqUWBXA4vJfpse GQ+BSZpBGQ3tVfiZUegKPYpzA2fYFPkS0 a9ViKuEbQ7 CBryH0DfciL8BPKmzCSsHJPkuRKLeN2qa ahap2wwsotpCsBfDEFvZGd9FGs8JXLybK duOiBsZWZ0 RjA1TIF7zZJexM4mjZpvlxxyxB8tXau+Q floeNvhYNP3VUu4C6YiYcc8WJKkvJyqKE 0ncGFkZGlu In3znHvqdHlbJB3wSPYnglqnx180SzAhq 2dtFYIndJIlEEciOIN3W63li0H3RDHaIM DvPRQ1kWG4 zH3xtEpdupzdfIVklKwnzwDakXmaTBbnJ HfgR097ITZrbVyvNmBcNTa6Q6HfYet1GD OvqRxlAX4n zOSvDZesJf6xkJrynBcvKD1zYIOugwita 311FnShi7hwQSCfuDEgBOfwQNC0A59wv2 T5BVLpUFTd VLQ4xAD8tP1ghFbaustgyLMikNivvaCig GuqMWzlAKbnK179DSZrsZwtSpPcdPy1D5 NpSzg1WDXo bSjdPP1snCXfZSplGs6ftAvqeQekGZ0mR THdhbnom777LjNoy6rvQNZfxIYmDOcrAZ F7H43di1I1 OOXgYKFqZZY1xOC5eG9nhSqduewlpFEpa BrxyxArmJpeXHdaFWiuV679YGGmaYrhFq BhdGllbnQg NZrmNKn8Q6UsJwpxtCM+WZ51NTAdCR89o GZukWSku0wjwZz2CtLiHTOxRZT3fPeaDS mpg0FpAMXu J30piPZzz3J3IJStxYcxkWKaToPchAK4o J3lRPzjbezlf3qqpbetTlxtr2ykar69qF 64H42gBXyz TKNxMCQyIJQuVGZgvXjbet1ogF3fVf3+P JHgcYS6gIN3pL0tDFPeWaM4ZPhlO108Wt RvcCIvPjxj w4kxz7szfTm5XeN3NHFmyzJhkRwkJYY7l 3TtFb46E07cETgeBDHgYLYsNCVyFRLspM mqly1rnG2p Ii8+OSIggGH1jHR7wO7aBpMsKfP4MIczH 925HoUdjMOdWnkhE02oJ8KkzXI+PHRyPj s1RUAzxYzr MV5etYZaRKjaGw8zHFN2CxPqYqTmARmwZ 1MqUDUnwmvbxalunRB5WRObINZgmO61Rq 9udDogMTBw oZMVkJ1irhysh5orarrwPaNyGXObSWh3Z Ba7RFJslYwwWtQsSLR5BsC7CGH4gAXkxC 1hbGlnbjog uQ5lL7CrRSKnyjjmWl79oK6zXtEpIiN7G GluOyc+FMtUMoonSZuTZdPASO35M4WiNg o5WVCrrCmc YJ9dgWOyEZsnKp9zxEkzkIoiVX7oSMSlf kgtCBGmfB7hCEXauHVjmAvgXZ0bGLLfen qhi025GuBx LJQ2ORYrbBJoO9ElfC4lSxWoRFIwQZZdI 8IwlEArPDwwU172XZxnIsN2DQKyqkEdI9 FsLWFsaWdu RyA6l1Y9Uf9fYA1wJP2bIBUlPE51KK56d RHju3T7uIX0Z1PwVHVdqszkcqyfvRA5BA QdPIVccL41 fHIrFCvbCu0pl5L0f021WOQfTIHpzB15G t2ljMsaSINndHSKpN1twwxvx4slnjtjKd AwMDAwMDt0 LRv7WFVfpSqnIyGeAKO8CwW1MDN7pOWej M7fhZlcrlxlyI4vVxg+KbCeCANllfH5W3 AoKwz9YOSw gAojFS0ybYIwUNyoTg4sfXcojGjbJZ7mB BPdmdymJKMkeY9gNMTotFFmgFjkRU3kIJ Esusagk183 CdRaAHR0TOOzjSUdQ1FzgR2iXzRgJWMrO SWvE7NfdDXwKNwhW309CQjtMqN5QEWpid KgZ9RfODFk bLftXyZ8x7E4Zl1DZS0BCTU7R7PuTxc5I XUvoBksSO4bxHMdUHtuBx7reAnuzCihMR 4wNTBpbjtw JMNjfX9nZISheRPdlUyoWD6kNYHwdsenn 435TmVwAKL8PUHwnWKqP5QunL3gQfEqKB VaDQWyI4Xa tRZcQTzkI230LFzsDyW8YILnauZkO8PfH YVmgYloRgV7t0A7Eq5BrYHwL7TkZ9l2C8 RkPjwvdHI+ AJ66ESRyAW32wHFlpLPjr4tasHi3WbWtJ FAjBJR8mNoaNRvml6IqYCSjS87giFSuc7 Y4SIQimDht kSEgPmSdaDN8pA9jBJmgvnsir5hhxgydV yzkc9wwfz94cM64K61cTOopTQOvSQRgET UiIHZhbGln ji5hqN4fRj6+HCNbjNL0yHP2mP6oLjUkR rW8EFceO576GiQueSMuYcdym2hyn7erhW i5MtVfCILk niIeaZcvDZN7w0NrUo29I17nRXghFHShQ MZrPSKeGIVslXmkrk3mbD7nBy9+PC9jb2 bzau21yB39 dHI+XSLeKIL5tBauQZzqCAJruD2qLLkbM aY8HQXpHxNcqY24lZPaXUzoGx5gyHwmoI feSN5vMFIn riyhr903QlGkc0rqAOPpcRXzKUpkHJI5G 72ob5T2PYKzBHIgCEP2iIP4uG3zvYtvfm ogbGVmdDsg qiEhyDblOHngDDjxF645FMHlnQhkCbTbp WYoE7yxpnWFCN8yDbwvtTH+XMWdFEW8tW xlPSdwYWRk pO4tGTKdN7r7MtVdTyJ9HKkjH5EjelV4F UWroVItXSZwyOKJeL4wlyzox1nyvwooPe AwMDAwMDt0 ZTt5NNMceAiiVcIoPNB1PlK1UTT9gAIfy Y5orPvlkdopjU5lWuv+RklOOjwvdGQ+PH OuKNM1vFuo LLmoZRKgnQ6pZHJoU6v0OrHsOhC3CYpdI 2CvhoD7JDJkpAQxEQDnvWUZuD8jaewyx5 xvcjogIzAw ZLWtPGq0RBh6GAXjhRhnDzAuIHE4CeZ4X YC0gALxpB5vjBkzkhiftW9cKol+TVJOOj wvdGQ+PHRk SNM0bGreYIeqXVJszS8aHWRgB8a7JhNmL hN0FNjzE9ApqsK9KZVycRBkCWCcvUCHdR 8moaxdd6dz rexdOzOhHDGyTQh8BUn2RABjoWdoYqUsF VZ5EdF9KCY2rJXiqI4dkMsajdssfR1fEa c+HRX5LKH6 XI59IZ47V1EzHpymhTZwnPH+PHRhYmxlI UroMTWsSOayMMJsLuNutDlxUN6bKc1hBN VyLWNvbGxh Suzi (more content not included)... [facility] ED Clinical Summaryon 2023 ED Clinical Summary [facility] Department [address] [place] [address] ED Clinical Summary PERSON INFORMATION Name: ANJU PISANO Age: 63 Years Sex: FEMALE : 1960 MRN: Acct#: Visit Reason: Dental pain; DENTAL/JAW PAIN Arrival: 02/13/2024 14:17:31 Discharge: 02/13/2024 14:46:00 LOS: 000 00:29 Check In: 02/13/2024 14:17:31 Checkout:02/13/2024 14:46:00 Address: [address] [place] [id number] PCP: Provider, Unlisted PROVIDER INFORMATION Provider Role [...] Patient/family/caregiver verbalizes understanding of instructions given Comment: [facility] ED Note-Nursingon 02-13-2024 ED Note-Nursing Pt ambulatory [...] is A/Ox4 call light within reach [facility] ED Patient Summaryon 024 ED Patient Summary [facility] [address] [place] [id number] PATIENT DISCHARGE INSTRUCTIONS Patient Information Name: ANJU PISANO Age: 63 Years Date of : 1960 Reason For Visit: Dental pain; DENTAL/JAW PAIN Arrival Time: 02/13/2024 14:17:31 Primary Care Physician: Provider, Unlisted Attending Physician: Richa Paul MD Comment: Visit Diagnosis: Diagnoses This Visit Dental abscess (K04.7) Dental pain ([id number]) The Pharmacy at [facility] is open Sunday through Sunday from 9A [...] alcohol and/or drug addiction problems; contact the [facility] 01/01 Crisis Hotline -Gaiy 5WFOF lu [phone]. If you received any narcotics, sedation, or [...] and treatment you received today in the [facility] Emergency Department were for an urgent problem and are not intended as complete care. It is important for you to follow up with a doctor, nurse practitioner, or physician?s tourist information assistant for ongoing care. If your symptoms become [...] so we can reach you if necessary. [facility] has provided you with a complete list of medications post discharge. Please inform your collaborative physician/provider of your visit and for further instruction on these medications. Any specific questions regarding your chronic medications and dosages should be discussed with your primary care physician(s) and/or pharmacist. [facility] [id number], [address], [place] [id number], [phone] acetaminophen-hydrocodone (acetaminophen-hydrocodone 325 mg-5 mg oral tablet) [...] for diz (more content not included)... [facility] Follow-Upon 01-10-2024 Follow-Up [id number] Anju Pisano 1960 F Date Provider Department Center 01/10/2024 [id number] PAT [facility] ENDOCR [facility] No family history on file Level of Service:05621 [place] OFFICE/OUTPATIENT ESTABLISHED LOW MDM 20 MIN Reason for Visit and Comments: Follow-up [[id number]] [facility] Coding Summaryon 12-01-2023 Coding Summary HTMLBase 64 WtqaukpeLHn7oMz+PGhlYWQ+CU1YNASoU 43zuFGqyA1xT6DPXCsGKfyoWJNXDRlPHb SnppRvZE0iuQShRAIk IC8+XC9aDLByAwxkxUMdb8I8cBP7S74ot d8bUJxwtIO4XETlQyQaumxzi1cwaIt8VY cuNmluOyBt DIVdcB54TTX7kU98Ud97gOUtvJIyg9beu Go4PfDuZZWjGNZ4xNymVJpnk5JyVBAiE5 9nmYWbu8P9 EMDtsHyqhJPbZfDeuIU5sO1eJJitamrpv 7ikdgdrSmm7ze31mCPky2Y9aGG9Y4Keot H6DRPueHQl XwypjWGZbQ9cenlzg2vjaoysAhLgEGPpN Wh4WIh1PPNmkCreXyWqNG99FOF1JFMcnj BhI4SaPAWi jHceVyW6b4Z4Tf7DM2VLIwpgZ9FXQJCNI TwvdGQ+OH99yj78I4BqCljeJto9RRKwGM P9jYA6gA9t HEOoFZirh4F4eLP9J4PzblJoyo1gl4rmS KDhSFrvI03knHKcs3K2SGTbsLJ5VZSdxT nzOcYkaU19 Oyc+ZNEhqGpoe0HsTsnst0bfz6lbsOo5N toqRNSslsSqcPwyGKR8t8MjAx7xOWEsvI V0iBS0nN5q DxPeScH0FEbaZ984EvOxpOIaIgrjF43dT 3JvdXA+GQBdSvv9KPQzqRhmZL4aX9HmKD RpbmctbGVm eLimBA7kZAVomtcwSLFkwO8sIPJsG2n8W gMoPbG5ONwcL4DpRWTfiafsQl84uI5aJy HoNqC3VIpe D7EqudZ5RQPxhCKlIBusGKT7E12yk1T5G UTqDGHgOXI2xUZ9mQ4dcXasirhdxTEueN sgdmVydGlj WWuxDWzgN598UYHygArfPxVnAJyyDdLEE XRlOiAgMDYvMjIvMjAyNDwvdGQ+PHRkIH O0pTyfZYKi gPRwLHuaRs3mtChzwKnrHM1qFMBnavmdJ JDauT1hNAWmjDZoyPjhUY9eBQVfltmsj6 85BmRqKSH6 CZXleOJnJ4JwzI4eYuFpZQUjLXBwU0Abb VQvYOidX462SQftGcA5LJJsqnUhF9WyOB FsaWduOiB0 x8X0Uo3Rz6LbephwW5ExoHNkGbOwJrdzB Du4W4OrFvobrLF+NV24VXDbIW88OPs5EX R9eRwpGTbt PZWdW6UtmB8sIhBwDZLhXABgRwy+PHRhY ezwJKobQFAmZXjpGMBtPsFqaQscSH1hOi 9yZGVyLWNv tTwnsIWfAsGxb5tzLJHwGWpgHV4trTgtE 4MovMB7NXKrp1k3Tn51N53jB8EuoSY+PG StiIB2bTD4 qF6kMzYgHzI0IMrbA990VvGleQBdLjfhx 5qli4eebSp3IvU7FRJsrgFtsYjhAJF4b0 DuUe42D59a ACskVMFdONPeJHGhSOAadRpdkh2czP6jP i8+MPFbsOH5nOZ2fI6qZnXjAeJ8JFfrK2 49InRvcCIv Gkcla2tsx7necYc6WoZuSQVmksOblXrpY UF1b4TzQq65E0CyxVejh0MtGdk6pd90hG Xjy5X1yBU3 H1IdUOOdtiusaIPxiKlaAU1jYYFeuuokO PEtuB5cLTFlF6m9KtTdXhF2UMpuE2Hxjn F9UOEhbFMa AILjpUEPdG6nadfez2cfvzlbOnEbXMEbI On1KTv0OFIlaGtbIoRfHHM9PjT0ZBM4tA FevS1phRhz bqcqaO4iBut+CSY8rRRgpFSINE1qXlgce GQ+LSKmLPP1dUsjRRpoYXGjwW0vXTAbY9 p7YfVgZmZ3 GGvhQ1XyijQ2LVFdpTQpVYLhdTCMtW5bn mmix0hyiijsWuIeZBKpWUv9OJc4CJAbaJ duOiBsZWZ0 XxM4NGS9vKHaqV3psErcxkyqsQ8tShl+Q ngtfCxqSXL9XUk0E0OiLgm6PGAoiOkeGA 0ncGFkZGlu Ba8qyPmfpPneES2bGSGqetssj229HlIzl 6jfZIXikGOvZSlbVFG0A71re9F1YUGfBN VpMID1eDH3 nM0abPnxpudtxCWziTlpyaGsnHxxFNdcW JdnT153ZGDkoOovUgEmNXa9G2KoVhs9DF DkmBryRS3a kVDdZNavRq7qdWzlqAdfHV9oWHGdgwwxc 482AjYbj8aoOZLteIUyBUisMPB9A38te7 O0BMOpTUEi ZKP5bUW6qQ5ctAewjwhgmUMocVbivyXse XwzNQiiCCqvV714VCFpsEyzSrAilAe5L3 VxJfz6ASPi oWvwSL5iwIYiAAmjPg1iaXgloDuqIQ2cN HUsopnha346DmBsg3fbSRKuoFLnUZnbNN U3V68fq2Y0 XBNhMFMeYQO7zCQ4gR8mvAlqxmocxNDmd GjlcoTzpYdoKWmxPVgvU794QTNoaCemJm BhdGllbnQg MPwfEXk6B6EoKqvajKC+ES28EMIvWN17t GYbfSYbg2dfqPm7WnIjJRYnBRZ0hQotBR mgg4RlORDb O29bhMYnd1X7POBweIcvyLPfQuOqzNC9c B4rCXrbmlrrp1satezvGfrhm5jyqf45iO 48Y62oHMpt KWKmKEUxKVGqACKfnLvysz7tnV4wLp7+P JSzcXM9aVX1vJ2qZTQqQoL9FGbiL384Ve RvcCIvPjxj s4vqj7gtqBv3MbO8LOPuglCxcKdnARL7o 4PsJv64P07xEPunXSTnDVYaVQIpMAXulB mdxs2cuJ4q Ii8+RJCcaTQ7qMZ6eP0sBaHuLiR2WWvqP 072KxUaiXUyGozpV96iY6FahBI+PHRyPj b5OMNowWfn KC8grWWnGDvxHi6hJBE7BxYnNjYuKTblN 0ImQWHrhdaqtngieSQ2NYZsKXItgL94Mq 9udDogMTBw jBKIrG7vzsxmg9xeygxdBkJhOXDhJOb5V Fz8DFMjuVyfEtOeVPN8SrS8PCB4yRHqoJ 1hbGlnbjog bQ3oF5MkOEMemrbaRg05yC7zExUsTiQ8L GluOyc+BEkPGypxTOfUBjUGNW35G6ScWm v8MXZywWmx JR0jmCGrTSnhJl6wlDihgIlaOY8tXAMyk ludKQNosI2nMYBojWDwyLkwNM0oLTXmff tqg831ZoOx GRN5AMPpiKEeH4YiaU6gLpIpEMQpFZMnZ 8PqwCEhWCmpH326IHxiErE3QAKolgYjY8 FsLWFsaWdu ZyK0g9Q7Rc4fRW3eWU8hTPYfDL54RB37b CAgw3K5yLI5R2LpNLHselvuufdyrKV4TG HnBPLaqG69 lBVrQWbpMf4gm1T0t691AKImESVzxN54S g6fgYokBBZfvKWNfT3vfsuea1nbraoxVq AwMDAwMDt0 HDx3AIEixGhvUnMzMRO4GoL0OCE8oWGuf R6omUfcgqewuM7dCrp+CpXdQRKhiyG6J6 CkPii0MTSo eXsbFE0wjQDqLOotSh9lbYxqmQpxWR2dS FOgpzfoSHLuvL3pYTIivAVelDrtJJ6iRC Nerqhjm495 FfIrFUR0ZOTapURlP0MddU3kSzYeFZVaR JKrZ7VzdLOcMRuhQ087PLszZiQ9BJLsst ZlP5WzGIUi xTuvDoK3t8F9By5UDI7QXLM8K2SrPhr9X UCxfQthFE0tgMMbLNsyYj7moRuzdYpoJG 4wNTBpbjtw QQCqjG2vGXFdpFVgwZepJV5jPGGujbnsf 716HaYcDSH4AFHexSEyK9GgtD7iRsIzWJ JaDFRvA1Se nACzWLyfZ756ABrkVjC3GBSzevNpE4QgT LHyvTlsCzH6x8Y5Gf6CxXQnJ9WcP2r6K1 RkPjwvdHI+ RQ00ELMaPU47dNEpdBFwn5cmsXw6GtYkQ EYqKEV6oSnaZAswb8VxKAGaZ93huZTgi6 M6HGWipRsw kISqIzJrpAP4hJ6qJSagrbzlh0srsjroM mmop3jcwc48dF20V24dBHgzOWYtLIGcSU UiIHZhbGln dy2mpA8lOc0+BNUdlBK9iTL3wU8jLbVnS kQ7ASqeQ599GeXcwTXeCdsjh0jaz0wqhO g4SxFaWJAx hfAsjGolEMW4c0EzKw74Z22eFYgaFUJaN IQpXRQwLUGkaFywuv9vdI0zBp0+PC9jb2 xdrx22cU51 dHI+ZYWxYUM9jSiqGVhqOHFigK7zZOhbC xF1OGDuTaUusO65cPPvILfaXf7amAzraL keAQ6wYIGe oylwl752PdYoo0bsYNEavTItIKsjKMI1X 68jf7R7GUIfCQSrOBG5vXK9pV7hxVmfmm ogbGVmdDsg irBecOnkAAzrTTyoD984DEIufHwyAbQvy FYxC0hhzfSJUW5bOnezmDW+VWOeOBP7fL xlPSdwYWRk bM3cFMPkC1y2AhShGvY5OPdeP3UttrL5Y QEvtXEqLJZepHMWeC3pmawuc9hogupmVk AwMDAwMDt0 IBr6FKGxtUzgDtZhOEF7PmM0FRU3xNBjn A8agMeqgunrtG0oRzx+RklOOjwvdGQ+PH RmXRW5wEhk TXzgNZKaeD7xAGAmY8b5HkJjZjB1EEbvO 0VyjhJ4XWVppMJuLGPfuZPLuU1cmbxrb0 xvcjogIzAw PGGsSOd0RSv4CLWwfSubTkYjTGD2UvY0M ET8sZJczG1ixTpvgbdemP5lTml+TVJOOj wvdGQ+PHRk WKP9wEtbVRxuOFClsR5lGBPlH9a7LnHmS bG4AOpfI4OsycP5RERosPZgOLAjaOFUeC 1kkhksy1ab ziniUkWoIPNlPZu0CZk4WTYgwXzrRsDiK TF6KoV5MTL2uIWisV8xzPshloxnmY6oKt c+GTF4VQX2 ZW99ZV57N2MzHjgwsYMldSC+PHRhYmxlI CpdFHKqPNxlIWOpNoJpfJvaSQ3tCj5gSZ VyLWNvbGxh cHN (more content not included)... [facility] ED Clinical Summaryon 2023 ED Clinical Summary [facility] [address] [place] [address] ED Clinical Summary PERSON INFORMATION Name: ANJU PISANO Age: 63 Years Sex: FEMALE : 1960 MRN: Acct#: Visit Reason: Closed head injury without LOC; Knee pain-swelling; Fall; FALL/KNEE PAIN Arrival: 11/20/2023 18:12:43 Discharge: 11/20/2023 19:57:00 LOS: 000 01:45 Check In: 11/20/2023 18:12:43 Checkout:11/20/2023 19:57:00 Address: [address] [place] [address] PCP: Maurizio Penny DO PROVIDER INFORMATION Provider Role Assigned Unassigned Cyndie Pedraza NANOFABRICATION SPECIALIST Nurse 11/20/2023 18:16:48 Livan Andrade MD ED Provider 11/20/2023 18:20:26 Jaylyn Bishop NANOFABRICATION SPECIALIST Nurse 11/20/2023 19:07:19 VITALS INFORMATION Vital Sign [...] 90 tab(s), 3 Refill(s) Documented Medications Documented [place] Thyroid 60 mg oral tablet: 60 mg, [...] Family/ Social History Medical history: Resolved Tumor ([id number]): 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 Resolved. Dental infection (4053845510): Resolved. Diverticulitis (888837046): Resolved., Reviewed as docume (more content not included)... [facility] ED Note - Physicianon 2023 [...] 90 tab(s), 3 Refill(s) Documented Medications Documented [place] Thyroid 60 mg oral tablet: 60 mg, [...] Family/ Social History Medical history: Resolved Tumor ([id number]): 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 Resolved. Dental infection (3707134583): Resolved. Diverticulitis (317956881): Resolved., Reviewed as documented in chart. Surgical history: Joint replacement ([id number]) on 12/09/2018 at 58 Years. Comments: 01/28/2019 9:12 Nicole Parnell Right knee Joint replacement ([id number]) on 09/09/2018 at 58 Years. Comments: 01/28/2019 9:12 Nicole Parnell left knee Bone density scan ([id number]) on 04/15/2018 at 57 Years. Arthroscopy of knee ([id number]) on 10/16/2017 at 57 Years. Mammogram ([id number]) on 12/06/2015 at 55 Years. Hysterectomy (479160356). Cholecystectomy (18338060). section (33224351). Comments: 02/14/2017 22:25 ROULAT - Gracie Eddy 1992 Tumor ([id number]). Comments: 06/27/2017 13:24 JAZMINE - Frida Salinas RN per patient to the right rib 02/14/2017 22:25 EDT - Gracie Eddy Arthroscopy of knee ([id number]). Comments: 06/27/2017 13:24 JAZMINE - Frida Salinas RN left knee, Reviewed as documented in chart. Family history: Patient was adopted. Alcohol user Mother Diabetes mellitus type II Father Heart attack Father Substance user Mother , Reviewed as documented in em (more content not included)... [facility] ED Note-Nursingon 11-20-2023 ED Note-Nursing Pt brought to ED RM 4 C/O a fall, Pt hit her head and check on the left side on a wood post, no loss of consciousness. Pt left knee is swollen , deformed. Pt stated I had two knee replacement in this knee, the last one was 2 years ago at [facility]. Pt recieved 50 of fetynal IM in EMS. Pt stated it really took the pain away Pulses are bounding in the Paula pedal and post tib. Pt is A/Ox4. call light within reach. Son is at bedside [facility] ED Patient Summaryon 024 ED Patient Summary [facility] [address] [place] [address] PATIENT DISCHARGE INSTRUCTIONS Patient Information Name: ANJU PISANO Age: 63 Years Date of : 1960 Reason For Visit: Closed head injury without LOC; Knee pain-swelling; Fall; FALL/KNEE PAIN Arrival Time: 11/20/2023 18:12:43 Primary Care Physician: Maurizio Penny DO Attending Physician: Livan Andrade MD Comment: Visit Diagnosis: Diagnoses This Visit Closed head injury without LOC ([id number]) Contusion of knee, left (S80.02XA) Fall ([id number] 0EC6) Fall on same level from tripping (W01.0XXA) Forehead contusion (S00.83XA) Knee pain-swelling ([id number] 2AE8) The Pharmacy at [facility] is open Sunday through Sunday from 9A [...] alcohol and/or drug addiction problems; contact the [facility] 01/01 Crisis Hotline -Text 1BVOD to 604993. If you received any narcotics, sedation, or [...] legal documents With: Address: When: Maurizio Penny [address] [place] [address] Business (1) Within 3 to 5 days Comments: Reviewed discharge care instruction. Continue with therapy as outlined by Dr. Andrade. Use immobilizer and Derek wrap for support. May use cane, walker or crutches to help reduce weightbearing. Increase activity as tolerated. May apply cold compress, 20 minutes every 2-3 hours for pain and swelling. Elevate leg when possible. Take [place] as needed for severe pain Contact your [...] and treatment you received today in the [facility] Emergency Department were for an urgent problem and are not intended as complete care. It is important for you to follow up with a doctor, nurse practitioner, or physician?s tourist information assistant for ongoing care. If your symptoms become [...] so we can reach you if necessary. [facility] has provided you with a complete list of medications post discharge. Please inform your collaborative physician/provider of your visit and for further instruction on these medications. Any specific questions regarding your chronic medications and dosages should be discussed with your primary care physician(s) and/or pharmacist. New Medications [facility] [id number], [address], [place] [id number], [phone] acetaminophen-hydrocodone (acetaminophen-hydrocodone 325 mg-5 mg oral tablet) [...] oral table (more content not included)... [facility] Progress Note - Nurseon - Progress Note [...] on: 11/20/2023 20:10 EDT] Jaylyn Bishop RN [facility] XR Knee Complete Lefton 11-09 XR Knee [...] DO 11/20/23 8:07 pm Technologist: Rosemary GAMINO [facility] COMPLETE BLOOD COUNTon 10-09 Erythrocyte distribution width (RBC) [Ratio] 13.1 % Normal 11.5-15.0 [facility] Comment on above: Performed By: #### DEVIN, 13601-7, CBC, 331-1, THYR #### [facility] ([id number]) [address], [address] [place] [address] Hematocrit (Bld) [Volume fraction] 40.9 % Normal 35-47 [facility] Comment on above: Performed By: #### DEVIN, 44170-7, CBC, 24 331-1, THYR #### [facility] ([id number]) [address], [address] [place] [address] Hemoglobin (Bld) [Mass/Vol] 14.1 g/dL Normal 11.7-15.5 [facility] Comment on above: Performed By: #### CMP, 50684-2, CBC, -1, THYR #### [facility] ([id number]) [address], [address] [place] [address] MCH (RBC) [Entitic mass] 28.8 pg Normal 27-34 [facility] Comment on above: Performed By: #### CMP, 94976-9, CBC, -, THYR #### [facility] ([id number]) [address], [address] [place] [address] MCHC (RBC) [Mass/Vol] 34.4 g/dL Normal 32-36 [facility] Comment on above: Performed By: #### CMP, 88763-0, CBC, -1, THYR #### [facility] ([id number]) [address], [facility] [address] [place] [address] MCV (RBC) [Entitic vol] 84 fL Normal 80-100 [facility] Comment on above: Performed By: #### CMP, 77057-6, CBC, -, THYR #### [facility] ([id number]) [address], [facility] [address] [place] [address] Platelet mean volume (Bld) [Entitic vol] 7.5 fL Normal 7-12 [facility] Comment on above: Performed By: #### CMP, 90122-2, CBC, -, THYR #### [facility] ([id number]) [address], [facility] [address] [place] [address] Platelets (Bld) [#/Vol] 315 10*3/uL Normal 150-450 [facility] Comment on above: Performed By: #### CMP, 91469-1, CBC, 331-1, THYR #### [facility] ([id number]) [address], [address] [place] [address] RBC COUNT 4.88 X10E12/L Normal 3.80-5.20 [facility] Comment on above: Performed By: #### CMP, 08073-7, CBC, 24 331-1, THYR #### [facility] ([id number]) [address], [address] [place] [address] WBC (Bld) [#/Vol] 10.4 10*3/uL Normal 4.0-11.0 [facility] Comment on above: Performed By: #### CMP, 27216-7, CBC, 24 331-1, THYR #### [facility] ([id number]) [address], [address] [place] [address] COMPREHENSIVE METABOLIC PANE Malcom 10-10-2023 Albumin [Mass/Vol] 4.7 g/dL Normal 3.2-5.3 [facility] Comment on above: Performed By: #### DEVIN, 21956-7, CBC, 24 [facility]-1, THYR #### [facility] ([id number]) [address], [address] [place] [address] ALP [Catalytic activity/Vol] 95 U/L Normal 39-130 [facility] Comment on above: Performed By: #### CMP, 19711-3, CBC, 24 331-1, THYR #### [facility] ([id number]) [address], [address] [place] [address] ALT [Catalytic activity/Vol] 14 U/L Normal 0-31 [facility] Comment on above: Performed By: #### CMP, 00344-5, CBC, 24 331-1, THYR #### [facility] ([id number]) [address], [address] [place] [address] Anion gap [Moles/Vol] 9 mmol/L Normal 5-15 [facility] Comment on above: Performed By: #### CMP, 52592-6, CBC, 24 331-1, THYR #### [facility] ([id number]) [address], [address] [place] [address] AST [Catalytic activity/Vol] 16 U/L Normal 0-41 [facility] Comment on above: Performed By: #### CMP, 93060-0, CBC, 24 331-1, THYR #### [facility] ([id number]) [address], [address] [place] [address] Bilirubin [Mass/Vol] 0.8 mg/dL Normal 0.3-1.2 [facility] Comment on above: Performed By: #### CMP, 32040-7, CBC, 24 331-1, THYR #### [facility] ([id number]) [address], [address] [place] [address] Calcium [Mass/Vol] 9.9 mg/dL Normal 8.5-10.5 [facility] Comment on above: Performed By: #### CMP, 85439-0, CBC, 24 331-1, THYR #### [facility] ([id number]) [address], [address] [place] [address] Chloride [Moles/Vol] 106 mmol/L Normal 98-109 [facility] Comment on above: Performed By: #### CMP, 73902-8, CBC, 24 331-1, THYR #### [facility] ([id number]) [address], [address] [place] [address] CO2 [Moles/Vol] 28 mmol/L Normal 22-32 [facility] Comment on above: Performed By: #### CMP, 15749-7, CBC, 24 331-1, THYR #### [facility] ([id number]) [address], [address] [place] [address] Creatinine [Mass/Vol] 0.77 mg/dL Normal 0.40-1.00 [facility] Comment on above: Result Comment: METHOD TRACEABLE TO IDMS STANDARD Performed By: #### [place], 76519-1, CBC, 06749-9, THYR #### [facility] ([id number]) [address], [address] [place] [address] GFR/1.73 sq M.predicted among non-blacks MDRD (S/P/Bld) [Vol rate/Area] 87 mL/min/{1.73_m2} Normal >59 [facility] Comment on above: Result Comment: Reported eGFR is based on the CKD-EPI 2020 equation that does not use a race coefficient. Performed By: #### [place], 14954-7, CBC, 34497-0, THYR #### [facility] ([id number]) [address], [address] [place] [address] Glucose [Mass/Vol] 101 mg/dL High 65-99 [facility] Comment on above: Performed By: #### DEVIN, 37577-4, CBC, 24 331-1, THYR #### [facility] ([id number]) [address], [address] [place] [address] Potassium [Moles/Vol] 3.6 mmol/L Normal 3.5-5.0 [facility] Comment on above: Performed By: #### DEVIN, 77296-0, CBC, 24 331-1, THYR #### [facility] ([id number]) [address], [address] [place] [address] Protein [Mass/Vol] 7.1 g/dL Normal 6.0-8.0 [facility] Comment on above: Performed By: #### CMP, 13703-7, CBC, 24 331-1, THYR #### [facility] ([id number]) [address], [address] [place] [address] Sodium [Moles/Vol] 143 mmol/L Normal 134-146 [facility] Comment on above: Performed By: #### DEVIN, 08346-6, CBC, 24 331-1, THYR #### [facility] ([id number]) [address], [address] [place] [address] Urea nitrogen [Mass/Vol] 12 mg/dL Normal 5-27 [facility] Comment on above: Performed By: #### DEVIN, 78280-5, CBC, 24 331-1, THYR #### [facility] ([id number]) [address], [facility] [address] [place] [address] Lipid 1996 panelon 4 Cholesterol [Mass/Vol] 151 mg/dL Normal 150-200 [facility] Comment on above: Performed By: #### DEVIN, 50051-3, CBC, 24 331-1, THYR #### [facility] ([id number]) [address] [address] Cholesterol in HDL [Mass/Vol] 42 mg/dL Normal >39 [facility] Comment on above: Result Comment: HDL <40 mg/dL - High Risk HDL > or = 40mg/dL- Desirable HDL >60 mg/dL - Negative Risk Performed By: #### [place], [address]-7, CBC, 67803-8, THYR #### [facility] ([id number]) [address], [address] [address] Cholesterol in LDL [Mass/Vol] 65 mg/dL Normal <130 [facility] Comment on above: Result Comment: LDL <100 mg/dL - Desirable LDL >160 mg/dL - High Risk Performed By: #### C [place], 21998-5, CBC, 93516-9, THYR #### [facility] ([id number]) [address], [address] [place] [address] Cholesterol in VLDL [Mass/Vol] 44 mg/dL High 0-30 [facility] Comment on above: Performed By: #### CMP, 25229-4, CBC, 331-1, THYR #### [facility] ([id number]) [address] [place] [address] CHOLESTEROL:HDL 3.6 Normal 1.0-5.0 [facility] Comment on above: Performed By: #### CMP, 16731-8, CBC, 331-1, THYR #### [facility] ([id number]) [address] [place] [address] Triglyceride [Mass/Vol] 220 mg/dL High 27-150 [facility] Comment on above: Performed By: #### CMP, 28243-9, CBC, 331-1, THYR #### [facility] ([id number]) [address] [place] [address] Office Visiton 10-10-2023 Follow-up visit [id number] Anju Pisano 1960 F Date Provider Department Center 10/10/2023 08545-PJTFMBJORDON PAT [facility] ENDOCR [facility] No family history on file Level of Service:05771 [place] OFFICE/OUTPATIENT NEW LOW MDM 30 MINUTES Reason [...] metformin to different medication David savage of [facility] THYROID PROFILEon 10-10-2023 Free T4 [Mass/Vol] 0.60 ng/dL Low 0.61-1.60 [facility] Comment on above: Performed By: #### CMP, 67995-6, CBC, 24 331-1, THYR #### [facility] ([id number]) [address], [address] [place] [address] TSH 3.07 uIU/mL Normal 0.49-4.67 [facility] Comment on above: Performed By: #### CMP, 13506-1, CBC, 24 331-1, THYR #### [facility] ([id number]) [address], [address] [place] [address] Vitamin D+Metabolites [Mass/ Vol]on 10-10-2023 VITAMIN D 25 HYD TOT 67.1 ng/mL Normal 30-100 [facility] Comment on above: Result Comment: Vitamin D status 25 [place] Vitamin D Deficiency <20 ng/mL Insufficiency 20-29 ng/mL Sufficiency 30-100 ng/mL Toxicity >100 ng/mL NOTE: A pediatric reference range has not been established by the natural resource officer of this kit. The [place] [employer] recommends a Vitamin D level of = or >20ng/mL in infants and children. Performed By: #### C MP, 70701-6, CBC, 32101-1, THYR #### [facility] ([id number]) [address], [address] [place] [address] MG MAMM SASCHA DIAG FUon 2021 MG MAMM SASCHA DIAG FU Patient: ANJU PISANO Exam Date: 02/24/2022 : 1960 Gender:F Ordering : JOSE D YUMIKO Admission #: [id number] Family : Order #: [id number] CLICK HERE TO VIEW EXAM RADIOLOGY REPORT [...] Treatments None Family Cancers None LOCATION: [facility] BREAST COMPOSITION: Scattered areas fibroglandular density. FINDINGS: [...] MD on 02/24/2022 at 10:38 Normal [facility] US BREAST SASCHA LIMITEDon 09- US BREAST SASCHA LIMITED Patient: ANJU PISANO Exam Date: 02/24/2022 : 1960 Gender:F Ordering : JOSE D YUMIKO Admission #: [id number] Family : Order #: [id number] CLICK HERE TO VIEW EXAM RADIOLOGY REPORT [...] Treatments None Family Cancers None LOCATION: [facility] BREAST COMPOSITION: Scattered areas fibroglandular density. FINDINGS: [...] Alarcon MD on 02/24/2022 at 10:38 Normal [facility] XR DEXA BONE DENSITYon 02-24 XR [...] by: DARREN ALARCON Date: 2022-02-24 16:14 Normal [facility] MG MAMM SCREEN 3D SASCHA CADon 01-04-2022 MG MAMM SCREEN 3D SASCHA CAD Patient: ANJU PISANO Exam Date: 01/04/2022 : 1960 Gender:F Ordering : JOSE D CALDERON Admission #: [id number] Family : Order #: [id number] CLICK HERE TO VIEW EXAM RADIOLOGY REPORT PROCEDURE: MAMMOGRAM SCREENING 3D BILATERAL CAD COMPARISON: None. INDICATIONS: Screening for malignant neoplasm of breast Calculator Name NCI Breast Cancer Risk Assessment Tool 5 Year Breast Cancer Risk 2.00% Lifetime Breast Cancer Risk 10.00% Personal Breast Cancer No Personal Ovarian Cancer No Treatments None Family Cancers None LOCATION: [facility] BREAST COMPOSITION: Scattered areas fibroglandular density. FINDINGS: [...] Mcdonald M.D. on 01/05/2022 at 16:00 Normal [facility] Initial Visit (Orthopaedic [facility])on 10-29-2020 Initial Visit (Orthopaedic Surgery) Diagnoses/Problems Assessed [...] 12/11/2017 2:26:46 PM Current Meds Medication NameInstruction [place] Thyroid 60 MG Oral Tablet DULoxetine HCl [...] tablet ... Vitamin D (Ergocalciferol) 1.25 MG (48568 UT) Oral Capsule Signatures Electronically signed by : Maurizio Kaplan MD; Nov 02 2020 5:14PM EST (Author) Normal [employer] KNEE , 1 OR 2 VIEWSon 2020 KNEE , 1 OR 2 VIEWS Patient Name: ANJU PISANO STUDY: KNEE; 1 OR 2 VIEWS; 10/29/2020 11:34 am INDICATION: BILATERAL KNEE PAIN. COMPARISON: 12/11/2017 ACCESSION NUMBER(S): [id number] ORDERING CLINICIAN: MAURIZIO KAPLAN FINDINGS: Bilateral knees, three views of each Bilateral total knee arthroplasties. No periprosthetic fracture or lucency seen. Small effusions bilaterally. No dislocation. IMPRESSION: No hardware failure about bilateral total knee arthroplasty Electronically signed by: JEAN MICHEL MD Normal [facility] KNEE , 1 OR 2 VIEWS Patient Name: ANJU PISANO STUDY: KNEE; 1 OR 2 VIEWS; 10/29/2020 11:34 am INDICATION: BILATERAL KNEE PAIN. COMPARISON: 12/11/2017 ACCESSION NUMBER(S): [id number] ORDERING CLINICIAN: MAURIZIO KAPLAN FINDINGS: Bilateral knees, three views of each Bilateral total knee arthroplasties. No periprosthetic fracture or lucency seen. Small effusions bilaterally. No dislocation. IMPRESSION: No hardware failure about bilateral total knee arthroplasty Electronically signed by: JEAN MICHEL MD Normal [facility] AFINION A1Con 05-13-2019 HbA1c (Bld) [Mass fraction] 6.3 G/DL High 4.5-6.0 [facility] Comment on above: Performed By: #### 678, 0580, 1320, 4543 #### [facility] Unless Otherwise Noted [address] [place] [address] / COLA #4724/CLIA # [id number] FT3on 05-13-2019 FT3 4.60 pg/mL Normal 2.71-6.16 [facility] Comment on above: Performed By: #### 750, 4500, 4510, 4520 #### [facility] Unless Otherwise Noted [address] [place] [address] / COLA #4724/CLIA # [id number] FT4on 05-13-2019 Free T4 [Mass/Vol] 0.84 ng/dL Normal 0.64-1.79 [facility] Comment on above: Performed By: #### 750, 4500, 4510, 4520 #### [facility] Unless Otherwise Noted [address] [place] [address] / COLA #4724/CLIA # [id number] TSHon 05-13-2019 TSH Qn 3.16 uIU/ml Normal 0.47-4.68 [facility] Comment on above: Performed By: #### 750, 4500, 4510, 4520 #### [facility] Unless Otherwise Noted [address] [address] / COLA #4724/CLIA # [id number] History and Physical - Surgi renny Update < 30 dayson 06-05-2018 History and Physical - Surgical Update < 30 days History & Physical Reviewed:/Lactating: Are You no (1) Are You Currently Breastfeedingno (1) I have reviewed the History and Physical dated: 27-Bhx-1442Jwwxouk and Physical reviewed and relevant findings noted. [...] - Preop v2 06/05/2018 07:50 AM Normal [facility] Homegoing Instructionson Homegoing Instructions Additional Instructions:Medication Information: Medication InstructionsThere were no changes to your routine home medications from this visit.Continue to follow your current regimen. Do not drive or operate machinery iftaking narcotic pain medication. Take as directed. Appointments: Service/Clinician NameCall [phone] to schedule your 2-4 week follow upappointment. Belongings Returned: Valuables/Medications/Belongings Returnedyes Electronic Signatures:Tequila Torres (RN) (Signed 05-Jun-2018 10:48)Authored: Additional InstructionsKarina Godinez (POULTRY OFFAL ICER-ORIENTAL RUG REPAIRER) (Signed 05-Jun-2018 08:37)Authored: Additional Instructions Last Updated: 05-Jun-2018 10:48 by Tequila TorresRN) Normal [facility] OPERATIVE REPORTon 8 OPERATIVE REPORT [place] [id number] Patient Name: BAO PISANON: [id number]: 1960Encounter Number: [id number] of Service: 06/05/2018Patient Location: AOR AOR0 [id number] Type: OSurgeon: LINDA Balbuenaeport Type: Operative ReportsPREOPERATIVE DIAGNOSIS: Bilateral knee osteoarthritis.POSTOPERATIVE DIAGNOSIS: Bilateral knee osteoarthritis.OPERATION/PROCEDUR E: Bilateral genicular nerve block.ANESTHESIA: Local with IV sedation.SURGEON: Dr. Jd Tmimons.HOTEL CASINO FLOORPERSON(S): Dr. Ozzie ParikhCOMPLICATIONS: Apparently none.LOCATION: [facility].PROCEDURE NOTE: The patient was identified [...] PM ESTTT: 06/06/2018 04:46 AM ESTDICTATION NUMBER: [id number] JOB NUMBER: [id number]:Maurizio Perry MDElectronically Signed by Dr. Jd Timmons 06/12/2018 01:25:04 PM Normal [facility] Patient Profile - Preop v2on 06-05-2018 Protein mass conc Profile:Initial Info:How to be AddressedLyndaSpoken Language PreferredEnglishSource of InformationpatientAre you currently using the Personal Electronic Health Record or MYUHCAREnoAre you interested in learning more about [facility] for the management of yourhealthnot at this timeStated Reason for AdmissionBilateral Knee InjectionsPrimary Contact Name and NumberJeff HusbandLimitations on Visitors/Phone CallsnonePatient Belongingsremains with patientMedications Brought to Hospitalno General Health:Weight in kg98.4 kilogram(s)Weight in fyx880 pound(s)Weight MethodstatedHeight in cm154.9 centimeter(s)Height in feet5 [...] for HIGH RISK.Are there any cultural, spiritual, zoroastrian practices/values/needs that areimportant for us to knownoDo you want a visit/item from Pastoral CarenoWould you like your Barge Pilot/Aviation Technician Aircraft notifiednoPain Scalenumerical 0-10Pain Scale Educationteaching providedCurrent Pain Level10 = SevereAcceptable Pain Level10 = SevereExpression of Pain (nonverbal)verbalizationChronic PainyesChronic Lower Extremity pain locationknee Information Review: Allergies, Home Meds and Significant Events have been Reviewed and Verifiedwith Patient/Familyyes Allergy, Intolerance, Adverse Event: Allergies: No Known Allergies: Active Significant Events:05-Jun-2018 Gallbladder: Past Surgical History, Aadppd22-Swe-3734 C Section: Past Surgical History, Kleelc81-Nmq-7906 Left Knee: Past Surgical History, Oirddc30-Sjo-2379 2 surgeries Right Knee: Past Surgical History, Xbmcwo82-Rdn-4305 Hysterectomy: Past Surgical History, Cghmdt33-Bqh-9335 HTN: Past Medical History, Active Electronic Signatures:Tequila Torres) (Signed 05-Jun-2018 08:09)Authored: Profile, Additional Information Last Updated: 05-Jun-2018 08:09 by Tequila Torres (RN) Normal [facility] Preop Checkliston 06-05-2018 Preop Checklist Preop Checklist:Preo p Checklist: Arrival Pgap65-Zxf-7240 Arrival Time07:49 Procedure TypeBilateral Knee Injections NPO Birarx40-Xrv-7996 22:30 ID Band Onyes Allergy Bandno known [...] 05-Jun-2018 08:11 by Tequila Torres (RN) Normal [facility] Vital Signs Date Time Vital Sign Value Performing Clinician Faci laquita 03-25-2020 11:03-0400 BMI (Body Mass Index) 45.7 kg/m2 [facility] 03-25-2020 11:03-0400 Body Temperature 97 [degF] [facility] 03-25-2020 11:03-0400 Body weight 106.14 kg [facility] 03-25-2020 11:030400 Height 152.4 cm [facility] Encounters Encounter Date Encounter Type Care Provider Facility Start: 02-13-2024 End: 02-13-2024 Emergency department patient visit Richa Carpenternell Facility:[facility] Start: 01-16-2024 End: 01-16-2024 ambulatory EROS ROGERS Not Available Start: 01-10-2024 End: 01-10-2024 ambulatory [facility] Start: 11-20-2023 End: 11-20-2023 Emergency department patient visit Livan Andrade Facility:[facility] Start: 10-23-2023 End: 10-23-2023 ambulatory EROS ROGERS Not Available Start: 10-10-2023 End: 10-11-2023 ambulatory [facility] Start: 10-10-2023 End: 10-10-2023 ambulatory [facility] Start: 08-14-2023 Lu donovan MD Work Phone: [facility] Comment on above: Type 2 diabetes gonsalo itus without complication, without long- term current use of insulin ([facility]) Start: 01-25-2023 ambulatory QI SHAMMO Facility:[facility] Start: 02-24-2022 End: 02-25-2022 ambulatory JOSE D YUMIKO Facility:[facility] Start: 01-04-2022 End: 01-05-[address] Maurizio Mcdonald Facility:[facility] Start: 10-29-2020 Office outpatient ne w 30 minutes Maurizio Penny Work Phone: [facility] Work Phone: Start: 03-25-2020 End: 03-25-2020 Office outpatient new 30 minutes Rudi Rose Work Phone: [facility] Comment on above: History of total kne e arthroplasty, bilateral (Primary Dx); Pain due to bilateral hip joint prostheses, initial encounter Start: 03-25-2020 End: 03-25-2020 Subsequent hospital visit by physician Rudi Rose Work Phone: [facility] Start: 03-05-2019 Registered Recurring Maurizio Penny -Physical Therapy [facility] [place] Start: 02-19-2019 End: 02-19-2019 Patient encounter procedure Maurizio Penny -[facility] Start: 01-22-2019 End: 01-22-2019 Patient encounter procedure Maurizio Penny -[facility] Start: 12-16-2018 End: 12-16-2018 Emergency department patient visit Maurizio Penny -Emergency Room Start: 06-05-2018 End: 06-05-2018 Patient encounter procedure Al-Trupti Timmons Facility:[facility] Procedures Date Procedure Procedure Detail [...] 02-27-2024 Adult BMI Screening [facility] Start: 02-27-2024 Tobacco Screening Tobacco [facility]ening [facility] Start: 02-27-2024 Urine screening for protein [facility]rine Microalbumin [facility] Start: 10-31-2023 End: 10-31-2023 Patient encounter procedure 10/31/2023 9:00 AM EDT [facility] [address] [place] [address] Abdifatah Montesinos MD [address] [place] [address] [facility] Start: 09-04-2023 End: 09-04-2023 Patient encounter procedure 09/04/2023 9:30 AM EDT Office Visit [facility] [address] [place] [address] Gaby Cornell, POULTRY OFFAL ICER-ORIENTAL RUG REPAIRER [address] [place] [address] [facility] Start: 02-09-2023 COVID-19 Vaccine ( season) COVID-19 Vaccine ( season) [facility] Start: 02-09-2023 Influenza vaccination Influenza Vaccine [facility] Start: 02-10-2020 Influenza vaccination INFLUENZA VACCINE (#1) [facility] Start: 2011 Administration of varicella zoster vaccine Zoster (Shingles) Vaccine (1 of 2) [facility] Start: 2011 Colonoscopy COLORECTAL CANCER SCREENING DISCUSSION [facility] Start: 2011 Zoster vaccine hzv live for subcutaneous use ZOSTER (SHINGLES) VACCINE (1 of 2) [facility] Start: 2001 Fasting lipid profile LIPID SCREENING [facility] Start: 2001 Screening mammography MAMMOGRAM SCREENING DISCUSSION [facility] Start: 1982 Screening for malignant neoplasm of cervix CERVICAL CANCER SCREENING DISCUSSION [facility] Start: 1980 DTaP,Tdap and Td Vaccines (1 - Tdap) DTaP,Tdap and Td Vaccines (1 - Tdap) [facility] Start: 1980 Third diphtheria, tetanus and acellular pertussis (DTaP) vaccination TDAP (ADULT) [facility] Start: 1979 Adult BMI Follow Up Plan Adult BMI Follow Up Plan [facility] Start: 1979 Diabetic foot examination Diabetic Foot Exam [facility] Start: 1979 Tetanus vaccination TETANUS [facility] Start: 1974 HIV screening HIV SCREENING DISCUSSION [facility] Start: 1973 Depression Screening Depression Screening [facility] Start: 1961 Glaucoma screening Diabetic Ophthalmology Exam [facility] Start: 1961 Hepatitis C antibody, confirmatory test HEPATITIS C VIRUS SCREENING [facility] Start: 1961 TSH Qn TSH [facility] Radiography for bone length studies XR BONE LENGTH STUDY Imaging Routine History of total knee arthroplasty, bilateral 03/25/2020 11:00 AM EDT [facility] X-ray of left knee XR KNEE LEFT 3 VIEWS Imaging Routine History of total knee arthroplasty, bilateral 03/25/2020 11:00 AM EDT [facility] X-ray of right knee XR KNEE RIGH T 3 VIEWS Imaging Routine History of total knee arthroplasty, bilateral 03/25/2020 11:00 AM T [facility] Immunizations Immunization Date Immunization Notes Care Provider [facility] 02-03-2023 influenza virus vaccine, unspecified formulation Abdifatah Montesinos MD Work Phone: [facility] Payers Date Payer Category Payer Unknown [id number] 2023 Unknown [id number] 2021 Unknown 2021 Unknown [id number] 2019 Unknown [employer] [id number] 2019-Present [id number] 1960 Unknown [id number] 1960 Unknown [id number] 1960 Unknown [id number] 1960 Unknown [id number] 1960 Unknown [id number] 1960 Unknown [id number] 1960 Unknown [id number] 1960 Unknown [id number] 1960 Unknown [id number] Self-pay Self Pay [id number] Unknown [id number] Unknown Self Pay [id number] Unknown [id number] Social History Date Type Detail Facility Start: 12-16-2018 End: 05-24-2022 Tobacco smoking status NHIS Ex-smoker (finding) [facility] Start: 1960 Sex Assigned At Female F [facility] Start: 03-25-2020 End: 05-24-2022 Tobacco use and exposure Never used [facility] Start: 03-25-2020 Alcohol intake Ex-drinker (finding) [facility] Start: 03-25-2020 Tobacco Comment quit 10 years ago [facility] Start: 1960 Sex Assigned At Not on file A [facility] Start: 07-22-2020 End: 02-26-2023 Never a smoker [facility] History of tobacco use Current smoker [facility] Start: 02-26-2023 Alcohol intake Current non-dr conveyor operator of alcohol (finding) [facility] Start: 07-22-2020 End: 02-26-2023 Tobacco use panel [facility] Childcare Unknown [facility] Medical Equipment Procedure Code Equipment Code [...] these instructions at home: Medicines ? Take zpzj-viz-ygbuscq and prescription medicines only as told by [...] have trouble op (more content not included)... [facility] Progress note 01-10-2024 Note Date & Type [...] Diabetes education: [No] Seen by a certified income tax preparer (CDE) within 12 months Meal plan: [No] Seen by a audio visual production specialist within 12 months [ ] Consistent carbohydrate [...] satiety [No] Feet numbness/pain/tingling [Yes] Patient seeing edi analyst/diet therapist regularly [No] Patient seeing dentist regularly - has partials [No] Patient seeing electric blanket packer regularly REVIEW OF SYSTEMS Review of Systems [...] 600 mg by mouth., Disp: , Rfl: tovc-pfumn-IXH-zsg-uxhiyyk-cxm 100 mg-100 mcg- 100 mg-100 mg capsule, 1,000 mg., Disp: , Rfl: dapagliflozin propanediol (Farxiga) 5 mg, Take one tablet daily by mouth, Disp: 30 tablet, Rfl: 2 DOCOSAHEXAENOIC ACID ORAL, Take by mouth., Disp: , Rfl: ergocalciferol (Vitamin D-2) 1.25 MG (83811 Units) capsule, , Disp: , Rfl: losartan (Cozaar) 100 mg tablet, 1 tab(s), PO, Daily, # 90 tab(s), 3 Refill(s), [facility]: [facility] [phone], TAKE ONE TABLET BY MOUTH DAILY, Disp: [...] 2 diabetes mellitus (more content not included)... [facility] Clinical Note 11-20-2023 Note Date & Type [...] is often the best treatment. ? Taking ddue-lro-yxjyxcq medicines to help take the pain away, if your doctor tells you to take them. ? If there are any cuts, these will need to be repaired as well. ? Any deeper injuries may require treatment and follow up with a specialist, such as a surgeon or clinical training specialist. Follow these instructions at home: Managing [...] or lying down. General instructions ? Take yvhp-oww-dnxlaxo and prescription medicines only as told by [...] provider. Document Revised: 07/04/2021 Document Reviewed: 07/04/2021 [employer] Patient Education ? 2022 Powered by [employer] Orthopedics Knee Sprain, Adult A knee sprain [...] brace if y (more content not included)... [facility] Progress note 10-10-2023 Note Date & Type [...] Diabetes education: [No] Seen by a certified income tax preparer (CDE) within 12 months Meal plan: [No] Seen by a audio visual production specialist within 12 months [ ] Consistent carbohydrate [...] satiety [No] Feet numbness/pain/tingling [Yes] Patient seeing edi analyst/diet therapist regularly [No] Patient seeing dentist regularly - has partials [No] Patient seeing electric blanket packer regularly REVIEW OF SYSTEMS Review of Systems [...] 600 mg by mouth., Disp: , Rfl: giyl-kigog-WXK-yyw-xrvrjot-mnz 100 mg-100 mcg- 100 mg-100 mg capsule, 1,000 mg., Disp: , Rfl: DOCOSAHEXAENOIC ACID ORAL, Take by mouth., Disp: , Rfl: ergocalciferol (Vitamin D-2) 1.25 MG (48544 Units) capsule, , Disp: , Rfl: losartan (Cozaar) 100 mg tablet, 1 tab(s), PO, Daily, # 90 tab(s), 3 Refill(s), Pharmacy: [facility] [id number], TAKE ONE TABLET BY MOUTH DAILY, Disp: [...] hyperglycemia, without long-term current use of insulin ([facility]) - Vitamin D 25 hydroxy; Future - CBC; Fut (more content not included)... [facility] History of Present illness Narrative 11-03-2018 Note [...] not corrected for typographical or grammatical errors.. [address] Work Phone: Evaluation note Note Date & Type Note Facility Evaluation note Diagnosis Type 2 diabetes mellitus without complication, without long-term current use of insulin ([facility]) documented in this encounter [employer] Instructions Note Date & Type Note [...] joint prostheses, initial encounter Rudi Rose MD [address] [place] [id number] Scheduling Instructions . Status Reason Specialty Diagnoses / Procedures Referred By Contact Referred To Contact Pending Review Diagnoses History of total knee arthroplasty, bilateral Procedures XR BONE LENGTH STUDY Rudi Rose MD [address] [place] [id number] Status Reason Specialty Diagnoses / Procedures Referred By Contact Referred To Contact Pending Review Diagnoses History of total knee arthroplasty, bilateral Procedures XR KNEE RIGHT 3 VIEWS Rudi Rose MD [address] [place] [address] Status Reason Specialty Diagnoses / Procedures Referred By Contact Referred To Contact Pending Review Diagnoses History of total knee arthroplasty, bilateral Procedures XR KNEE LEFT 3 VIEWS Rudi Rose MD [address] [place] [address] History of Present Illness * SYDNIE BUSH [...] but due to thefact she lives in [place], she desires more local care. She has [...] loss. I suggested she consult with her 1st pressman regarding this. She agrees with this. For [...] we will consider revision arthroplasty for optimal half-way management. She agrees with this plan. All [...] file Gets together: Not on file Attends zoroastrian service: Not on file Active member of [...] Narrative Not on file Current Outpatient Medications: [place] Thyroid 60 MG tablet, , Disp: , [...] 03/25/2020 11:12 AM Patient: Anju Pisano MR#: [id number] : 1960 Age: 59 y.o. Referring Physician: Self, Self Insurance: Payor: [employer] EXCHANGE / Plan: [employer] / Product Type: *No Product type* [...] [x]cane, []bracing Are you followed by a isobutylene operator chief? [] [x] Name: Are you followed by pain management? [] [x] Name: Are you followed by any other specialists? [] [x] Name: Outpatient Medications Prior to Visit Medication Sig Dispense Refill [place] Thyroid 60 MG tablet losartan 100 MG tablet oxyCODONE-acetaminophen 5-325 MG per tablet No facility-administered medications prior to visit. Current Outpatient Medications: [place] Thyroid 60 MG tablet, , Disp: , [...] section and content) DATE CREATED AUTHOR 06/12/2018 [facility] DATE CREATED AUTHOR AUTHOR'S ORGANIZ ATION 05/16/2019 [facility] DATE CREATED AUTHOR AUTHOR'S ORGANIZ ATION 11/05/2020 [facility] DATE CREATED AUTHOR AUTHOR'S ORGANIZ ATION 11/06/2020 [employer] DATE CREATED AUTHOR AUTHOR'S ORGANIZ ATION 03/08/2022 [facility] DATE CREATED AUTHOR AUTHOR'S ORGANIZ ATION [facility]20[facility] DATE CREATED AUTHOR AUTHOR'S ORGANIZ ATION 10/11/2023 [facility] DATE CREATED AUTHOR AUTHOR'S ORGANIZ ATION 01/12/2024 [facility] DATE CREATED AUTHOR AUTHOR'S ORGANIZ ATION 01/18/2024 [facility] DATE CREATED AUTHOR AUTHOR'S ORGANJAMES ATION 02/22/2024 [facility] Reason for Visit (unrecogniz ed section and content) Status Reason Specialty Diagnoses / Procedures Referred By Contact Referred To Contact Pending Review Diagnoses History of total knee arthroplasty, bilateral Procedures XR BONE LENGTH STUDY Rudi Rose MD [address] [place] [address] Reason Comments Pain Reason Comments Med Refill [...] BE BASED ON THE PRIMARY CLINICAL RECORDS. [employer] provides no warranty or guarantee of the accuracy or completeness of information in this document.
== END 2024-05-14 07:44 | disposition home or self-care (01) ==
LOC: MRI 07:43
PROVIDERS: PCP Nurse Practitioner; Visit Provider Orthopaedic Surgery
DX: M19.011 Primary osteoarthritis, right shoulder (principal); S46.011A Strain of muscle(s) and tendon(s) of the rotator cuff of right shoulder, initial encounter
CPT/HCPCS: 73221

== ENCOUNTER 2024-06-19 08:21 | Outpatient (OUT) | payer MEDICARE, SELFPAY ==
--- NOTE | 2024-06-19 08:24 | CT_ITS ---
The [address] [address] Patient Name: KARLOS PISANO MRN: [id number] date: 1960 Sex: F Assigned Patient Location: CT Current Patient Location: CT Accession/Order Number: [id number] Exam Date: 06/19/2024 08:38 Report Date: 06/19/2024 10:41 At the request of: MANOHAR MEJIA Procedure: CT shoulder RT wo con Exam Type: CT RIGHT SHOULDER Exam Date and Time: 06/19/2024 8:38 AM EST Indication: 64 years old Female with pain Comparison: MRI 05/14/2024 TECHNIQUE: Axial CT images of the right shoulder were obtained without intravenous contrast. Coronal and sagittal reformatted images were obtained. 3-D surface rendering was performed. Dose reduction techniques were achieved by using automated exposure control and/or adjustment of mA and/or kV according to patient size and/or use of iterative reconstruction technique. FINDINGS: The AC joint appears congruent with mild joint space narrowing and marginal osteophytes as well as subchondral cystic changes. Subacromial spur is noted. The humerus is centered on the glenoid. Moderate to severe osteoarthritis with joint space narrowing marginal osteophytes. Subchondral cystic changes are noted within the central glenoid. Small joint effusion is present. See recent MRI report for integrity the rotator cuff. No axillary lymphadenopathy. Limited evaluation of the right hemithorax is without acute or suspicious abnormality. Old granulomatous disease is noted. CT/CT shoulder RT wo con IMPRESSION: Degenerative changes without acute osseous abnormality. Electronically authenticated by: NAVARRO ALMANZA Date: 06/19/2024 10:41
== END 2024-06-19 08:22 | disposition home or self-care (01) ==
LOC: CT 08:21
PROVIDERS: PCP Nurse Practitioner; Visit Provider Orthopaedic Surgery
DX: M19.011 Primary osteoarthritis, right shoulder (principal)
CPT/HCPCS: 73200